=== PATIENT | female | born 1975 | race Caucasian/White ===

== ENCOUNTER 2019-04-03 14:01 | Emergency (ER) | payer SELFPAY ==
[2019-04-03 15:57] LABS: ALT/SGPT 19 U/L (12-78); AST/SGOT 9 U/L (15-37); Albumin 3.8 g/dL (3.4-5.0); Alkaline Phosphatase 50 U/L (45-117); BUN Blood Urea Nitrogen 11 mg/dL (7-18); Bicarbonate 27 mmol/L (21-32); Bilirubin Direct < 0.1 mg/dL (0-0.2); Bilirubin Total 0.2 mg/dL (0.2-1.0); Glucose Level 89 mg/dL (74-106); Potassium 3.9 mmol/L (3.5-5.1); Protein, Total 6.9 g/dL (6.4-8.2); Sodium Level 141 mmol/L (136-145); Troponin (Emerg Dept Use Only) < 0.02 ng/mL (0.0-0.045)
[2019-04-03 15:58] LABS: Absolute Lymphocytes (CBC) 2.1 K/uL (0.7-4.9); Basophils % 0.8 % (0-1.3); Lymphocytes % 28.2 % (15.3-44.8); MPV 7.4 fL (7.6-11.3); RBC Red Blood Cell Count 3.24 M/uL (3.86-4.86)
[2019-04-03 16:03] LABS: Protime INR 0.94
[2019-04-03 16:30] LABS: Anisocytosis 1+; Blood Morphology Comment NOTED (NOT SEEN); Hypochromasia 1+; Platelet Estimate ADEQ; Urine White Blood Cell Casts OK
--- NOTE | 2019-04-03 16:56 | ER ---
Nurse's Notes [facility] Name: Gi Bentley Age: 44 yrs Sex: Female : 1975 Arrival Date: 04/03/2019 Time: 14:03 Bed 5 Private MD: Diagnosis: Anemia in chronic diseases classified elsewhere Presentation: 04/03 14:31 Presenting complaint: Patient states: I was in rehab, and did a routine blood work. ca1 They told me my blood count is at 6. I had a BT and Iron transfusions in September because my blood count then was 4. I have Fibroids in my Uterus and I bleed a lot during my periods. But I am not in my period right now. I have bad cramping now. Transition of care: patient was not received from another setting of care. Onset of symptoms was April 03, 2019. Risk Assessment: Do you want to hurt yourself or someone else? Patient reports no desire to harm self or others. Initial Sepsis Screen: Does the patient meet any 2 criteria? No. Patient's initial sepsis screen is negative. Does the patient have a suspected source of infection? No. Patient's initial sepsis screen is negative. Care prior to arrival: None. 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 - Coronavirus screen:: The patient has NOT traveled to [place] in the past 14 days. The patient has NOT had contact with known/suspected case of Coronavirus?. - Social history:: Smoking status: Patient reports the use of cigarette tobacco products, smokes one-half pack cigarettes per day, Patient uses alcohol, patient/guardian reports chronic longstanding heavy alcohol consumption. street drugs, heroin, Methamphetamine (Meth). - Ebola Screening: : Patient negative for fever greater than or equal to 101.5 degrees Fahrenheit, and additional compatible Ebola Virus Disease symptoms Patient denies exposure to infectious person Patient denies travel to an Ebola-affected area in the 21 days before illness onset No symptoms or risks identified at this time. Screenin:31 Abuse screen: Denies threats or abuse. Denies injuries from another. Nutritional hb screening: No deficits noted. Tuberculosis screening: No symptoms or risk factors identified. Fall Risk None identified. Assessment: 15:15 General: Appears in no apparent distress. Behavior is calm, cooperative. Pain: Denies hb pain. Neuro: Level of Consciousness is awake, alert, obeys commands, Oriented to person, place, time, situation. Cardiovascular: Heart tones S1 S2 present Capillary refill < 3 seconds Patient's skin is warm and dry. Respiratory: Airway is patent Respiratory effort is even, unlabored, Respiratory pattern is regular, symmetrical, Breath sounds are clear bilaterally. GI: No signs and/or symptoms were reported involving the gastrointestinal system. : No signs and/or symptoms were reported regarding the genitourinary system. EENT: No signs and/or symptoms were reported regarding the EENT system. Derm: Skin is intact, is healthy with good turgor, Skin is dry, Skin is pale, Skin temperature is warm. Musculoskeletal: No signs and/or symptoms reported regarding the musculoskeletal system. 16:00 Reassessment: Patient appears in no apparent distress at this time. Patient and/or hb family updated on plan of care and expected duration. Pain level reassessed. Patient is alert, oriented x 3, equal unlabored respirations, skin warm/dry/pink. 17:00 Reassessment: Patient appears in no apparent distress at this time. Patient and/or hb family updated on plan of care and expected duration. Pain level reassessed. Patient is alert, oriented x 3, equal unlabored respirations, skin warm/dry/pink. Vital Signs: 14:39 BP 123 / 82; Pulse 82; Resp 17 S; Temp 97.8(O); Pulse Ox 100% on R/A; Weight 58.97 kg ca1 (R); Height 5 ft. 2 in. (157.48 cm) (R); 15:20 BP 120 / 86 Supine; Pulse 82; hb 15:25 BP 122 / 81 Sitting; Pulse 86; hb 15:30 BP 121 / 85 Standing; Pulse 88; hb 16:30 BP 131 / 90; Pulse 81; Resp 16; Pulse Ox 99% on R/A; hb 14:39 Body Mass Index 23.78 (58.97 kg, 157.48 cm) ca1 ED Course: 14:03 Patient arrived in ED. as 14:35 Triage completed. ca1 14:39 Arm band placed on right wrist. ca1 15:08 Abe Castro PA is PHCP. cp 15:09 Lowell Bustamante MD is Attending Physician. cp 15:25 Inserted saline lock: 20 gauge antecubital area, using aseptic technique. Blood hb collected. 15:31 Patient has correct armband on for positive identification. Placed in gown. Bed in low hb position. Call light in reach. Side rails up X 1. 15:56 Amira Johnson, RN is Primary Nurse. hb 16:55 Tigist Smith MD is Referral Physician. cp 17:02 No provider procedures requiring assistance completed. IV discontinued, intact, hb bleeding controlled, No redness/swelling at site. Pressure dressing applied. Administered Medications: No medications were administered Outcome: 16:55 Discharge ordered by . cp 17:02 Discharged to home ambulatory, with friend. hb 17:02 Condition: stable 17:02 Discharge instructions given to patient, Instructed on discharge instructions, follow up and referral plans. medication usage, Demonstrated understanding of instructions, follow-up care, medications, Prescriptions given X 1. 17:03 Patient left the ED. hb Signatures: Karen Hull Corey, PA PA cp Amira Johnson, RN RN hb Isamar Oliver RN RN ca1
--- NOTE | 2019-04-03 16:56 | EDPHYS ---
Physician Documentation [facility] Name: Gi Bentley Age: 44 yrs Sex: Female : 1975 Arrival Date: 04/03/2019 Time: 14:03 Bed 5 Private MD: ED Physician Lowell Bustamante HPI: 04/03 15:14 This 44 yrs old Female presents to ER via Ambulatory with complaints of cp Abnormal Lab Results. 15:15 Patient reports having blood work yesterday that indicated she was anemic. Patient has cp had anemia in the past that required blood transfusion and iron transfusion. Anemia is due to heavy menstrual bleeding. Denies any current menstrual or rectal bleeding. 15:15 Patient reports she is from [place], [place] and staying at [facility] for drug addiction treatment. Patient reports having routine blood work yesterday indicating she was anemic, so she was told to come to ED for evaluation. 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 - Coronavirus screen:: The patient has NOT traveled to [place] in the past 14 days. The patient has NOT had contact with known/suspected case of Coronavirus?. - Social history:: Smoking status: Patient reports the use of cigarette tobacco products, smokes one-half pack cigarettes per day, Patient uses alcohol, patient/guardian reports chronic longstanding heavy alcohol consumption. street drugs, heroin, Methamphetamine (Meth). - Ebola Screening: : Patient negative for fever greater than or equal to 101.5 degrees Fahrenheit, and additional compatible Ebola Virus Disease symptoms Patient denies exposure to infectious person Patient denies travel to an Ebola-affected area in the 21 days before illness onset No symptoms or risks identified at this time. ROS: 15:22 Eyes: Negative for injury, pain, redness, and discharge. cp 15:22 Constitutional: Negative for body aches, chills, fever, poor PO intake. 15:22 Cardiovascular: Negative for chest pain, edema, palpitations. 15:22 Respiratory: Negative for cough, shortness of breath, wheezing. 15:22 Abdomen/GI: Negative for abdominal pain, nausea, vomiting, and diarrhea, black/tarry stool, rectal bleeding. 15:22 : Negative for urinary symptoms, vaginal bleeding. 15:22 Neuro: Negative for altered mental status, dizziness, headache, syncope, weakness. 15:22 All other systems are negative. Exam: 15:23 Head/Face: Normocephalic, atraumatic. cp 15:23 Constitutional: The patient appears in no acute distress, alert, awake, non-diaphoretic, non-toxic, well developed, well nourished. 15:23 Eyes: Periorbital structures: appear normal, Conjunctiva: normal, no exudate, no injection, Lids and lashes: appear normal, bilaterally. 15:23 ENT: External ear(s): are unremarkable, Nose: is normal, Mouth: Lips: moist, Oral mucosa: pink and intact, moist, Posterior pharynx: is normal, airway is patent, no erythema, no exudate. 15:23 Chest/axilla: Inspection: normal, Palpation: is normal, no crepitus, no tenderness. 15:23 Cardiovascular: Rate: normal, Rhythm: regular, Edema: is not appreciated, JVD: is not appreciated. 15:23 Respiratory: the patient does not display signs of respiratory distress, Respirations: normal, no use of accessory muscles, no retractions, labored breathing, is not present, Breath sounds: are clear throughout, no decreased breath sounds. 15:23 Abdomen/GI: Inspection: abdomen appears normal, Palpation: abdomen is soft and non-tender, in all quadrants. 15:23 Back: pain, is absent, ROM is normal. 15:23 Skin: no rash present. 15:23 Neuro: Orientation: to person, place \T\ time. Mentation: is normal, Cerebellar function: is grossly normal, Motor: moves all fours, strength is normal, Sensation: is normal. 15:35 ECG was reviewed by the Attending Physician. cp 16:50 : Rectal exam: is refused by patient or guardian. cp Vital Signs: 14:39 BP 123 / 82; Pulse 82; Resp 17 S; Temp 97.8(O); Pulse Ox 100% on R/A; Weight 58.97 kg ca1 (R); Height 5 ft. 2 in. (157.48 cm) (R); 15:20 BP 120 / 86 Supine; Pulse 82; hb 15:25 BP 122 / 81 Sitting; Pulse 86; hb 15:30 BP 121 / 85 Standing; Pulse 88; hb 16:30 BP 131 / 90; Pulse 81; Resp 16; Pulse Ox 99% on R/A; hb 14:39 Body Mass Index 23.78 (58.97 kg, 157.48 cm) ca1 MDM: 15:12 Patient medically screened. cp 15:30 Differential Diagnosis GI bleed, anemia, electrolyte abnormality, cardiac arrythmia. cp 16:55 Data reviewed: vital signs, nurses notes, lab test result(s), EKG, I have discussed the cp patient's presentation/case with the attending Emergency Department Physician; and as a result, I will discharge patient. 16:55 Test interpretation: by ED physician or midlevel provider: ECG. cp 16:55 Counseling: I had a detailed discussion with the patient and/or guardian regarding: the cp historical points, exam findings, and any diagnostic results supporting the discharge/admit diagnosis, lab results, the need for outpatient follow up, an OB/Gyne specialist, to return to the emergency department if symptoms worsen or persist or if there are any questions or concerns that arise at home. 04/03 15:14 Order name: Basic Metabolic Panel cp 04/03 15:14 Order name: CBC with Diff cp 04/03 15:14 Order name: LFT's cp 04/03 15:14 Order name: PT-INR cp 04/03 15:14 Order name: Troponin (emerg Dept Use Only) cp 04/03 15:14 Order name: Ptt, Activated cp 04/03 15:59 Order name: Basic Metabolic Panel; Complete Time: 16:12 EDMS 04/03 16:12 Interpretation: Normal except: CL 108; GFR 86; CA 8.3. cp 04/03 15:59 Order name: Liver (Hepatic) Function; Complete Time: 16:12 EDMS 12 16:46 Interpretation: Normal except: AST 9. cp 02 15:59 Order name: Troponin (Emerg Dept Use Only); Complete Time: 16:12 EDMS 02 16:06 Order name: CBC with Automated Diff; Complete Time: 16:46 EDMS 0212 16:13 Interpretation: Normal except: RBC 3.24; HGB 6.6; HCT 22.0; MCV 67.9; MCH 20.5; MCHC cp 30.2; RDW 20.2; MPV 7.4. 02 16:07 Order name: Protime (+INR); Complete Time: 16:12 EDMS 02 16:07 Order name: PTT, Activated Partial Thromb; Complete Time: 16:12 EDMS 04/03 16:31 Order name: CBC Smear Scan; Complete Time: 16:46 EDMS 04/03 16:56 Order name: Urine Dipstick--Ancillary (enter results) bd 04/03 15:14 Order name: EKG; Complete Time: 15:15 cp 02 15:14 Order name: Cardiac monitoring; Complete Time: 15:31 cp 12 15:14 Order name: EKG - Nurse/Tech; Complete Time: 15:31 cp 04/03 15:14 Order name: IV Saline Lock; Complete Time: 15:31 cp 04/03 15:14 Order name: Labs collected and sent; Complete Time: 15:31 cp 12 15:14 Order name: O2 Per Protocol; Complete Time: 15:31 cp 04/03 15:14 Order name: O2 Sat Monitoring; Complete Time: 15:31 cp 04/03 15:14 Order name: Orthostatics; Complete Time: 15:31 cp 12 15:23 Order name: Urine Dipstick-Ancillary (obtain specimen); Complete Time: 15:56 cp 04/03 15:23 Order name: Urine Test (obtain specimen); Complete Time: 15:56 cp 04/03 16:56 Order name: Urine --Ancillary (enter results) bd EC:35 Rate is 76 beats/min. Rhythm is regular. SC interval is normal. QRS interval is normal. cp QT interval is normal. T waves are Flattened in lead III. Interpreted by me. Reviewed by me. Administered Medications: No medications were administered Disposition: 17:35 Co-signature as Attending Physician, Lowell Bustamante MD I agree with the assessment and kdr plan of care. Disposition: 04/03/19 16:55 Discharged to Home. Impression: Anemia in chronic diseases classified elsewhere. - Condition is Stable. - Discharge Instructions: Iron Deficiency Anemia, Adult, Anemia, Nonspecific, Iron-Rich Diet. - Prescriptions for Ferrous Sulfate 325 mg (65 mg Iron) Oral Tablet - take 1 tablet by ORAL route every 8 hours; 90 tablet. - Medication Reconciliation Form, Thank You Letter, Antibiotic Education, Prescription Opioid Use form. - Follow up: Tigist Smith MD; When: 2 - 3 days; Reason: Recheck today's complaints. - Problem is an ongoing problem. - Symptoms are unchanged. Signatures: Dispatcher [employer] EDMS Lowell Bustamante MD MD [facility] Abe Castro PA PA cp Amira Johnson, DAHLIA RN hb Acob, Isamar RN RN ca1 Corrections: (The following items were deleted from the chart) 16:12 16:12 Normal except: CL 108; GFR 86. cp cp 17:03 16:55 04/03/2019 16:55 Discharged to Home. Impression: Anemia in chronic diseases hb classified elsewhere. Condition is Stable. Forms are Medication Reconciliation Form, Thank You Letter, Antibiotic Education, Prescription Opioid Use. Follow up: Tigist Smith; When: 2 - 3 days; Reason: Recheck today's complaints. Problem is an ongoing problem. Symptoms are unchanged. cp
[2019-04-03 17:15] LABS: Urine Blood NEGATIVE (NEG); Urine Glucose NEGATIVE (NEG); Urine Protein NEGATIVE (NEG); Urine Specific Gravity 1.015 (1.005-1.030)
--- NOTE | 2019-04-03 17:58 | EKG ---
Test Date: 2019-04-03 Test Time: 15:32:13 Oceanography Professor: GALINA MEASUREMENT RESULTS: Intervals: Rate: 76 IL: 132 QRSD: 82 QT: 408 QTc: 459 [place]: P: 41 IL: 132 QRS: 27 T: 34 INTERPRETIVE STATEMENTS: Normal sinus rhythm normal ECG No previous ECG available for comparison Electronically Signed On 04-03-19 17:57:47 [employer]W OPERATOR by Yayo Olivo
[2019-04-04 22:47] VITALS: TEMP 97.8
[2019-04-04 22:52] VITALS: BP 131/90; O2SAT 99
== END 2019-04-03 17:03 | disposition home or self-care (01) ==
LOC: ER 14:01
DX: D64.9 Anemia, unspecified (principal); F20.9 Schizophrenia, unspecified; F31.9 Bipolar disorder, unspecified; F17.210 Nicotine dependence, cigarettes, uncomplicated
CPT/HCPCS: 36415; 80048; 80076; 81003; 81025; 84484; 85025; 85610; 85730; 93005; 99283

== ENCOUNTER 2019-04-03 22:50 | Emergency (ER) | payer SELFPAY ==
--- OUTSIDE RECORDS SUMMARY | 2019-04-03 22:55 | XMS REPORT ---
:1975 [facility] Address [address] [place] [address] Care Team Providers Name Role Phone Unavailable Unavailable Unavailable Payers Payer Name Policy Type Policy Number Effective Date Expiration Date Problems This patient has no known problems. Allergies, Adverse Reactions, Alerts Allergy Allergy Status Severity Reaction(s) Onset Inactive Treating Comments Name Type Date Date Clinician codeine DA Active 2019-02 00:00:0 0 codeine DA Active 2018-09 00:00:0 0 codeine DA Active 2015-01 00:00:0 0 Medications This patient has no known medications. Encounters Start End Encounter Admission Attending Care Care Encounter Date/Time Date/Time Type Type Clinicians Facility Department ID 2017-03-25 2017-03-25 Emergency [facility] [id number] 21:46:10 21:46:10 2017-03-25 2017-03-25 Emergency [facility] [id number] 20:41:10 20:41:10 Results Test Description Test Time Test Comments Text Results Atomic Results Result Comments CBC W/O DIFF 2018-10-12 05:41:00 Test Item Value Reference Range Comments WHITE BLOOD CELL (test code=WBC) 9.2 K/mm3 4.5-12.5 RED BLOOD CELL (test code=RBC) 4.38 mill/mm3 3.7-5.2 HEMOGLOBIN (test code=HGB) 11.5 gram/dL 11.5-15.5 HEMATOCRIT (test code=HCT) 37.1 % 36.0-46.0 MEAN CELL VOLUME (test code=MCV) 84.7 fL 80-98 MEAN CELL HGB (test code=MCH) 26.3 picogram 27.0-33.0 MEAN CELL HGB CONCETRATION (test code=MCHC) 31.0 gram/dL 33.0-36.0 RED CELL DISTRIBUTION WIDTH (test code=RDW) TEST NOT PERFORMED % 11.6-16.2 PLATELET COUNT (test code=PLT) 290 K/mm3 150-450 MEAN PLATELET VOLUME (test code=MPV) 9.5 fL 6.7-11.0 URINALYSIS [id number] 05:28:00 Test Item Value Reference Range Comments UA COLOR (test code=COLU) YELLOW YELLOW UA APPEARANCE (test code=APPU) CLEAR CLEAR UA GLUCOSE DIPSTICK (test code=DGLUU) NEGATIVE mg/dL NEGATIVE UA BILIRUBIN DIPSTICK (test code=BILU) NEGATIVE mg/dL NEGATIVE UA KETONE DIPSTICK (test code=KETU) 40 (2+) mg/dL NEGATIVE UA SPECIFIC GRAVITY (test code=SGU) 1.033 1.001-1.035 UA BLOOD DIPSTICK (test code=PRASHANTH) Negative mg/dL NEGATIVE UA PH DIPSTICK (test code=ROGERS) 5.5 5.0-8.0 UA PROTEIN DIPSTICK (test code=PROU) 30 (1+) mg/dL NEGATIVE UA UROBILINIOGEN DIPSTICK (test code=URO) Normal mg/dL NEGATIVE UA NITRITE DIPSTICK (test code=NORI) NEGATIVE NEGATIVE UA LEUKOCYTE ESTERASE W REFLEX (test NEGATIVE Dinesh/uL NEGATIVE code=LEUUR) UA WBC (test code=WBCU) 0-5 per HPF 0-5 UA RBC (test code=RBCU) 0-2 #/HPF 0-5 UA EPITHELIAL CELLS (test code=EPIU) FEW per HPF FEW UA BACTERIA (test code=BACU) MODERATE #/HPF NONE UA MUCUS (test code=MUCU) MANY #/LPF FEW Urine Source? Clean CatchDRUGS OF ABUSE SCREEN [id number] 05:28:00 Test Item Value Reference Range Comments URN COCAINE (test NEGATIVE <300 ng/mL code=COCAURN) URN CANNABINOIDS (test NEGATIVE <50 ng/mL code=CANNABURN) URN AMPHETAMINE (test POSITIVE <1000 ng/mL This test provides only a code=AMPHETURN) preliminary test result. A morespecific alternate chemical method must be used in order toobtain a confirmed analytical result. Gas chromatography/mass spectrometry (GC/MS) is thepreferred confirmatory method. Other chemical confirmationmethods are available. Clinical consideration and professional judgment should be applied to any drug of abusetest result, particularly when preliminary positive resultsare used.Unconfirmed screening results must not be used fornon-medical purposes (e.g., employment testing, legaltesting). URN BARBITURATE (test NEGATIVE <200 ng/mL code=BARBITURN) URN BENZODIAZEPINE (test NEGATIVE <200 ng/mL code=BENZOURN) URN OPIATES (test NEGATIVE <300 ng/mL code=OPIATURN) URN PHENCYCLIDINE (PCP) NEGATIVE <25 ng/mL (test code=PHENCURN) URN METHADONE (test NEGATIVE <300 ng/mL code=METHAURN) Urine Source? Clean CatchVALPROIC ACID (DEPAKENE)2018-10-12 05:13:00 Test Item Value Reference Range Comments VALPROIC ACID (DEPAKENE) (test code=VALP) <3.0 mcg/mL 50.0-100.0 BASIC METABOLIC [id number] 05:10:00 Test Item Value Reference Range Comments SODIUM (test code=NA) 144 mmol/L 136-145 POTASSIUM (test code=K) 3.7 mmol/L 3.5-5.1 CHLORIDE (test code=CL) 110.0 mmol/L 98-107 CARBON DIOXIDE (test 25.0 mmol/L 21-32 code=CO2) ANION GAP (test code=GAP) 12.7 10-20 GLUCOSE (test code=GLU) 84 mg/dL 74-106 BLOOD UREA NITROGEN (test 14 mg/dL 7-18 code=BUN) GLOMERULAR FILTRATION RATE > 60 mL/min >=60 Estimated GFR by using (test code=GFR) Modified MDRD formula.Chronic kidney disease is defined as either kidney damageor GFR <60 mL/min/1.73 m2 for >3 months. CREATININE (test code=CREAT) 0.70 mg/dL 0.55-1.02 Note change in reference range due to change in reagent. BUN/CREATININE RATIO (test 20.0 10-20 code=BUN/CREA) CALCIUM (test code=CA) 8.9 mg/dL 8.5-10.1 HEPATIC FUNCTION [id number] 05:10:00 Test Item Value Reference Range Comments TOTAL PROTEIN (test code=PROT) 7.4 gram/dL 6.4-8.2 ALBUMIN (test code=ALB) 4.0 g/dL 3.4-5.0 GLOBULIN (test code=GLOB) 3.4 gram/dL 2.7-4.2 ALBUMIN/GLOBULIN RATIO (test 1.2 0.75-1.50 code=A/G) BILIRUBIN TOTAL (test 0.50 mg/dL 0.0-1.0 code=BILT) BILIRUBIN DIRECT (test 0.12 mg/dL 0.0-0.20 code=BILD) SGOT/AST (test code=AST) 8 IUnit/L 15-37 SGPT/ALT (test code=ALT) 19 IUnit/L 12-78 ALKALINE PHOSPHATASE TOTAL 49 IUnit/L 45-117 Note change in reference (test code=ALKP) range due to change in reagent. [id number] 05:10:00 Test Item Value Reference Range Comments ALCOHOL (test code=ALC) < 3 mg/dL 0.0-3.0 INTERPRETIVE DATA NOTE: POSITIVE SCREENING RESULTS SHOULD BE CONSIDERED PRESUMPTIVE.WHEN COLLECTED FOR MEDICAL PURPOSES ONLY. SPECIMEN WILL NOTBE COLLECTED BY CHAIN OF CUSTODY.IF A CONFIRMATION OF POSITIVE RESULTS IS DESIRED, ACONFIRMATION TEST MUST BE REQUESTED BY THE PHYSICIAN AT ANADDITIONAL CHARGE TO THE PATIENT. HCG SERUM [id number] 05:08:00 Test Item Value Reference Range Comments HCG SERUM QUAL (test NEGATIVE NEGATIVE This HCGQL test is NOT code=HCGQL) applicable for MALE patients.Check with nurse about probable order error.If Tumor Marker Test needed, nurse should order test "HCGTU"(Test #550.58166) -- [id number] 05:08:00 Test Item Value Reference Range Comments ACETAMINOPHEN (test code=ACET) < 10 mcg/mL 10-30 A RANGE OF 10-30 mcg/mL IS A THERAPEUTIC RANGE. TOXIC CONCENTRATIONS: >150 mcg/mL AT 4 HOURS AFTER INGESTION >=50 mcg/mL AT 12 HOURS AFTER INGESTION [id number] 05:08:00 Test Item Value Reference Range Comments SALICYLATE (test code=CLAUDIO) < 1.7 mg/dL 2.8-20.0 BASIC METABOLIC [id number] 05:04:00 Test Item Value Reference Range Comments SODIUM (test code=NA) 144 mmol/L 136-145 POTASSIUM (test code=K) 3.7 mmol/L 3.5-5.1 CHLORIDE (test code=CL) 110.0 mmol/L 98-107 CARBON DIOXIDE (test code=CO2) mmol/L 21-32 ANION GAP (test code=GAP) 10-20 GLUCOSE (test code=GLU) mg/dL 74-106 BLOOD UREA NITROGEN (test code=BUN) mg/dL 7-18 GLOMERULAR FILTRATION RATE (test code=GFR) mL/min >=60 CREATININE (test code=CREAT) mg/dL 0.55-1.02 BUN/CREATININE RATIO (test code=BUN/CREA) 10-20 CALCIUM (test code=CA) mg/dL 8.5-10.1 HEPATIC FUNCTION [id number] 05:04:00 Test Item Value Reference Range Comments TOTAL PROTEIN (test code=PROT) gram/dL 6.4-8.2 ALBUMIN (test code=ALB) g/dL 3.4-5.0 GLOBULIN (test code=GLOB) gram/dL 2.7-4.2 ALBUMIN/GLOBULIN RATIO (test code=A/G) 0.75-1.50 BILIRUBIN TOTAL (test code=BILT) mg/dL 0.0-1.0 BILIRUBIN DIRECT (test code=BILD) mg/dL 0.0-0.20 SGOT/AST (test code=AST) IUnit/L 15-37 SGPT/ALT (test code=ALT) IUnit/L 12-78 ALKALINE PHOSPHATASE TOTAL (test code=ALKP) IUnit/L 45-117 [id number] 05:04:00 Test Item Value Reference Range Comments ALCOHOL (test code=ALC) mg/dL 0-3 HCG SERUM [id number] 05:00:00 Test Item Value Reference Range Comments HCG SERUM QUAL (test NEGATIVE NEGATIVE This HCGQL test is NOT code=HCGQL) applicable for MALE patients.Check with nurse about probable order error.If Tumor Marker Test needed, nurse should order test "HCGTU"(Test #550.37900) -- [id number] 05:00:00 Test Item Value Reference Range Comments ACETAMINOPHEN (test code=ACET) mcg/mL 10-30 [id number] 05:00:00 Test Item Value Reference Range Comments SALICYLATE (test code=CLAUDIO) mg/dL 2.8-20.0 URINALYSIS [id number] 04:59:00 Test Item Value Reference Range Comments UA COLOR (test code=COLU) YELLOW YELLOW UA APPEARANCE (test code=APPU) CLEAR CLEAR UA GLUCOSE DIPSTICK (test code=DGLUU) NEGATIVE mg/dL NEGATIVE UA BILIRUBIN DIPSTICK (test code=BILU) NEGATIVE mg/dL NEGATIVE UA KETONE DIPSTICK (test code=KETU) 40 (2+) mg/dL NEGATIVE UA SPECIFIC GRAVITY (test code=SGU) 1.033 1.001-1.035 UA BLOOD DIPSTICK (test code=PRASHANTH) Negative mg/dL NEGATIVE UA PH DIPSTICK (test code=ROGERS) 5.5 5.0-8.0 UA PROTEIN DIPSTICK (test code=PROU) 30 (1+) mg/dL NEGATIVE UA UROBILINIOGEN DIPSTICK (test code=URO) Normal mg/dL NEGATIVE UA NITRITE DIPSTICK (test code=NORI) NEGATIVE NEGATIVE UA LEUKOCYTE ESTERASE W REFLEX (test NEGATIVE Dinesh/uL NEGATIVE code=LEUUR) UA WBC (test code=WBCU) 0-5 per HPF 0-5 UA RBC (test code=RBCU) 0-2 #/HPF 0-5 UA EPITHELIAL CELLS (test code=EPIU) FEW per HPF FEW UA BACTERIA (test code=BACU) MODERATE #/HPF NONE UA MUCUS (test code=MUCU) MANY #/LPF FEW Urine Source? Clean CatchDRUGS OF ABUSE SCREEN [id number] 04:59:00 Test Item Value Reference Range Comments URN COCAINE (test code=COCAURN) <300 ng/mL URN CANNABINOIDS (test code=CANNABURN) <50 ng/mL URN AMPHETAMINE (test code=AMPHETURN) <1000 ng/mL URN BARBITURATE (test code=BARBITURN) <200 ng/mL URN BENZODIAZEPINE (test code=BENZOURN) <200 ng/mL URN OPIATES (test code=OPIATURN) <300 ng/mL URN PHENCYCLIDINE (PCP) (test code=PHENCURN) <25 ng/mL URN METHADONE (test code=METHAURN) <300 ng/mL Urine Source? Clean CatchCBC W/AUTO [id number] 10:50:00 Test Item Value Reference Range Comments WHITE BLOOD CELL (test code=WBC) 10.0 K/mm3 4.5-12.5 RED BLOOD CELL (test code=RBC) 4.31 mill/mm3 3.7-5.2 HEMOGLOBIN (test code=HGB) 9.2 gram/dL 11.5-15.5 HEMATOCRIT (test code=HCT) 33.0 % 36.0-46.0 MEAN CELL VOLUME (test code=MCV) 76.6 fL 80-98 MEAN CELL HGB (test code=MCH) 21.3 picogram 27.0-33.0 MEAN CELL HGB CONCETRATION (test 27.9 gram/dL 33.0-36.0 code=MCHC) RED CELL DISTRIBUTION WIDTH (test 26.0 % 11.6-16.2 code=RDW) RED CELL DISTRIBUTION WIDTH SD (test 61.8 fL 37.0-51.0 code=RDW-SD) PLATELET COUNT (test code=PLT) 306 K/mm3 150-450 MEAN PLATELET VOLUME (test code=MPV) 9.2 fL 6.7-11.0 NEUTROPHIL % (test code=NT%) 66.8 % 39.0-69.0 IMMATURE GRANULOCYTE % (test code=IG%) 1.2 % 0.0-5.0 LYMPHOCYTE % (test code=LY%) 22.2 % 25.0-55.0 MONOCYTE % (test code=MO%) 5.7 % 0.0-10.0 EOSINOPHIL % (test code=EO%) 3.4 % 0.0-5.0 BASOPHIL % (test code=BA%) 0.7 % 0.0-1.0 NUCLEATED RBC % (test code=NRBC%) 0.0 % 0-0 NEUTROPHIL # (test code=NT#) 6.65 K/mm3 1.8-7.7 IMMATURE GRANULOCYTE # (test code=IG#) 0.12 x10 3/uL 0-0.03 LYMPHOCYTE # (test code=LY#) 2.21 K/mm3 1.0-5.0 MONOCYTE # (test code=MO#) 0.57 K/mm3 0-0.8 EOSINOPHIL # (test code=EO#) 0.34 K/mm3 0.0-0.5 BASOPHIL # (test code=BA#) 0.07 K/mm3 0.0-0.2 NUCLEATED RBC # (test code=NRBC#) 0.00 K/mm3 0.0-0.1 MANUAL DIFF REQUIRED (test code=MDIFF) NO, ONLY SCAN NEEDED DIFFERENTIAL [id number] 10:50:00 Test Item Value Reference Range Comments STAIN ACCEPTABILITY (test code=STN STAIN ACCEPTABLE ACCEPTABLE) POLYCHROMASIA (test code=POLC) 1+ HYPOCHROMIA (test code=HYPO) 1+ POIKILOCYTOSIS (test code=POIK) 2+ ANISOCYTOSIS (test code=ANISO) 2+ MICROCYTOSIS (test code=MICR) 2+ TEAR DROP CELLS (test code=TEAR) 1+ ELLIPTOCYTES (test code=ELL) 1+ CRENATED CELLS (test code=CREN) 1+ PLATELET ESTIMATE (test code=PLTEST) ADEQUATE PLATELET MORPHOLOGY (test code=PLTMORPH) NORMAL CBC W/AUTO [id number] 09:44:00 Test Item Value Reference Range Comments WHITE BLOOD CELL (test code=WBC) 10.0 K/mm3 4.5-12.5 RED BLOOD CELL (test code=RBC) 4.31 mill/mm3 3.7-5.2 HEMOGLOBIN (test code=HGB) 9.2 gram/dL 11.5-15.5 HEMATOCRIT (test code=HCT) 33.0 % 36.0-46.0 MEAN CELL VOLUME (test code=MCV) 76.6 fL 80-98 MEAN CELL HGB (test code=MCH) 21.3 picogram 27.0-33.0 MEAN CELL HGB CONCETRATION (test 27.9 gram/dL 33.0-36.0 code=MCHC) RED CELL DISTRIBUTION WIDTH (test 26.0 % 11.6-16.2 code=RDW) RED CELL DISTRIBUTION WIDTH SD (test 61.8 fL 37.0-51.0 code=RDW-SD) PLATELET COUNT (test code=PLT) 306 K/mm3 150-450 MEAN PLATELET VOLUME (test code=MPV) 9.2 fL 6.7-11.0 NEUTROPHIL % (test code=NT%) 66.8 % 39.0-69.0 IMMATURE GRANULOCYTE % (test code=IG%) 1.2 % 0.0-5.0 LYMPHOCYTE % (test code=LY%) 22.2 % 25.0-55.0 MONOCYTE % (test code=MO%) 5.7 % 0.0-10.0 EOSINOPHIL % (test code=EO%) 3.4 % 0.0-5.0 BASOPHIL % (test code=BA%) 0.7 % 0.0-1.0 NUCLEATED RBC % (test code=NRBC%) 0.0 % 0-0 NEUTROPHIL # (test code=NT#) 6.65 K/mm3 1.8-7.7 IMMATURE GRANULOCYTE # (test code=IG#) 0.12 x10 3/uL 0-0.03 LYMPHOCYTE # (test code=LY#) 2.21 K/mm3 1.0-5.0 MONOCYTE # (test code=MO#) 0.57 K/mm3 0-0.8 EOSINOPHIL # (test code=EO#) 0.34 K/mm3 0.0-0.5 BASOPHIL # (test code=BA#) 0.07 K/mm3 0.0-0.2 NUCLEATED RBC # (test code=NRBC#) 0.00 K/mm3 0.0-0.1 MANUAL DIFF REQUIRED (test code=MDIFF) NO, ONLY SCAN NEEDED DIFFERENTIAL [id number] 09:44:00 Test Item Value Reference Range Comments STAIN ACCEPTABILITY (test code=STN ACCEPTABLE) CABOT RINGS (test code=CAB) MORPHOLOGY COMMENT (test code=MOC) PLATELET ESTIMATE (test code=PLTEST) PLATELET MORPHOLOGY (test code=PLTMORPH) CBC W/AUTO [id number] 09:44:00 Test Item Value Reference Range Comments WHITE BLOOD CELL (test code=WBC) 10.0 K/mm3 4.5-12.5 RED BLOOD CELL (test code=RBC) 4.31 mill/mm3 3.7-5.2 HEMOGLOBIN (test code=HGB) 9.2 gram/dL 11.5-15.5 HEMATOCRIT (test code=HCT) 33.0 % 36.0-46.0 MEAN CELL VOLUME (test code=MCV) 76.6 fL 80-98 MEAN CELL HGB (test code=MCH) 21.3 picogram 27.0-33.0 MEAN CELL HGB CONCETRATION (test 27.9 gram/dL 33.0-36.0 code=MCHC) RED CELL DISTRIBUTION WIDTH (test 26.0 % 11.6-16.2 code=RDW) RED CELL DISTRIBUTION WIDTH SD (test 61.8 fL 37.0-51.0 code=RDW-SD) PLATELET COUNT (test code=PLT) 306 K/mm3 150-450 MEAN PLATELET VOLUME (test code=MPV) 9.2 fL 6.7-11.0 NEUTROPHIL % (test code=NT%) 66.8 % 39.0-69.0 IMMATURE GRANULOCYTE % (test code=IG%) 1.2 % 0.0-5.0 LYMPHOCYTE % (test code=LY%) 22.2 % 25.0-55.0 MONOCYTE % (test code=MO%) 5.7 % 0.0-10.0 EOSINOPHIL % (test code=EO%) 3.4 % 0.0-5.0 BASOPHIL % (test code=BA%) 0.7 % 0.0-1.0 NUCLEATED RBC % (test code=NRBC%) 0.0 % 0-0 NEUTROPHIL # (test code=NT#) 6.65 K/mm3 1.8-7.7 IMMATURE GRANULOCYTE # (test code=IG#) 0.12 x10 3/uL 0-0.03 LYMPHOCYTE # (test code=LY#) 2.21 K/mm3 1.0-5.0 MONOCYTE # (test code=MO#) 0.57 K/mm3 0-0.8 EOSINOPHIL # (test code=EO#) 0.34 K/mm3 0.0-0.5 BASOPHIL # (test code=BA#) 0.07 K/mm3 0.0-0.2 NUCLEATED RBC # (test code=NRBC#) 0.00 K/mm3 0.0-0.1 MANUAL DIFF REQUIRED (test code=MDIFF) NO, ONLY SCAN NEEDED DIFFERENTIAL [id number] 09:44:00 Test Item Value Reference Range Comments STAIN ACCEPTABILITY (test code=STN ACCEPTABLE) CABOT RINGS (test code=CAB) MORPHOLOGY COMMENT (test code=MOC) PLATELET ESTIMATE (test code=PLTEST) PLATELET MORPHOLOGY (test code=PLTMORPH) CBC W/AUTO [id number] 09:44:00 Test Item Value Reference Range Comments WHITE BLOOD CELL (test code=WBC) 10.0 K/mm3 4.5-12.5 RED BLOOD CELL (test code=RBC) 4.31 mill/mm3 3.7-5.2 HEMOGLOBIN (test code=HGB) 9.2 gram/dL 11.5-15.5 HEMATOCRIT (test code=HCT) 33.0 % 36.0-46.0 MEAN CELL VOLUME (test code=MCV) 76.6 fL 80-98 MEAN CELL HGB (test code=MCH) 21.3 picogram 27.0-33.0 MEAN CELL HGB CONCETRATION (test 27.9 gram/dL 33.0-36.0 code=MCHC) RED CELL DISTRIBUTION WIDTH (test 26.0 % 11.6-16.2 code=RDW) RED CELL DISTRIBUTION WIDTH SD (test 61.8 fL 37.0-51.0 code=RDW-SD) PLATELET COUNT (test code=PLT) 306 K/mm3 150-450 MEAN PLATELET VOLUME (test code=MPV) 9.2 fL 6.7-11.0 NEUTROPHIL % (test code=NT%) 66.8 % 39.0-69.0 IMMATURE GRANULOCYTE % (test code=IG%) 1.2 % 0.0-5.0 LYMPHOCYTE % (test code=LY%) 22.2 % 25.0-55.0 MONOCYTE % (test code=MO%) 5.7 % 0.0-10.0 EOSINOPHIL % (test code=EO%) 3.4 % 0.0-5.0 BASOPHIL % (test code=BA%) 0.7 % 0.0-1.0 NUCLEATED RBC % (test code=NRBC%) 0.0 % 0-0 NEUTROPHIL # (test code=NT#) 6.65 K/mm3 1.8-7.7 IMMATURE GRANULOCYTE # (test code=IG#) 0.12 x10 3/uL 0-0.03 LYMPHOCYTE # (test code=LY#) 2.21 K/mm3 1.0-5.0 MONOCYTE # (test code=MO#) 0.57 K/mm3 0-0.8 EOSINOPHIL # (test code=EO#) 0.34 K/mm3 0.0-0.5 BASOPHIL # (test code=BA#) 0.07 K/mm3 0.0-0.2 NUCLEATED RBC # (test code=NRBC#) 0.00 K/mm3 0.0-0.1 MANUAL DIFF REQUIRED (test code=MDIFF) NO, ONLY SCAN NEEDED DIFFERENTIAL [id number] 09:44:00 Test Item Value Reference Range Comments STAIN ACCEPTABILITY (test code=STN ACCEPTABLE) MORPHOLOGY COMMENT (test code=MOC) PLATELET ESTIMATE (test code=PLTEST) PLATELET MORPHOLOGY (test code=PLTMORPH) CBC W/AUTO [id number] 09:44:00 Test Item Value Reference Range Comments WHITE BLOOD CELL (test code=WBC) 10.0 K/mm3 4.5-12.5 RED BLOOD CELL (test code=RBC) 4.31 mill/mm3 3.7-5.2 HEMOGLOBIN (test code=HGB) 9.2 gram/dL 11.5-15.5 HEMATOCRIT (test code=HCT) 33.0 % 36.0-46.0 MEAN CELL VOLUME (test code=MCV) 76.6 fL 80-98 MEAN CELL HGB (test code=MCH) 21.3 picogram 27.0-33.0 MEAN CELL HGB CONCETRATION (test 27.9 gram/dL 33.0-36.0 code=MCHC) RED CELL DISTRIBUTION WIDTH (test 26.0 % 11.6-16.2 code=RDW) RED CELL DISTRIBUTION WIDTH SD (test 61.8 fL 37.0-51.0 code=RDW-SD) PLATELET COUNT (test code=PLT) 306 K/mm3 150-450 MEAN PLATELET VOLUME (test code=MPV) 9.2 fL 6.7-11.0 NEUTROPHIL % (test code=NT%) 66.8 % 39.0-69.0 IMMATURE GRANULOCYTE % (test code=IG%) 1.2 % 0.0-5.0 LYMPHOCYTE % (test code=LY%) 22.2 % 25.0-55.0 MONOCYTE % (test code=MO%) 5.7 % 0.0-10.0 EOSINOPHIL % (test code=EO%) 3.4 % 0.0-5.0 BASOPHIL % (test code=BA%) 0.7 % 0.0-1.0 NUCLEATED RBC % (test code=NRBC%) 0.0 % 0-0 NEUTROPHIL # (test code=NT#) 6.65 K/mm3 1.8-7.7 IMMATURE GRANULOCYTE # (test code=IG#) 0.12 x10 3/uL 0-0.03 LYMPHOCYTE # (test code=LY#) 2.21 K/mm3 1.0-5.0 MONOCYTE # (test code=MO#) 0.57 K/mm3 0-0.8 EOSINOPHIL # (test code=EO#) 0.34 K/mm3 0.0-0.5 BASOPHIL # (test code=BA#) 0.07 K/mm3 0.0-0.2 NUCLEATED RBC # (test code=NRBC#) 0.00 K/mm3 0.0-0.1 MANUAL DIFF REQUIRED (test code=MDIFF) NO, ONLY SCAN NEEDED DIFFERENTIAL [id number] 09:44:00 Test Item Value Reference Range Comments STAIN ACCEPTABILITY (test code=STN ACCEPTABLE) CABOT RINGS (test code=CAB) MORPHOLOGY COMMENT (test code=MOC) PLATELET ESTIMATE (test code=PLTEST) PLATELET MORPHOLOGY (test code=PLTMORPH) CBC W/AUTO [id number] 06:36:00 Test Item Value Reference Range Comments WHITE BLOOD CELL (test code=WBC) 13.9 K/mm3 4.5-12.5 RED BLOOD CELL (test code=RBC) 4.57 mill/mm3 3.7-5.2 HEMOGLOBIN (test code=HGB) 9.5 gram/dL 11.5-15.5 HEMATOCRIT (test code=HCT) 34.9 % 36.0-46.0 MEAN CELL VOLUME (test code=MCV) 76.4 fL 80-98 MEAN CELL HGB (test code=MCH) 20.8 picogram 27.0-33.0 MEAN CELL HGB CONCETRATION (test 27.2 gram/dL 33.0-36.0 code=MCHC) RED CELL DISTRIBUTION WIDTH (test 25.6 % 11.6-16.2 code=RDW) RED CELL DISTRIBUTION WIDTH SD (test 61.3 fL 37.0-51.0 code=RDW-SD) PLATELET COUNT (test code=PLT) 340 K/mm3 150-450 MEAN PLATELET VOLUME (test code=MPV) 9.2 fL 6.7-11.0 NEUTROPHIL % (test code=NT%) 66.9 % 39.0-69.0 IMMATURE GRANULOCYTE % (test code=IG%) 1.4 % 0.0-5.0 LYMPHOCYTE % (test code=LY%) 21.1 % 25.0-55.0 MONOCYTE % (test code=MO%) 7.4 % 0.0-10.0 EOSINOPHIL % (test code=EO%) 2.6 % 0.0-5.0 BASOPHIL % (test code=BA%) 0.6 % 0.0-1.0 NUCLEATED RBC % (test code=NRBC%) 0.0 % 0-0 NEUTROPHIL # (test code=NT#) 9.28 K/mm3 1.8-7.7 IMMATURE GRANULOCYTE # (test code=IG#) 0.20 x10 3/uL 0-0.03 LYMPHOCYTE # (test code=LY#) 2.93 K/mm3 1.0-5.0 MONOCYTE # (test code=MO#) 1.03 K/mm3 0-0.8 EOSINOPHIL # (test code=EO#) 0.36 K/mm3 0.0-0.5 BASOPHIL # (test code=BA#) 0.09 K/mm3 0.0-0.2 NUCLEATED RBC # (test code=NRBC#) 0.00 K/mm3 0.0-0.1 MANUAL DIFF REQUIRED (test code=MDIFF) NO, ONLY SCAN NEEDED DIFFERENTIAL [id number] 06:36:00 Test Item Value Reference Range Comments STAIN ACCEPTABILITY (test code=STN STAIN ACCEPTABLE ACCEPTABLE) POLYCHROMASIA (test code=POLC) 1+ HYPOCHROMIA (test code=HYPO) 1+ POIKILOCYTOSIS (test code=POIK) 2+ ANISOCYTOSIS (test code=ANISO) 2+ MICROCYTOSIS (test code=MICR) 1+ MACROCYTOSIS (test code=MACR) 1+ OVALOCYTES (test code=OVAL) 1+ SCHISTOCYTES (test code=DAVEY) 1+ PLATELET ESTIMATE (test code=PLTEST) ADEQUATE PLATELET MORPHOLOGY (test code=PLTMORPH) NORMAL CBC W/AUTO [id number] 05:31:00 Test Item Value Reference Range Comments WHITE BLOOD CELL (test code=WBC) 13.9 K/mm3 4.5-12.5 RED BLOOD CELL (test code=RBC) 4.57 mill/mm3 3.7-5.2 HEMOGLOBIN (test code=HGB) 9.5 gram/dL 11.5-15.5 HEMATOCRIT (test code=HCT) 34.9 % 36.0-46.0 MEAN CELL VOLUME (test code=MCV) 76.4 fL 80-98 MEAN CELL HGB (test code=MCH) 20.8 picogram 27.0-33.0 MEAN CELL HGB CONCETRATION (test 27.2 gram/dL 33.0-36.0 code=MCHC) RED CELL DISTRIBUTION WIDTH (test 25.6 % 11.6-16.2 code=RDW) RED CELL DISTRIBUTION WIDTH SD (test 61.3 fL 37.0-51.0 code=RDW-SD) PLATELET COUNT (test code=PLT) 340 K/mm3 150-450 MEAN PLATELET VOLUME (test code=MPV) 9.2 fL 6.7-11.0 NEUTROPHIL % (test code=NT%) 66.9 % 39.0-69.0 IMMATURE GRANULOCYTE % (test code=IG%) 1.4 % 0.0-5.0 LYMPHOCYTE % (test code=LY%) 21.1 % 25.0-55.0 MONOCYTE % (test code=MO%) 7.4 % 0.0-10.0 EOSINOPHIL % (test code=EO%) 2.6 % 0.0-5.0 BASOPHIL % (test code=BA%) 0.6 % 0.0-1.0 NUCLEATED RBC % (test code=NRBC%) 0.0 % 0-0 NEUTROPHIL # (test code=NT#) 9.28 K/mm3 1.8-7.7 IMMATURE GRANULOCYTE # (test code=IG#) 0.20 x10 3/uL 0-0.03 LYMPHOCYTE # (test code=LY#) 2.93 K/mm3 1.0-5.0 MONOCYTE # (test code=MO#) 1.03 K/mm3 0-0.8 EOSINOPHIL # (test code=EO#) 0.36 K/mm3 0.0-0.5 BASOPHIL # (test code=BA#) 0.09 K/mm3 0.0-0.2 NUCLEATED RBC # (test code=NRBC#) 0.00 K/mm3 0.0-0.1 MANUAL DIFF REQUIRED (test code=MDIFF) NO, ONLY SCAN NEEDED DIFFERENTIAL [id number] 05:31:00 Test Item Value Reference Range Comments STAIN ACCEPTABILITY (test code=STN ACCEPTABLE) CABOT RINGS (test code=CAB) MORPHOLOGY COMMENT (test code=MOC) PLATELET ESTIMATE (test code=PLTEST) PLATELET MORPHOLOGY (test code=PLTMORPH) CBC W/AUTO [id number] 05:31:00 Test Item Value Reference Range Comments WHITE BLOOD CELL (test code=WBC) 13.9 K/mm3 4.5-12.5 RED BLOOD CELL (test code=RBC) 4.57 mill/mm3 3.7-5.2 HEMOGLOBIN (test code=HGB) 9.5 gram/dL 11.5-15.5 HEMATOCRIT (test code=HCT) 34.9 % 36.0-46.0 MEAN CELL VOLUME (test code=MCV) 76.4 fL 80-98 MEAN CELL HGB (test code=MCH) 20.8 picogram 27.0-33.0 MEAN CELL HGB CONCETRATION (test 27.2 gram/dL 33.0-36.0 code=MCHC) RED CELL DISTRIBUTION WIDTH (test 25.6 % 11.6-16.2 code=RDW) RED CELL DISTRIBUTION WIDTH SD (test 61.3 fL 37.0-51.0 code=RDW-SD) PLATELET COUNT (test code=PLT) 340 K/mm3 150-450 MEAN PLATELET VOLUME (test code=MPV) 9.2 fL 6.7-11.0 NEUTROPHIL % (test code=NT%) 66.9 % 39.0-69.0 IMMATURE GRANULOCYTE % (test code=IG%) 1.4 % 0.0-5.0 LYMPHOCYTE % (test code=LY%) 21.1 % 25.0-55.0 MONOCYTE % (test code=MO%) 7.4 % 0.0-10.0 EOSINOPHIL % (test code=EO%) 2.6 % 0.0-5.0 BASOPHIL % (test code=BA%) 0.6 % 0.0-1.0 NUCLEATED RBC % (test code=NRBC%) 0.0 % 0-0 NEUTROPHIL # (test code=NT#) 9.28 K/mm3 1.8-7.7 IMMATURE GRANULOCYTE # (test code=IG#) 0.20 x10 3/uL 0-0.03 LYMPHOCYTE # (test code=LY#) 2.93 K/mm3 1.0-5.0 MONOCYTE # (test code=MO#) 1.03 K/mm3 0-0.8 EOSINOPHIL # (test code=EO#) 0.36 K/mm3 0.0-0.5 BASOPHIL # (test code=BA#) 0.09 K/mm3 0.0-0.2 NUCLEATED RBC # (test code=NRBC#) 0.00 K/mm3 0.0-0.1 MANUAL DIFF REQUIRED (test code=MDIFF) NO, ONLY SCAN NEEDED DIFFERENTIAL [id number] 05:31:00 Test Item Value Reference Range Comments STAIN ACCEPTABILITY (test code=STN ACCEPTABLE) CABOT RINGS (test code=CAB) MORPHOLOGY COMMENT (test code=MOC) PLATELET ESTIMATE (test code=PLTEST) PLATELET MORPHOLOGY (test code=PLTMORPH) CBC W/AUTO [id number] 05:31:00 Test Item Value Reference Range Comments WHITE BLOOD CELL (test code=WBC) 13.9 K/mm3 4.5-12.5 RED BLOOD CELL (test code=RBC) 4.57 mill/mm3 3.7-5.2 HEMOGLOBIN (test code=HGB) 9.5 gram/dL 11.5-15.5 HEMATOCRIT (test code=HCT) 34.9 % 36.0-46.0 MEAN CELL VOLUME (test code=MCV) 76.4 fL 80-98 MEAN CELL HGB (test code=MCH) 20.8 picogram 27.0-33.0 MEAN CELL HGB CONCETRATION (test 27.2 gram/dL 33.0-36.0 code=MCHC) RED CELL DISTRIBUTION WIDTH (test 25.6 % 11.6-16.2 code=RDW) RED CELL DISTRIBUTION WIDTH SD (test 61.3 fL 37.0-51.0 code=RDW-SD) PLATELET COUNT (test code=PLT) 340 K/mm3 150-450 MEAN PLATELET VOLUME (test code=MPV) 9.2 fL 6.7-11.0 NEUTROPHIL % (test code=NT%) 66.9 % 39.0-69.0 IMMATURE GRANULOCYTE % (test code=IG%) 1.4 % 0.0-5.0 LYMPHOCYTE % (test code=LY%) 21.1 % 25.0-55.0 MONOCYTE % (test code=MO%) 7.4 % 0.0-10.0 EOSINOPHIL % (test code=EO%) 2.6 % 0.0-5.0 BASOPHIL % (test code=BA%) 0.6 % 0.0-1.0 NUCLEATED RBC % (test code=NRBC%) 0.0 % 0-0 NEUTROPHIL # (test code=NT#) 9.28 K/mm3 1.8-7.7 IMMATURE GRANULOCYTE # (test code=IG#) 0.20 x10 3/uL 0-0.03 LYMPHOCYTE # (test code=LY#) 2.93 K/mm3 1.0-5.0 MONOCYTE # (test code=MO#) 1.03 K/mm3 0-0.8 EOSINOPHIL # (test code=EO#) 0.36 K/mm3 0.0-0.5 BASOPHIL # (test code=BA#) 0.09 K/mm3 0.0-0.2 NUCLEATED RBC # (test code=NRBC#) 0.00 K/mm3 0.0-0.1 MANUAL DIFF REQUIRED (test code=MDIFF) NO, ONLY SCAN NEEDED DIFFERENTIAL [id number] 05:31:00 Test Item Value Reference Range Comments STAIN ACCEPTABILITY (test code=STN ACCEPTABLE) MORPHOLOGY COMMENT (test code=MOC) PLATELET ESTIMATE (test code=PLTEST) PLATELET MORPHOLOGY (test code=PLTMORPH) CBC W/AUTO [id number] 05:31:00 Test Item Value Reference Range Comments WHITE BLOOD CELL (test code=WBC) 13.9 K/mm3 4.5-12.5 RED BLOOD CELL (test code=RBC) 4.57 mill/mm3 3.7-5.2 HEMOGLOBIN (test code=HGB) 9.5 gram/dL 11.5-15.5 HEMATOCRIT (test code=HCT) 34.9 % 36.0-46.0 MEAN CELL VOLUME (test code=MCV) 76.4 fL 80-98 MEAN CELL HGB (test code=MCH) 20.8 picogram 27.0-33.0 MEAN CELL HGB CONCETRATION (test 27.2 gram/dL 33.0-36.0 code=MCHC) RED CELL DISTRIBUTION WIDTH (test 25.6 % 11.6-16.2 code=RDW) RED CELL DISTRIBUTION WIDTH SD (test 61.3 fL 37.0-51.0 code=RDW-SD) PLATELET COUNT (test code=PLT) 340 K/mm3 150-450 MEAN PLATELET VOLUME (test code=MPV) 9.2 fL 6.7-11.0 NEUTROPHIL % (test code=NT%) 66.9 % 39.0-69.0 IMMATURE GRANULOCYTE % (test code=IG%) 1.4 % 0.0-5.0 LYMPHOCYTE % (test code=LY%) 21.1 % 25.0-55.0 MONOCYTE % (test code=MO%) 7.4 % 0.0-10.0 EOSINOPHIL % (test code=EO%) 2.6 % 0.0-5.0 BASOPHIL % (test code=BA%) 0.6 % 0.0-1.0 NUCLEATED RBC % (test code=NRBC%) 0.0 % 0-0 NEUTROPHIL # (test code=NT#) 9.28 K/mm3 1.8-7.7 IMMATURE GRANULOCYTE # (test code=IG#) 0.20 x10 3/uL 0-0.03 LYMPHOCYTE # (test code=LY#) 2.93 K/mm3 1.0-5.0 MONOCYTE # (test code=MO#) 1.03 K/mm3 0-0.8 EOSINOPHIL # (test code=EO#) 0.36 K/mm3 0.0-0.5 BASOPHIL # (test code=BA#) 0.09 K/mm3 0.0-0.2 NUCLEATED RBC # (test code=NRBC#) 0.00 K/mm3 0.0-0.1 MANUAL DIFF REQUIRED (test code=MDIFF) NO, ONLY SCAN NEEDED DIFFERENTIAL [id number] 05:31:00 Test Item Value Reference Range Comments STAIN ACCEPTABILITY (test code=STN ACCEPTABLE) CABOT RINGS (test code=CAB) MORPHOLOGY COMMENT (test code=MOC) PLATELET ESTIMATE (test code=PLTEST) PLATELET MORPHOLOGY (test code=PLTMORPH) URINALYSIS [id number] 11:33:00 Test Item Value Reference Range Comments UA COLOR (test code=COLU) YELLOW YELLOW UA APPEARANCE (test code=APPU) CLEAR CLEAR UA GLUCOSE DIPSTICK (test code=DGLUU) NEGATIVE mg/dL NEGATIVE UA BILIRUBIN DIPSTICK (test code=BILU) NEGATIVE mg/dL NEGATIVE UA KETONE DIPSTICK (test code=KETU) NEGATIVE mg/dL NEGATIVE UA SPECIFIC GRAVITY (test code=SGU) 1.018 1.001-1.035 UA BLOOD DIPSTICK (test code=PRASHANTH) Negative mg/dL NEGATIVE UA PH DIPSTICK (test code=ROGERS) 7.5 5.0-8.0 UA PROTEIN DIPSTICK (test code=PROU) NEGATIVE mg/dL NEGATIVE UA UROBILINIOGEN DIPSTICK (test code=URO) Normal mg/dL NEGATIVE UA NITRITE DIPSTICK (test code=NORI) NEGATIVE NEGATIVE UA LEUKOCYTE ESTERASE W REFLEX (test NEGATIVE Dinesh/uL NEGATIVE code=LEUUR) UA WBC (test code=WBCU) 21-50 per HPF 0-5 UA RBC (test code=RBCU) 3-5 #/HPF 0-5 UA EPITHELIAL CELLS (test code=EPIU) FEW per HPF FEW UA BACTERIA (test code=BACU) NONE SEEN #/HPF NONE UA MUCUS (test code=MUCU) FEW #/LPF FEW Urine Source? Clean CatchURINALYSIS [id number] 11:32:00 Test Item Value Reference Range Comments UA COLOR (test code=COLU) YELLOW YELLOW UA APPEARANCE (test code=APPU) CLEAR CLEAR UA GLUCOSE DIPSTICK (test code=DGLUU) NEGATIVE mg/dL NEGATIVE UA BILIRUBIN DIPSTICK (test code=BILU) NEGATIVE mg/dL NEGATIVE UA KETONE DIPSTICK (test code=KETU) NEGATIVE mg/dL NEGATIVE UA SPECIFIC GRAVITY (test code=SGU) 1.018 1.001-1.035 UA BLOOD DIPSTICK (test code=PRASHANTH) Negative mg/dL NEGATIVE UA PH DIPSTICK (test code=ROGERS) 7.5 5.0-8.0 UA PROTEIN DIPSTICK (test code=PROU) NEGATIVE mg/dL NEGATIVE UA UROBILINIOGEN DIPSTICK (test code=URO) Normal mg/dL NEGATIVE UA NITRITE DIPSTICK (test code=NORI) NEGATIVE NEGATIVE UA LEUKOCYTE ESTERASE W REFLEX (test NEGATIVE Dinesh/uL NEGATIVE code=LEUUR) UA WBC (test code=WBCU) per HPF 0-5 UA RBC (test code=RBCU) per HPF 0-5 UA EPITHELIAL CELLS (test code=EPIU) per HPF Few UA BACTERIA (test code=BACU) per HPF NONE Urine Source? Clean Catch- XR CHEST 1 [id number] 09:51:00 FAX: Catherine Arreguin MD [phone] [place]: St: ADM Name: BROOKS FORTE [facility] : 1975 Age/S: 43/F [address] [facility] Unit#: [id number] Loc: [id number] [place] [address] Phys: Catherine Garcia MD Acct: [id number] Dis Date: Status: ADM IN PHONE #: [phone] Exam Date: 0948 FAX #: [phone] Reason: Leukocytosis EXAMS: CPT CODE: [id number] XR CHEST 1 V 80401 HISTORY: Leukocytosis. COMPARISON: April 04, 2010. No acute infiltrates, effusion or congestion is noted. The cardiac and mediastinal silhouette are within normal limits. IMPRESSION: No acute infiltrates, effusion or congestion. at 0951 Reported and signed by: Greg Ortiz M.D. CC : Catherine Garcia MD Technologist: Teressa Ashraf RT(R) Trnscrd Date/Time/By: ([id number]) : By: [email or web address] Orig Print D/T: S: 09/10/2018 (0964) PAGE 1 Signed ReportCBC W/AUTO [id number] 06:39:00 Test Item Value Reference Range Comments WHITE BLOOD CELL (test code=WBC) 16.3 K/mm3 4.5-12.5 RED BLOOD CELL (test code=RBC) 4.31 mill/mm3 3.7-5.2 HEMOGLOBIN (test code=HGB) 8.9 gram/dL 11.5-15.5 HEMATOCRIT (test code=HCT) 32.0 % 36.0-46.0 MEAN CELL VOLUME (test code=MCV) 74.2 fL 80-98 MEAN CELL HGB (test code=MCH) 20.6 picogram 27.0-33.0 MEAN CELL HGB CONCETRATION (test 27.8 gram/dL 33.0-36.0 code=MCHC) RED CELL DISTRIBUTION WIDTH (test 24.0 % 11.6-16.2 code=RDW) RED CELL DISTRIBUTION WIDTH SD (test 59.1 fL 37.0-51.0 code=RDW-SD) PLATELET COUNT (test code=PLT) 356 K/mm3 150-450 MEAN PLATELET VOLUME (test code=MPV) 9.2 fL 6.7-11.0 NEUTROPHIL % (test code=NT%) 75.0 % 39.0-69.0 IMMATURE GRANULOCYTE % (test code=IG%) 1.6 % 0.0-5.0 LYMPHOCYTE % (test code=LY%) 15.3 % 25.0-55.0 MONOCYTE % (test code=MO%) 5.2 % 0.0-10.0 EOSINOPHIL % (test code=EO%) 2.4 % 0.0-5.0 BASOPHIL % (test code=BA%) 0.5 % 0.0-1.0 NUCLEATED RBC % (test code=NRBC%) 0.0 % 0-0 NEUTROPHIL # (test code=NT#) 12.19 K/mm3 1.8-7.7 IMMATURE GRANULOCYTE # (test code=IG#) 0.26 x10 3/uL 0-0.03 LYMPHOCYTE # (test code=LY#) 2.49 K/mm3 1.0-5.0 MONOCYTE # (test code=MO#) 0.84 K/mm3 0-0.8 EOSINOPHIL # (test code=EO#) 0.39 K/mm3 0.0-0.5 BASOPHIL # (test code=BA#) 0.08 K/mm3 0.0-0.2 NUCLEATED RBC # (test code=NRBC#) 0.00 K/mm3 0.0-0.1 MANUAL DIFF REQUIRED (test code=MDIFF) NO, ONLY SCAN NEEDED DIFFERENTIAL [id number] 06:39:00 Test Item Value Reference Range Comments STAIN ACCEPTABILITY (test code=STN STAIN ACCEPTABLE ACCEPTABLE) HYPOCHROMIA (test code=HYPO) 1+ POIKILOCYTOSIS (test code=POIK) 2+ ANISOCYTOSIS (test code=ANISO) 2+ MICROCYTOSIS (test code=MICR) 2+ ELLIPTOCYTES (test code=ELL) 1+ PLATELET ESTIMATE (test code=PLTEST) ADEQUATE PLATELET MORPHOLOGY (test code=PLTMORPH) NORMAL CBC W/AUTO [id number] 06:16:00 Test Item Value Reference Range Comments WHITE BLOOD CELL (test code=WBC) 16.3 K/mm3 4.5-12.5 RED BLOOD CELL (test code=RBC) 4.31 mill/mm3 3.7-5.2 HEMOGLOBIN (test code=HGB) 8.9 gram/dL 11.5-15.5 HEMATOCRIT (test code=HCT) 32.0 % 36.0-46.0 MEAN CELL VOLUME (test code=MCV) 74.2 fL 80-98 MEAN CELL HGB (test code=MCH) 20.6 picogram 27.0-33.0 MEAN CELL HGB CONCETRATION (test 27.8 gram/dL 33.0-36.0 code=MCHC) RED CELL DISTRIBUTION WIDTH (test 24.0 % 11.6-16.2 code=RDW) RED CELL DISTRIBUTION WIDTH SD (test 59.1 fL 37.0-51.0 code=RDW-SD) PLATELET COUNT (test code=PLT) 356 K/mm3 150-450 MEAN PLATELET VOLUME (test code=MPV) 9.2 fL 6.7-11.0 NEUTROPHIL % (test code=NT%) 75.0 % 39.0-69.0 IMMATURE GRANULOCYTE % (test code=IG%) 1.6 % 0.0-5.0 LYMPHOCYTE % (test code=LY%) 15.3 % 25.0-55.0 MONOCYTE % (test code=MO%) 5.2 % 0.0-10.0 EOSINOPHIL % (test code=EO%) 2.4 % 0.0-5.0 BASOPHIL % (test code=BA%) 0.5 % 0.0-1.0 NUCLEATED RBC % (test code=NRBC%) 0.0 % 0-0 NEUTROPHIL # (test code=NT#) 12.19 K/mm3 1.8-7.7 IMMATURE GRANULOCYTE # (test code=IG#) 0.26 x10 3/uL 0-0.03 LYMPHOCYTE # (test code=LY#) 2.49 K/mm3 1.0-5.0 MONOCYTE # (test code=MO#) 0.84 K/mm3 0-0.8 EOSINOPHIL # (test code=EO#) 0.39 K/mm3 0.0-0.5 BASOPHIL # (test code=BA#) 0.08 K/mm3 0.0-0.2 NUCLEATED RBC # (test code=NRBC#) 0.00 K/mm3 0.0-0.1 MANUAL DIFF REQUIRED (test code=MDIFF) NO, ONLY SCAN NEEDED DIFFERENTIAL [id number] 06:16:00 Test Item Value Reference Range Comments STAIN ACCEPTABILITY (test code=STN ACCEPTABLE) CABOT RINGS (test code=CAB) MORPHOLOGY COMMENT (test code=MOC) PLATELET ESTIMATE (test code=PLTEST) PLATELET MORPHOLOGY (test code=PLTMORPH) CBC W/AUTO [id number] 06:16:00 Test Item Value Reference Range Comments WHITE BLOOD CELL (test code=WBC) 16.3 K/mm3 4.5-12.5 RED BLOOD CELL (test code=RBC) 4.31 mill/mm3 3.7-5.2 HEMOGLOBIN (test code=HGB) 8.9 gram/dL 11.5-15.5 HEMATOCRIT (test code=HCT) 32.0 % 36.0-46.0 MEAN CELL VOLUME (test code=MCV) 74.2 fL 80-98 MEAN CELL HGB (test code=MCH) 20.6 picogram 27.0-33.0 MEAN CELL HGB CONCETRATION (test 27.8 gram/dL 33.0-36.0 code=MCHC) RED CELL DISTRIBUTION WIDTH (test 24.0 % 11.6-16.2 code=RDW) RED CELL DISTRIBUTION WIDTH SD (test 59.1 fL 37.0-51.0 code=RDW-SD) PLATELET COUNT (test code=PLT) 356 K/mm3 150-450 MEAN PLATELET VOLUME (test code=MPV) 9.2 fL 6.7-11.0 NEUTROPHIL % (test code=NT%) 75.0 % 39.0-69.0 IMMATURE GRANULOCYTE % (test code=IG%) 1.6 % 0.0-5.0 LYMPHOCYTE % (test code=LY%) 15.3 % 25.0-55.0 MONOCYTE % (test code=MO%) 5.2 % 0.0-10.0 EOSINOPHIL % (test code=EO%) 2.4 % 0.0-5.0 BASOPHIL % (test code=BA%) 0.5 % 0.0-1.0 NUCLEATED RBC % (test code=NRBC%) 0.0 % 0-0 NEUTROPHIL # (test code=NT#) 12.19 K/mm3 1.8-7.7 IMMATURE GRANULOCYTE # (test code=IG#) 0.26 x10 3/uL 0-0.03 LYMPHOCYTE # (test code=LY#) 2.49 K/mm3 1.0-5.0 MONOCYTE # (test code=MO#) 0.84 K/mm3 0-0.8 EOSINOPHIL # (test code=EO#) 0.39 K/mm3 0.0-0.5 BASOPHIL # (test code=BA#) 0.08 K/mm3 0.0-0.2 NUCLEATED RBC # (test code=NRBC#) 0.00 K/mm3 0.0-0.1 MANUAL DIFF REQUIRED (test code=MDIFF) NO, ONLY SCAN NEEDED DIFFERENTIAL [id number] 06:16:00 Test Item Value Reference Range Comments STAIN ACCEPTABILITY (test code=STN ACCEPTABLE) MORPHOLOGY COMMENT (test code=MOC) PLATELET ESTIMATE (test code=PLTEST) PLATELET MORPHOLOGY (test code=PLTMORPH) CBC W/AUTO [id number] 06:16:00 Test Item Value Reference Range Comments WHITE BLOOD CELL (test code=WBC) 16.3 K/mm3 4.5-12.5 RED BLOOD CELL (test code=RBC) 4.31 mill/mm3 3.7-5.2 HEMOGLOBIN (test code=HGB) 8.9 gram/dL 11.5-15.5 HEMATOCRIT (test code=HCT) 32.0 % 36.0-46.0 MEAN CELL VOLUME (test code=MCV) 74.2 fL 80-98 MEAN CELL HGB (test code=MCH) 20.6 picogram 27.0-33.0 MEAN CELL HGB CONCETRATION (test 27.8 gram/dL 33.0-36.0 code=MCHC) RED CELL DISTRIBUTION WIDTH (test 24.0 % 11.6-16.2 code=RDW) RED CELL DISTRIBUTION WIDTH SD (test 59.1 fL 37.0-51.0 code=RDW-SD) PLATELET COUNT (test code=PLT) 356 K/mm3 150-450 MEAN PLATELET VOLUME (test code=MPV) 9.2 fL 6.7-11.0 NEUTROPHIL % (test code=NT%) 75.0 % 39.0-69.0 IMMATURE GRANULOCYTE % (test code=IG%) 1.6 % 0.0-5.0 LYMPHOCYTE % (test code=LY%) 15.3 % 25.0-55.0 MONOCYTE % (test code=MO%) 5.2 % 0.0-10.0 EOSINOPHIL % (test code=EO%) 2.4 % 0.0-5.0 BASOPHIL % (test code=BA%) 0.5 % 0.0-1.0 NUCLEATED RBC % (test code=NRBC%) 0.0 % 0-0 NEUTROPHIL # (test code=NT#) 12.19 K/mm3 1.8-7.7 IMMATURE GRANULOCYTE # (test code=IG#) 0.26 x10 3/uL 0-0.03 LYMPHOCYTE # (test code=LY#) 2.49 K/mm3 1.0-5.0 MONOCYTE # (test code=MO#) 0.84 K/mm3 0-0.8 EOSINOPHIL # (test code=EO#) 0.39 K/mm3 0.0-0.5 BASOPHIL # (test code=BA#) 0.08 K/mm3 0.0-0.2 NUCLEATED RBC # (test code=NRBC#) 0.00 K/mm3 0.0-0.1 MANUAL DIFF REQUIRED (test code=MDIFF) NO, ONLY SCAN NEEDED DIFFERENTIAL [id number] 06:16:00 Test Item Value Reference Range Comments STAIN ACCEPTABILITY (test code=STN ACCEPTABLE) MORPHOLOGY COMMENT (test code=MOC) PLATELET ESTIMATE (test code=PLTEST) PLATELET MORPHOLOGY (test code=PLTMORPH) CBC W/AUTO [id number] 06:16:00 Test Item Value Reference Range Comments WHITE BLOOD CELL (test code=WBC) 16.3 K/mm3 4.5-12.5 RED BLOOD CELL (test code=RBC) 4.31 mill/mm3 3.7-5.2 HEMOGLOBIN (test code=HGB) 8.9 gram/dL 11.5-15.5 HEMATOCRIT (test code=HCT) 32.0 % 36.0-46.0 MEAN CELL VOLUME (test code=MCV) 74.2 fL 80-98 MEAN CELL HGB (test code=MCH) 20.6 picogram 27.0-33.0 MEAN CELL HGB CONCETRATION (test 27.8 gram/dL 33.0-36.0 code=MCHC) RED CELL DISTRIBUTION WIDTH (test 24.0 % 11.6-16.2 code=RDW) RED CELL DISTRIBUTION WIDTH SD (test 59.1 fL 37.0-51.0 code=RDW-SD) PLATELET COUNT (test code=PLT) 356 K/mm3 150-450 MEAN PLATELET VOLUME (test code=MPV) 9.2 fL 6.7-11.0 NEUTROPHIL % (test code=NT%) 75.0 % 39.0-69.0 IMMATURE GRANULOCYTE % (test code=IG%) 1.6 % 0.0-5.0 LYMPHOCYTE % (test code=LY%) 15.3 % 25.0-55.0 MONOCYTE % (test code=MO%) 5.2 % 0.0-10.0 EOSINOPHIL % (test code=EO%) 2.4 % 0.0-5.0 BASOPHIL % (test code=BA%) 0.5 % 0.0-1.0 NUCLEATED RBC % (test code=NRBC%) 0.0 % 0-0 NEUTROPHIL # (test code=NT#) 12.19 K/mm3 1.8-7.7 IMMATURE GRANULOCYTE # (test code=IG#) 0.26 x10 3/uL 0-0.03 LYMPHOCYTE # (test code=LY#) 2.49 K/mm3 1.0-5.0 MONOCYTE # (test code=MO#) 0.84 K/mm3 0-0.8 EOSINOPHIL # (test code=EO#) 0.39 K/mm3 0.0-0.5 BASOPHIL # (test code=BA#) 0.08 K/mm3 0.0-0.2 NUCLEATED RBC # (test code=NRBC#) 0.00 K/mm3 0.0-0.1 MANUAL DIFF REQUIRED (test code=MDIFF) NO, ONLY SCAN NEEDED DIFFERENTIAL [id number] 06:16:00 Test Item Value Reference Range Comments STAIN ACCEPTABILITY (test code=STN ACCEPTABLE) CABOT RINGS (test code=CAB) MORPHOLOGY COMMENT (test code=MOC) PLATELET ESTIMATE (test code=PLTEST) PLATELET MORPHOLOGY (test code=PLTMORPH) CBC W/AUTO [id number] 11:46:00 Test Item Value Reference Range Comments WHITE BLOOD CELL (test code=WBC) 13.4 K/mm3 4.5-12.5 RED BLOOD CELL (test code=RBC) 4.29 mill/mm3 3.7-5.2 HEMOGLOBIN (test code=HGB) 8.8 gram/dL 11.5-15.5 HEMATOCRIT (test code=HCT) 31.2 % 36.0-46.0 MEAN CELL VOLUME (test code=MCV) 72.7 fL 80-98 MEAN CELL HGB (test code=MCH) 20.5 picogram 27.0-33.0 MEAN CELL HGB CONCETRATION (test 28.2 gram/dL 33.0-36.0 code=MCHC) RED CELL DISTRIBUTION WIDTH (test 23.3 % 11.6-16.2 code=RDW) RED CELL DISTRIBUTION WIDTH SD (test 57.6 fL 37.0-51.0 code=RDW-SD) PLATELET COUNT (test code=PLT) 349 K/mm3 150-450 MEAN PLATELET VOLUME (test code=MPV) 9.3 fL 6.7-11.0 NEUTROPHIL % (test code=NT%) 69.0 % 39.0-69.0 IMMATURE GRANULOCYTE % (test code=IG%) 0.9 % 0.0-5.0 LYMPHOCYTE % (test code=LY%) 21.6 % 25.0-55.0 MONOCYTE % (test code=MO%) 5.2 % 0.0-10.0 EOSINOPHIL % (test code=EO%) 2.6 % 0.0-5.0 BASOPHIL % (test code=BA%) 0.7 % 0.0-1.0 NUCLEATED RBC % (test code=NRBC%) 0.0 % 0-0 NEUTROPHIL # (test code=NT#) 9.23 K/mm3 1.8-7.7 IMMATURE GRANULOCYTE # (test code=IG#) 0.12 x10 3/uL 0-0.03 LYMPHOCYTE # (test code=LY#) 2.89 K/mm3 1.0-5.0 MONOCYTE # (test code=MO#) 0.70 K/mm3 0-0.8 EOSINOPHIL # (test code=EO#) 0.35 K/mm3 0.0-0.5 BASOPHIL # (test code=BA#) 0.09 K/mm3 0.0-0.2 NUCLEATED RBC # (test code=NRBC#) 0.00 K/mm3 0.0-0.1 MANUAL DIFF REQUIRED (test code=MDIFF) NO, ONLY SCAN NEEDED DIFFERENTIAL [id number] 11:46:00 Test Item Value Reference Range Comments STAIN ACCEPTABILITY (test code=STN STAIN ACCEPTABLE ACCEPTABLE) POLYCHROMASIA (test code=POLC) 1+ POIKILOCYTOSIS (test code=POIK) 2+ ANISOCYTOSIS (test code=ANISO) 2+ MICROCYTOSIS (test code=MICR) 2+ ELLIPTOCYTES (test code=ELL) 1+ ACANTHOCYTES (test code=ACAN) 1+ NONE PLATELET ESTIMATE (test code=PLTEST) ADEQUATE PLATELET MORPHOLOGY (test code=PLTMORPH) NORMAL CBC W/AUTO [id number] 11:03:00 Test Item Value Reference Range Comments WHITE BLOOD CELL (test code=WBC) 13.4 K/mm3 4.5-12.5 RED BLOOD CELL (test code=RBC) 4.29 mill/mm3 3.7-5.2 HEMOGLOBIN (test code=HGB) 8.8 gram/dL 11.5-15.5 HEMATOCRIT (test code=HCT) 31.2 % 36.0-46.0 MEAN CELL VOLUME (test code=MCV) 72.7 fL 80-98 MEAN CELL HGB (test code=MCH) 20.5 picogram 27.0-33.0 MEAN CELL HGB CONCETRATION (test 28.2 gram/dL 33.0-36.0 code=MCHC) RED CELL DISTRIBUTION WIDTH (test 23.3 % 11.6-16.2 code=RDW) RED CELL DISTRIBUTION WIDTH SD (test 57.6 fL 37.0-51.0 code=RDW-SD) PLATELET COUNT (test code=PLT) 349 K/mm3 150-450 MEAN PLATELET VOLUME (test code=MPV) 9.3 fL 6.7-11.0 NEUTROPHIL % (test code=NT%) 69.0 % 39.0-69.0 IMMATURE GRANULOCYTE % (test code=IG%) 0.9 % 0.0-5.0 LYMPHOCYTE % (test code=LY%) 21.6 % 25.0-55.0 MONOCYTE % (test code=MO%) 5.2 % 0.0-10.0 EOSINOPHIL % (test code=EO%) 2.6 % 0.0-5.0 BASOPHIL % (test code=BA%) 0.7 % 0.0-1.0 NUCLEATED RBC % (test code=NRBC%) 0.0 % 0-0 NEUTROPHIL # (test code=NT#) 9.23 K/mm3 1.8-7.7 IMMATURE GRANULOCYTE # (test code=IG#) 0.12 x10 3/uL 0-0.03 LYMPHOCYTE # (test code=LY#) 2.89 K/mm3 1.0-5.0 MONOCYTE # (test code=MO#) 0.70 K/mm3 0-0.8 EOSINOPHIL # (test code=EO#) 0.35 K/mm3 0.0-0.5 BASOPHIL # (test code=BA#) 0.09 K/mm3 0.0-0.2 NUCLEATED RBC # (test code=NRBC#) 0.00 K/mm3 0.0-0.1 MANUAL DIFF REQUIRED (test code=MDIFF) NO, ONLY SCAN NEEDED DIFFERENTIAL [id number] 11:03:00 Test Item Value Reference Range Comments STAIN ACCEPTABILITY (test code=STN ACCEPTABLE) CABOT RINGS (test code=CAB) MORPHOLOGY COMMENT (test code=MOC) PLATELET ESTIMATE (test code=PLTEST) PLATELET MORPHOLOGY (test code=PLTMORPH) CBC W/AUTO [id number] 11:03:00 Test Item Value Reference Range Comments WHITE BLOOD CELL (test code=WBC) 13.4 K/mm3 4.5-12.5 RED BLOOD CELL (test code=RBC) 4.29 mill/mm3 3.7-5.2 HEMOGLOBIN (test code=HGB) 8.8 gram/dL 11.5-15.5 HEMATOCRIT (test code=HCT) 31.2 % 36.0-46.0 MEAN CELL VOLUME (test code=MCV) 72.7 fL 80-98 MEAN CELL HGB (test code=MCH) 20.5 picogram 27.0-33.0 MEAN CELL HGB CONCETRATION (test 28.2 gram/dL 33.0-36.0 code=MCHC) RED CELL DISTRIBUTION WIDTH (test 23.3 % 11.6-16.2 code=RDW) RED CELL DISTRIBUTION WIDTH SD (test 57.6 fL 37.0-51.0 code=RDW-SD) PLATELET COUNT (test code=PLT) 349 K/mm3 150-450 MEAN PLATELET VOLUME (test code=MPV) 9.3 fL 6.7-11.0 NEUTROPHIL % (test code=NT%) 69.0 % 39.0-69.0 IMMATURE GRANULOCYTE % (test code=IG%) 0.9 % 0.0-5.0 LYMPHOCYTE % (test code=LY%) 21.6 % 25.0-55.0 MONOCYTE % (test code=MO%) 5.2 % 0.0-10.0 EOSINOPHIL % (test code=EO%) 2.6 % 0.0-5.0 BASOPHIL % (test code=BA%) 0.7 % 0.0-1.0 NUCLEATED RBC % (test code=NRBC%) 0.0 % 0-0 NEUTROPHIL # (test code=NT#) 9.23 K/mm3 1.8-7.7 IMMATURE GRANULOCYTE # (test code=IG#) 0.12 x10 3/uL 0-0.03 LYMPHOCYTE # (test code=LY#) 2.89 K/mm3 1.0-5.0 MONOCYTE # (test code=MO#) 0.70 K/mm3 0-0.8 EOSINOPHIL # (test code=EO#) 0.35 K/mm3 0.0-0.5 BASOPHIL # (test code=BA#) 0.09 K/mm3 0.0-0.2 NUCLEATED RBC # (test code=NRBC#) 0.00 K/mm3 0.0-0.1 MANUAL DIFF REQUIRED (test code=MDIFF) NO, ONLY SCAN NEEDED DIFFERENTIAL [id number] 11:03:00 Test Item Value Reference Range Comments STAIN ACCEPTABILITY (test code=STN ACCEPTABLE) CABOT RINGS (test code=CAB) MORPHOLOGY COMMENT (test code=MOC) PLATELET ESTIMATE (test code=PLTEST) PLATELET MORPHOLOGY (test code=PLTMORPH) CBC W/AUTO [id number] 11:03:00 Test Item Value Reference Range Comments WHITE BLOOD CELL (test code=WBC) 13.4 K/mm3 4.5-12.5 RED BLOOD CELL (test code=RBC) 4.29 mill/mm3 3.7-5.2 HEMOGLOBIN (test code=HGB) 8.8 gram/dL 11.5-15.5 HEMATOCRIT (test code=HCT) 31.2 % 36.0-46.0 MEAN CELL VOLUME (test code=MCV) 72.7 fL 80-98 MEAN CELL HGB (test code=MCH) 20.5 picogram 27.0-33.0 MEAN CELL HGB CONCETRATION (test 28.2 gram/dL 33.0-36.0 code=MCHC) RED CELL DISTRIBUTION WIDTH (test 23.3 % 11.6-16.2 code=RDW) RED CELL DISTRIBUTION WIDTH SD (test 57.6 fL 37.0-51.0 code=RDW-SD) PLATELET COUNT (test code=PLT) 349 K/mm3 150-450 MEAN PLATELET VOLUME (test code=MPV) 9.3 fL 6.7-11.0 NEUTROPHIL % (test code=NT%) 69.0 % 39.0-69.0 IMMATURE GRANULOCYTE % (test code=IG%) 0.9 % 0.0-5.0 LYMPHOCYTE % (test code=LY%) 21.6 % 25.0-55.0 MONOCYTE % (test code=MO%) 5.2 % 0.0-10.0 EOSINOPHIL % (test code=EO%) 2.6 % 0.0-5.0 BASOPHIL % (test code=BA%) 0.7 % 0.0-1.0 NUCLEATED RBC % (test code=NRBC%) 0.0 % 0-0 NEUTROPHIL # (test code=NT#) 9.23 K/mm3 1.8-7.7 IMMATURE GRANULOCYTE # (test code=IG#) 0.12 x10 3/uL 0-0.03 LYMPHOCYTE # (test code=LY#) 2.89 K/mm3 1.0-5.0 MONOCYTE # (test code=MO#) 0.70 K/mm3 0-0.8 EOSINOPHIL # (test code=EO#) 0.35 K/mm3 0.0-0.5 BASOPHIL # (test code=BA#) 0.09 K/mm3 0.0-0.2 NUCLEATED RBC # (test code=NRBC#) 0.00 K/mm3 0.0-0.1 MANUAL DIFF REQUIRED (test code=MDIFF) NO, ONLY SCAN NEEDED DIFFERENTIAL [id number] 11:03:00 Test Item Value Reference Range Comments STAIN ACCEPTABILITY (test code=STN ACCEPTABLE) MORPHOLOGY COMMENT (test code=MOC) PLATELET ESTIMATE (test code=PLTEST) PLATELET MORPHOLOGY (test code=PLTMORPH) CBC W/AUTO [id number] 11:03:00 Test Item Value Reference Range Comments WHITE BLOOD CELL (test code=WBC) 13.4 K/mm3 4.5-12.5 RED BLOOD CELL (test code=RBC) 4.29 mill/mm3 3.7-5.2 HEMOGLOBIN (test code=HGB) 8.8 gram/dL 11.5-15.5 HEMATOCRIT (test code=HCT) 31.2 % 36.0-46.0 MEAN CELL VOLUME (test code=MCV) 72.7 fL 80-98 MEAN CELL HGB (test code=MCH) 20.5 picogram 27.0-33.0 MEAN CELL HGB CONCETRATION (test 28.2 gram/dL 33.0-36.0 code=MCHC) RED CELL DISTRIBUTION WIDTH (test 23.3 % 11.6-16.2 code=RDW) RED CELL DISTRIBUTION WIDTH SD (test 57.6 fL 37.0-51.0 code=RDW-SD) PLATELET COUNT (test code=PLT) 349 K/mm3 150-450 MEAN PLATELET VOLUME (test code=MPV) 9.3 fL 6.7-11.0 NEUTROPHIL % (test code=NT%) 69.0 % 39.0-69.0 IMMATURE GRANULOCYTE % (test code=IG%) 0.9 % 0.0-5.0 LYMPHOCYTE % (test code=LY%) 21.6 % 25.0-55.0 MONOCYTE % (test code=MO%) 5.2 % 0.0-10.0 EOSINOPHIL % (test code=EO%) 2.6 % 0.0-5.0 BASOPHIL % (test code=BA%) 0.7 % 0.0-1.0 NUCLEATED RBC % (test code=NRBC%) 0.0 % 0-0 NEUTROPHIL # (test code=NT#) 9.23 K/mm3 1.8-7.7 IMMATURE GRANULOCYTE # (test code=IG#) 0.12 x10 3/uL 0-0.03 LYMPHOCYTE # (test code=LY#) 2.89 K/mm3 1.0-5.0 MONOCYTE # (test code=MO#) 0.70 K/mm3 0-0.8 EOSINOPHIL # (test code=EO#) 0.35 K/mm3 0.0-0.5 BASOPHIL # (test code=BA#) 0.09 K/mm3 0.0-0.2 NUCLEATED RBC # (test code=NRBC#) 0.00 K/mm3 0.0-0.1 MANUAL DIFF REQUIRED (test code=MDIFF) NO, ONLY SCAN NEEDED DIFFERENTIAL [id number] 11:03:00 Test Item Value Reference Range Comments STAIN ACCEPTABILITY (test code=STN ACCEPTABLE) CABOT RINGS (test code=CAB) MORPHOLOGY COMMENT (test code=MOC) PLATELET ESTIMATE (test code=PLTEST) PLATELET MORPHOLOGY (test code=PLTMORPH) - US PELVIS [id number] 20:39:00 Name: BROOKS FORTE [facility] : 1975 Age/S: 43 / F [address] [facility] Unit #: [id number] Loc: [place] [address] Phys: Catherine Garcia MD Acct: [id number] Dis Date: Status : ADM IN PHONE #: [phone] Exam Date: 09/07/20182008 FAX #: [phone] Reason: Menorrhagia,anemia EXAMS: CPTCODE: [id number] US PELVIS COMPLETE [id number] REASON FOR EXAM: Menorrhagia,anemia EXAM ORDER DATE: 09/07/2018 7:34 PM Attending M.D.: Catherine Garcia MD PROCEDURE: - US PELVIS COMPLETE Technique: Grayscale images of the uterus and ovaries were obtained utilizing A transabdominal and transvaginal approach. Color Doppler and spectral Doppler images of the ovaries were also obtained on transvaginal images. Comparison study: CT of the abdomen and pelvis June 06, 2017 FINDINGS: Uterus: size: 9.8 x 6.6 x 8.6 cm using transabdominal measurements echogenicity/masses: Heterogenous echotexture. There is a subserosal fibroid in the right lateral wall of the uterus that measures up to 4.9 x 5.1 x 4.2 cm in size and demonstrates degenerative changes. There is also a myometrial/submucosal fibroid in the left lateral wall that measures 3.5 x 3.0 x 3.6 cm in size. endometrium: Not clearly visualized due to fibroids Right ovary: size: 4.0 x 4.1 x 1.8 cm cysts/masses: Simple cyst measuring 1.7 x 2.4 x 1.1 cm Doppler findings: Normal arterial and venous waveforms. adnexal masses: None Left ovary size: 5.8 x 4.2 x 2.7 cm cysts/masses: There is a cyst measuring 2.5 x 3.0 x 3.0 cm with linear internal echogenicities possibly representing prior hemorrhage. There is also a simple cyst measuring 2.7 x 2.5 x 2.1 cm is also present. Doppler findings: Normal arterial and venous waveforms. adnexal masses: None No fluid seen in the cul-de-sac. IMPRESSION: Fibroid uterus. PAGE 1 Signed Report (CONTINUED) Name: BROOKS FORTE [facility] : 1975 Age/S: 43 / F [address] [facility] Unit #: [id number] Loc: [place] [address] Phys: Catherine Garcia MD Acct: [id number] Dis Date: Status: ADM IN PHONE #: [phone] Exam Date: 09/07/20182008 FAX #: [phone] Reason: Menorrhagia,anemia EXAMS: CPT CODE: [id number] US PELVIS COMPLETE [id number] < Continued> Simple cyst in the bilateral ovaries. These do not require rather evaluation. Left ovarian cyst with linear echogenicities which likely represent hemorrhagic products. Follow-up ultrasound in 6-12 weeks is recommended to assess for resolution. at 2038 Reported and signed by: Rojelio Mendiola MD CC: Catherine Garcia MD Technologist: Juan Crowley [facility] Date/Time: 2018 (2038) [email or web address] Orig Print D/T: S: 09/07/2018 (2041 ) Probe: PAGE 2 Signed ReportCBC W/AUTO [id number] 10:27:00 Test Item Value Reference Range Comments WHITE BLOOD CELL (test 10.8 K/mm3 4.5-12.5 code=WBC) RED BLOOD CELL (test 4.02 mill/mm3 3.7-5.2 code=RBC) HEMOGLOBIN (test code=HGB) 8.2 gram/dL 11.5-15.5 RESULT VERIFIED BY REPEAT ANALYSIS HEMATOCRIT (test code=HCT) 28.7 % 36.0-46.0 MEAN CELL VOLUME (test 71.4 fL 80-98 code=MCV) MEAN CELL HGB (test 20.4 picogram 27.0-33.0 code=MCH) MEAN CELL HGB CONCETRATION 28.6 gram/dL 33.0-36.0 (test code=MCHC) RED CELL DISTRIBUTION 22.3 % 11.6-16.2 WIDTH (test code=RDW) RED CELL DISTRIBUTION 56.6 fL 37.0-51.0 WIDTH SD (test code=RDW-SD) PLATELET COUNT (test 349 K/mm3 150-450 code=PLT) MEAN PLATELET VOLUME (test 9.4 fL 6.7-11.0 code=MPV) NEUTROPHIL % (test 75.5 % 39.0-69.0 code=NT%) IMMATURE GRANULOCYTE % 0.5 % 0.0-5.0 (test code=IG%) LYMPHOCYTE % (test 14.3 % 25.0-55.0 code=LY%) MONOCYTE % (test code=MO%) 7.4 % 0.0-10.0 EOSINOPHIL % (test 1.9 % 0.0-5.0 code=EO%) BASOPHIL % (test code=BA%) 0.4 % 0.0-1.0 NUCLEATED RBC % (test 0.0 % 0-0 code=NRBC%) NEUTROPHIL # (test 8.18 K/mm3 1.8-7.7 code=NT#) IMMATURE GRANULOCYTE # 0.05 x10 3/uL 0-0.03 (test code=IG#) LYMPHOCYTE # (test 1.55 K/mm3 1.0-5.0 code=LY#) MONOCYTE # (test code=MO#) 0.80 K/mm3 0-0.8 EOSINOPHIL # (test 0.21 K/mm3 0.0-0.5 code=EO#) BASOPHIL # (test code=BA#) 0.04 K/mm3 0.0-0.2 NUCLEATED RBC # (test 0.00 K/mm3 0.0-0.1 code=NRBC#) MANUAL DIFF REQUIRED (test NO, ONLY SCAN NEEDED code=MDIFF) DIFFERENTIAL [id number] 10:27:00 Test Item Value Reference Range Comments STAIN ACCEPTABILITY (test code=STN STAIN ACCEPTABLE ACCEPTABLE) POIKILOCYTOSIS (test code=POIK) 2+ ANISOCYTOSIS (test code=ANISO) 2+ MICROCYTOSIS (test code=MICR) 2+ PLATELET ESTIMATE (test code=PLTEST) ADEQUATE PLATELET MORPHOLOGY (test code=PLTMORPH) NORMAL CBC W/AUTO [id number] 10:02:00 Test Item Value Reference Range Comments WHITE BLOOD CELL (test 10.8 K/mm3 4.5-12.5 code=WBC) RED BLOOD CELL (test 4.02 mill/mm3 3.7-5.2 code=RBC) HEMOGLOBIN (test code=HGB) 8.2 gram/dL 11.5-15.5 RESULT VERIFIED BY REPEAT ANALYSIS HEMATOCRIT (test code=HCT) 28.7 % 36.0-46.0 MEAN CELL VOLUME (test 71.4 fL 80-98 code=MCV) MEAN CELL HGB (test 20.4 picogram 27.0-33.0 code=MCH) MEAN CELL HGB CONCETRATION 28.6 gram/dL 33.0-36.0 (test code=MCHC) RED CELL DISTRIBUTION 22.3 % 11.6-16.2 WIDTH (test code=RDW) RED CELL DISTRIBUTION 56.6 fL 37.0-51.0 WIDTH SD (test code=RDW-SD) PLATELET COUNT (test 349 K/mm3 150-450 code=PLT) MEAN PLATELET VOLUME (test 9.4 fL 6.7-11.0 code=MPV) NEUTROPHIL % (test 75.5 % 39.0-69.0 code=NT%) IMMATURE GRANULOCYTE % 0.5 % 0.0-5.0 (test code=IG%) LYMPHOCYTE % (test 14.3 % 25.0-55.0 code=LY%) MONOCYTE % (test code=MO%) 7.4 % 0.0-10.0 EOSINOPHIL % (test 1.9 % 0.0-5.0 code=EO%) BASOPHIL % (test code=BA%) 0.4 % 0.0-1.0 NUCLEATED RBC % (test 0.0 % 0-0 code=NRBC%) NEUTROPHIL # (test 8.18 K/mm3 1.8-7.7 code=NT#) IMMATURE GRANULOCYTE # 0.05 x10 3/uL 0-0.03 (test code=IG#) LYMPHOCYTE # (test 1.55 K/mm3 1.0-5.0 code=LY#) MONOCYTE # (test code=MO#) 0.80 K/mm3 0-0.8 EOSINOPHIL # (test 0.21 K/mm3 0.0-0.5 code=EO#) BASOPHIL # (test code=BA#) 0.04 K/mm3 0.0-0.2 NUCLEATED RBC # (test 0.00 K/mm3 0.0-0.1 code=NRBC#) MANUAL DIFF REQUIRED (test NO, ONLY SCAN NEEDED code=MDIFF) DIFFERENTIAL [id number] 10:02:00 Test Item Value Reference Range Comments STAIN ACCEPTABILITY (test code=STN ACCEPTABLE) MORPHOLOGY COMMENT (test code=MOC) PLATELET ESTIMATE (test code=PLTEST) PLATELET MORPHOLOGY (test code=PLTMORPH) CBC W/AUTO [id number] 10:01:00 Test Item Value Reference Range Comments WHITE BLOOD CELL (test 10.8 K/mm3 4.5-12.5 code=WBC) RED BLOOD CELL (test 4.02 mill/mm3 3.7-5.2 code=RBC) HEMOGLOBIN (test code=HGB) 8.2 gram/dL 11.5-15.5 RESULT VERIFIED BY REPEAT ANALYSIS HEMATOCRIT (test code=HCT) 28.7 % 36.0-46.0 MEAN CELL VOLUME (test 71.4 fL 80-98 code=MCV) MEAN CELL HGB (test 20.4 picogram 27.0-33.0 code=MCH) MEAN CELL HGB CONCETRATION 28.6 gram/dL 33.0-36.0 (test code=MCHC) RED CELL DISTRIBUTION 22.3 % 11.6-16.2 WIDTH (test code=RDW) RED CELL DISTRIBUTION 56.6 fL 37.0-51.0 WIDTH SD (test code=RDW-SD) PLATELET COUNT (test 349 K/mm3 150-450 code=PLT) MEAN PLATELET VOLUME (test 9.4 fL 6.7-11.0 code=MPV) NEUTROPHIL % (test 75.5 % 39.0-69.0 code=NT%) IMMATURE GRANULOCYTE % 0.5 % 0.0-5.0 (test code=IG%) LYMPHOCYTE % (test 14.3 % 25.0-55.0 code=LY%) MONOCYTE % (test code=MO%) 7.4 % 0.0-10.0 EOSINOPHIL % (test 1.9 % 0.0-5.0 code=EO%) BASOPHIL % (test code=BA%) 0.4 % 0.0-1.0 NUCLEATED RBC % (test 0.0 % 0-0 code=NRBC%) NEUTROPHIL # (test 8.18 K/mm3 1.8-7.7 code=NT#) IMMATURE GRANULOCYTE # 0.05 x10 3/uL 0-0.03 (test code=IG#) LYMPHOCYTE # (test 1.55 K/mm3 1.0-5.0 code=LY#) MONOCYTE # (test code=MO#) 0.80 K/mm3 0-0.8 EOSINOPHIL # (test 0.21 K/mm3 0.0-0.5 code=EO#) BASOPHIL # (test code=BA#) 0.04 K/mm3 0.0-0.2 NUCLEATED RBC # (test 0.00 K/mm3 0.0-0.1 code=NRBC#) MANUAL DIFF REQUIRED (test NO, ONLY SCAN NEEDED code=MDIFF) DIFFERENTIAL [id number] 10:01:00 Test Item Value Reference Range Comments STAIN ACCEPTABILITY (test code=STN ACCEPTABLE) CABOT RINGS (test code=CAB) MORPHOLOGY COMMENT (test code=MOC) PLATELET ESTIMATE (test code=PLTEST) PLATELET MORPHOLOGY (test code=PLTMORPH) CBC W/AUTO [id number] 10:01:00 Test Item Value Reference Range Comments WHITE BLOOD CELL (test 10.8 K/mm3 4.5-12.5 code=WBC) RED BLOOD CELL (test 4.02 mill/mm3 3.7-5.2 code=RBC) HEMOGLOBIN (test code=HGB) 8.2 gram/dL 11.5-15.5 RESULT VERIFIED BY REPEAT ANALYSIS HEMATOCRIT (test code=HCT) 28.7 % 36.0-46.0 MEAN CELL VOLUME (test 71.4 fL 80-98 code=MCV) MEAN CELL HGB (test 20.4 picogram 27.0-33.0 code=MCH) MEAN CELL HGB CONCETRATION 28.6 gram/dL 33.0-36.0 (test code=MCHC) RED CELL DISTRIBUTION 22.3 % 11.6-16.2 WIDTH (test code=RDW) RED CELL DISTRIBUTION 56.6 fL 37.0-51.0 WIDTH SD (test code=RDW-SD) PLATELET COUNT (test 349 K/mm3 150-450 code=PLT) MEAN PLATELET VOLUME (test 9.4 fL 6.7-11.0 code=MPV) NEUTROPHIL % (test 75.5 % 39.0-69.0 code=NT%) IMMATURE GRANULOCYTE % 0.5 % 0.0-5.0 (test code=IG%) LYMPHOCYTE % (test 14.3 % 25.0-55.0 code=LY%) MONOCYTE % (test code=MO%) 7.4 % 0.0-10.0 EOSINOPHIL % (test 1.9 % 0.0-5.0 code=EO%) BASOPHIL % (test code=BA%) 0.4 % 0.0-1.0 NUCLEATED RBC % (test 0.0 % 0-0 code=NRBC%) NEUTROPHIL # (test 8.18 K/mm3 1.8-7.7 code=NT#) IMMATURE GRANULOCYTE # 0.05 x10 3/uL 0-0.03 (test code=IG#) LYMPHOCYTE # (test 1.55 K/mm3 1.0-5.0 code=LY#) MONOCYTE # (test code=MO#) 0.80 K/mm3 0-0.8 EOSINOPHIL # (test 0.21 K/mm3 0.0-0.5 code=EO#) BASOPHIL # (test code=BA#) 0.04 K/mm3 0.0-0.2 NUCLEATED RBC # (test 0.00 K/mm3 0.0-0.1 code=NRBC#) MANUAL DIFF REQUIRED (test NO, ONLY SCAN NEEDED code=MDIFF) DIFFERENTIAL [id number] 10:01:00 Test Item Value Reference Range Comments STAIN ACCEPTABILITY (test code=STN ACCEPTABLE) MORPHOLOGY COMMENT (test code=MOC) PLATELET ESTIMATE (test code=PLTEST) PLATELET MORPHOLOGY (test code=PLTMORPH) CBC W/AUTO [id number] 10:01:00 Test Item Value Reference Range Comments WHITE BLOOD CELL (test 10.8 K/mm3 4.5-12.5 code=WBC) RED BLOOD CELL (test 4.02 mill/mm3 3.7-5.2 code=RBC) HEMOGLOBIN (test code=HGB) 8.2 gram/dL 11.5-15.5 RESULT VERIFIED BY REPEAT ANALYSIS HEMATOCRIT (test code=HCT) 28.7 % 36.0-46.0 MEAN CELL VOLUME (test 71.4 fL 80-98 code=MCV) MEAN CELL HGB (test 20.4 picogram 27.0-33.0 code=MCH) MEAN CELL HGB CONCETRATION 28.6 gram/dL 33.0-36.0 (test code=MCHC) RED CELL DISTRIBUTION 22.3 % 11.6-16.2 WIDTH (test code=RDW) RED CELL DISTRIBUTION 56.6 fL 37.0-51.0 WIDTH SD (test code=RDW-SD) PLATELET COUNT (test 349 K/mm3 150-450 code=PLT) MEAN PLATELET VOLUME (test 9.4 fL 6.7-11.0 code=MPV) NEUTROPHIL % (test 75.5 % 39.0-69.0 code=NT%) IMMATURE GRANULOCYTE % 0.5 % 0.0-5.0 (test code=IG%) LYMPHOCYTE % (test 14.3 % 25.0-55.0 code=LY%) MONOCYTE % (test code=MO%) 7.4 % 0.0-10.0 EOSINOPHIL % (test 1.9 % 0.0-5.0 code=EO%) BASOPHIL % (test code=BA%) 0.4 % 0.0-1.0 NUCLEATED RBC % (test 0.0 % 0-0 code=NRBC%) NEUTROPHIL # (test 8.18 K/mm3 1.8-7.7 code=NT#) IMMATURE GRANULOCYTE # 0.05 x10 3/uL 0-0.03 (test code=IG#) LYMPHOCYTE # (test 1.55 K/mm3 1.0-5.0 code=LY#) MONOCYTE # (test code=MO#) 0.80 K/mm3 0-0.8 EOSINOPHIL # (test 0.21 K/mm3 0.0-0.5 code=EO#) BASOPHIL # (test code=BA#) 0.04 K/mm3 0.0-0.2 NUCLEATED RBC # (test 0.00 K/mm3 0.0-0.1 code=NRBC#) MANUAL DIFF REQUIRED (test NO, ONLY SCAN NEEDED code=MDIFF) DIFFERENTIAL [id number] 10:01:00 Test Item Value Reference Range Comments STAIN ACCEPTABILITY (test code=STN ACCEPTABLE) CABOT RINGS (test code=CAB) MORPHOLOGY COMMENT (test code=MOC) PLATELET ESTIMATE (test code=PLTEST) PLATELET MORPHOLOGY (test code=PLTMORPH) CBC W/AUTO [id number] 02:43:00 Test Item Value Reference Range Comments WHITE BLOOD CELL (test code=WBC) 8.9 K/mm3 4.5-12.5 RED BLOOD CELL (test code=RBC) 3.41 mill/mm3 3.7-5.2 HEMOGLOBIN (test code=HGB) 6.2 gram/dL 11.5-15.5 HEMATOCRIT (test code=HCT) 23.3 % 36.0-46.0 MEAN CELL VOLUME (test code=MCV) 68.3 fL 80-98 MEAN CELL HGB (test code=MCH) 18.2 picogram 27.0-33.0 MEAN CELL HGB CONCETRATION (test 26.6 gram/dL 33.0-36.0 code=MCHC) RED CELL DISTRIBUTION WIDTH (test 20.4 % 11.6-16.2 code=RDW) RED CELL DISTRIBUTION WIDTH SD (test 48.3 fL 37.0-51.0 code=RDW-SD) PLATELET COUNT (test code=PLT) 359 K/mm3 150-450 MEAN PLATELET VOLUME (test code=MPV) 9.7 fL 6.7-11.0 NEUTROPHIL % (test code=NT%) 57.8 % 39.0-69.0 IMMATURE GRANULOCYTE % (test code=IG%) 0.3 % 0.0-5.0 LYMPHOCYTE % (test code=LY%) 31.2 % 25.0-55.0 MONOCYTE % (test code=MO%) 6.4 % 0.0-10.0 EOSINOPHIL % (test code=EO%) 3.8 % 0.0-5.0 BASOPHIL % (test code=BA%) 0.5 % 0.0-1.0 NUCLEATED RBC % (test code=NRBC%) 0.0 % 0-0 NEUTROPHIL # (test code=NT#) 5.13 K/mm3 1.8-7.7 IMMATURE GRANULOCYTE # (test code=IG#) 0.03 x10 3/uL 0-0.03 LYMPHOCYTE # (test code=LY#) 2.77 K/mm3 1.0-5.0 MONOCYTE # (test code=MO#) 0.57 K/mm3 0-0.8 EOSINOPHIL # (test code=EO#) 0.34 K/mm3 0.0-0.5 BASOPHIL # (test code=BA#) 0.04 K/mm3 0.0-0.2 NUCLEATED RBC # (test code=NRBC#) 0.00 K/mm3 0.0-0.1 MANUAL DIFF REQUIRED (test code=MDIFF) NO, ONLY SCAN NEEDED DIFFERENTIAL [id number] 02:43:00 Test Item Value Reference Range Comments STAIN ACCEPTABILITY (test code=STN STAIN ACCEPTABLE ACCEPTABLE) POLYCHROMASIA (test code=POLC) 1+ HYPOCHROMIA (test code=HYPO) 2+ POIKILOCYTOSIS (test code=POIK) 1+ ANISOCYTOSIS (test code=ANISO) 3+ MICROCYTOSIS (test code=MICR) 3+ ELLIPTOCYTES (test code=ELL) 1+ PLATELET ESTIMATE (test code=PLTEST) ADEQUATE PLATELET MORPHOLOGY (test code=PLTMORPH) NORMAL COMPREHENSIVE METABOLIC [id number] 02:29:00 Test Item Value Reference Range Comments SODIUM (test code=NA) 142 mmol/L 136-145 POTASSIUM (test code=K) 4.1 mmol/L 3.5-5.1 CHLORIDE (test code=CL) 110.0 mmol/L 98-107 CARBON DIOXIDE (test 27.0 mmol/L 21-32 code=CO2) ANION GAP (test code=GAP) 9.1 10-20 GLUCOSE (test code=GLU) 120 mg/dL 74-106 BLOOD UREA NITROGEN (test 16 mg/dL 7-18 code=BUN) GLOMERULAR FILTRATION RATE > 60 mL/min >=60 Estimated GFR by using (test code=GFR) Modified MDRD formula.Chronic kidney disease is defined as either kidney damageor GFR <60 mL/min/1.73 m2 for >3 months. CREATININE (test code=CREAT) 0.70 mg/dL 0.55-1.02 Note change in reference range due to change in reagent. BUN/CREATININE RATIO (test 22.9 10-20 code=BUN/CREA) TOTAL PROTEIN (test 6.4 gram/dL 6.4-8.2 code=PROT) ALBUMIN (test code=ALB) 3.4 g/dL 3.4-5.0 GLOBULIN (test code=GLOB) 3.0 gram/dL 2.7-4.2 ALBUMIN/GLOBULIN RATIO (test 1.1 0.75-1.50 code=A/G) CALCIUM (test code=CA) 8.2 mg/dL 8.5-10.1 BILIRUBIN TOTAL (test 0.20 mg/dL 0.0-1.0 code=BILT) SGOT/AST (test code=AST) 5 IUnit/L 15-37 SGPT/ALT (test code=ALT) 18 IUnit/L 12-78 ALKALINE PHOSPHATASE TOTAL 50 IUnit/L 45-117 Note change in reference (test code=ALKP) range due to change in reagent. THYROID STIMULATING [id number] 02:29:00 Test Item Value Reference Range Comments THYROID STIMULATING HORMONE 1.140 uIU/mL 0.36-3.74 TSH REFERENCE RANGES: (test code=TSH) EUTHYROID: 0.35 - 4.3 mIU/mL HYPO : > 5.5 mIU/mL HYPER : < 0.35 mIU/mL COMPREHENSIVE METABOLIC [id number] 02:09:00 Test Item Value Reference Range Comments SODIUM (test code=NA) 142 mmol/L 136-145 POTASSIUM (test code=K) 4.1 mmol/L 3.5-5.1 CHLORIDE (test code=CL) 110.0 mmol/L 98-107 CARBON DIOXIDE (test code=CO2) mmol/L 21-32 ANION GAP (test code=GAP) 10-20 GLUCOSE (test code=GLU) mg/dL 74-106 BLOOD UREA NITROGEN (test code=BUN) mg/dL 7-18 GLOMERULAR FILTRATION RATE (test code=GFR) mL/min >=60 CREATININE (test code=CREAT) mg/dL 0.55-1.02 BUN/CREATININE RATIO (test code=BUN/CREA) 10-20 TOTAL PROTEIN (test code=PROT) gram/dL 6.4-8.2 ALBUMIN (test code=ALB) g/dL 3.4-5.0 GLOBULIN (test code=GLOB) gram/dL 2.7-4.2 ALBUMIN/GLOBULIN RATIO (test code=A/G) 0.75-1.50 CALCIUM (test code=CA) mg/dL 8.5-10.1 BILIRUBIN TOTAL (test code=BILT) mg/dL 0.0-1.0 SGOT/AST (test code=AST) IUnit/L 15-37 SGPT/ALT (test code=ALT) IUnit/L 12-78 ALKALINE PHOSPHATASE TOTAL (test code=ALKP) IUnit/L 45-117 THYROID STIMULATING [id number] 02:09:00 Test Item Value Reference Range Comments THYROID STIMULATING HORMONE (test code=TSH) uIU/mL 0.36-3.74 CBC W/AUTO [id number] 02:02:00 Test Item Value Reference Range Comments WHITE BLOOD CELL (test code=WBC) 8.9 K/mm3 4.5-12.5 RED BLOOD CELL (test code=RBC) 3.41 mill/mm3 3.7-5.2 HEMOGLOBIN (test code=HGB) 6.2 gram/dL 11.5-15.5 HEMATOCRIT (test code=HCT) 23.3 % 36.0-46.0 MEAN CELL VOLUME (test code=MCV) 68.3 fL 80-98 MEAN CELL HGB (test code=MCH) 18.2 picogram 27.0-33.0 MEAN CELL HGB CONCETRATION (test 26.6 gram/dL 33.0-36.0 code=MCHC) RED CELL DISTRIBUTION WIDTH (test 20.4 % 11.6-16.2 code=RDW) RED CELL DISTRIBUTION WIDTH SD (test 48.3 fL 37.0-51.0 code=RDW-SD) PLATELET COUNT (test code=PLT) 359 K/mm3 150-450 MEAN PLATELET VOLUME (test code=MPV) 9.7 fL 6.7-11.0 NEUTROPHIL % (test code=NT%) 57.8 % 39.0-69.0 IMMATURE GRANULOCYTE % (test code=IG%) 0.3 % 0.0-5.0 LYMPHOCYTE % (test code=LY%) 31.2 % 25.0-55.0 MONOCYTE % (test code=MO%) 6.4 % 0.0-10.0 EOSINOPHIL % (test code=EO%) 3.8 % 0.0-5.0 BASOPHIL % (test code=BA%) 0.5 % 0.0-1.0 NUCLEATED RBC % (test code=NRBC%) 0.0 % 0-0 NEUTROPHIL # (test code=NT#) 5.13 K/mm3 1.8-7.7 IMMATURE GRANULOCYTE # (test code=IG#) 0.03 x10 3/uL 0-0.03 LYMPHOCYTE # (test code=LY#) 2.77 K/mm3 1.0-5.0 MONOCYTE # (test code=MO#) 0.57 K/mm3 0-0.8 EOSINOPHIL # (test code=EO#) 0.34 K/mm3 0.0-0.5 BASOPHIL # (test code=BA#) 0.04 K/mm3 0.0-0.2 NUCLEATED RBC # (test code=NRBC#) 0.00 K/mm3 0.0-0.1 MANUAL DIFF REQUIRED (test code=MDIFF) NO, ONLY SCAN NEEDED DIFFERENTIAL [id number] 02:02:00 Test Item Value Reference Range Comments STAIN ACCEPTABILITY (test code=STN ACCEPTABLE) CABOT RINGS (test code=CAB) MORPHOLOGY COMMENT (test code=MOC) PLATELET ESTIMATE (test code=PLTEST) PLATELET MORPHOLOGY (test code=PLTMORPH) CBC W/AUTO [id number] 02:02:00 Test Item Value Reference Range Comments WHITE BLOOD CELL (test code=WBC) 8.9 K/mm3 4.5-12.5 RED BLOOD CELL (test code=RBC) 3.41 mill/mm3 3.7-5.2 HEMOGLOBIN (test code=HGB) 6.2 gram/dL 11.5-15.5 HEMATOCRIT (test code=HCT) 23.3 % 36.0-46.0 MEAN CELL VOLUME (test code=MCV) 68.3 fL 80-98 MEAN CELL HGB (test code=MCH) 18.2 picogram 27.0-33.0 MEAN CELL HGB CONCETRATION (test 26.6 gram/dL 33.0-36.0 code=MCHC) RED CELL DISTRIBUTION WIDTH (test 20.4 % 11.6-16.2 code=RDW) RED CELL DISTRIBUTION WIDTH SD (test 48.3 fL 37.0-51.0 code=RDW-SD) PLATELET COUNT (test code=PLT) 359 K/mm3 150-450 MEAN PLATELET VOLUME (test code=MPV) 9.7 fL 6.7-11.0 NEUTROPHIL % (test code=NT%) 57.8 % 39.0-69.0 IMMATURE GRANULOCYTE % (test code=IG%) 0.3 % 0.0-5.0 LYMPHOCYTE % (test code=LY%) 31.2 % 25.0-55.0 MONOCYTE % (test code=MO%) 6.4 % 0.0-10.0 EOSINOPHIL % (test code=EO%) 3.8 % 0.0-5.0 BASOPHIL % (test code=BA%) 0.5 % 0.0-1.0 NUCLEATED RBC % (test code=NRBC%) 0.0 % 0-0 NEUTROPHIL # (test code=NT#) 5.13 K/mm3 1.8-7.7 IMMATURE GRANULOCYTE # (test code=IG#) 0.03 x10 3/uL 0-0.03 LYMPHOCYTE # (test code=LY#) 2.77 K/mm3 1.0-5.0 MONOCYTE # (test code=MO#) 0.57 K/mm3 0-0.8 EOSINOPHIL # (test code=EO#) 0.34 K/mm3 0.0-0.5 BASOPHIL # (test code=BA#) 0.04 K/mm3 0.0-0.2 NUCLEATED RBC # (test code=NRBC#) 0.00 K/mm3 0.0-0.1 MANUAL DIFF REQUIRED (test code=MDIFF) NO, ONLY SCAN NEEDED DIFFERENTIAL [id number] 02:02:00 Test Item Value Reference Range Comments STAIN ACCEPTABILITY (test code=STN ACCEPTABLE) CABOT RINGS (test code=CAB) MORPHOLOGY COMMENT (test code=MOC) PLATELET ESTIMATE (test code=PLTEST) PLATELET MORPHOLOGY (test code=PLTMORPH) CBC W/AUTO [id number] 02:02:00 Test Item Value Reference Range Comments WHITE BLOOD CELL (test code=WBC) 8.9 K/mm3 4.5-12.5 RED BLOOD CELL (test code=RBC) 3.41 mill/mm3 3.7-5.2 HEMOGLOBIN (test code=HGB) 6.2 gram/dL 11.5-15.5 HEMATOCRIT (test code=HCT) 23.3 % 36.0-46.0 MEAN CELL VOLUME (test code=MCV) 68.3 fL 80-98 MEAN CELL HGB (test code=MCH) 18.2 picogram 27.0-33.0 MEAN CELL HGB CONCETRATION (test 26.6 gram/dL 33.0-36.0 code=MCHC) RED CELL DISTRIBUTION WIDTH (test 20.4 % 11.6-16.2 code=RDW) RED CELL DISTRIBUTION WIDTH SD (test 48.3 fL 37.0-51.0 code=RDW-SD) PLATELET COUNT (test code=PLT) 359 K/mm3 150-450 MEAN PLATELET VOLUME (test code=MPV) 9.7 fL 6.7-11.0 NEUTROPHIL % (test code=NT%) 57.8 % 39.0-69.0 IMMATURE GRANULOCYTE % (test code=IG%) 0.3 % 0.0-5.0 LYMPHOCYTE % (test code=LY%) 31.2 % 25.0-55.0 MONOCYTE % (test code=MO%) 6.4 % 0.0-10.0 EOSINOPHIL % (test code=EO%) 3.8 % 0.0-5.0 BASOPHIL % (test code=BA%) 0.5 % 0.0-1.0 NUCLEATED RBC % (test code=NRBC%) 0.0 % 0-0 NEUTROPHIL # (test code=NT#) 5.13 K/mm3 1.8-7.7 IMMATURE GRANULOCYTE # (test code=IG#) 0.03 x10 3/uL 0-0.03 LYMPHOCYTE # (test code=LY#) 2.77 K/mm3 1.0-5.0 MONOCYTE # (test code=MO#) 0.57 K/mm3 0-0.8 EOSINOPHIL # (test code=EO#) 0.34 K/mm3 0.0-0.5 BASOPHIL # (test code=BA#) 0.04 K/mm3 0.0-0.2 NUCLEATED RBC # (test code=NRBC#) 0.00 K/mm3 0.0-0.1 MANUAL DIFF REQUIRED (test code=MDIFF) NO, ONLY SCAN NEEDED DIFFERENTIAL [id number] 02:02:00 Test Item Value Reference Range Comments STAIN ACCEPTABILITY (test code=STN ACCEPTABLE) MORPHOLOGY COMMENT (test code=MOC) PLATELET ESTIMATE (test code=PLTEST) PLATELET MORPHOLOGY (test code=PLTMORPH) CBC W/AUTO [id number] 02:02:00 Test Item Value Reference Range Comments WHITE BLOOD CELL (test code=WBC) 8.9 K/mm3 4.5-12.5 RED BLOOD CELL (test code=RBC) 3.41 mill/mm3 3.7-5.2 HEMOGLOBIN (test code=HGB) 6.2 gram/dL 11.5-15.5 HEMATOCRIT (test code=HCT) 23.3 % 36.0-46.0 MEAN CELL VOLUME (test code=MCV) 68.3 fL 80-98 MEAN CELL HGB (test code=MCH) 18.2 picogram 27.0-33.0 MEAN CELL HGB CONCETRATION (test 26.6 gram/dL 33.0-36.0 code=MCHC) RED CELL DISTRIBUTION WIDTH (test 20.4 % 11.6-16.2 code=RDW) RED CELL DISTRIBUTION WIDTH SD (test 48.3 fL 37.0-51.0 code=RDW-SD) PLATELET COUNT (test code=PLT) 359 K/mm3 150-450 MEAN PLATELET VOLUME (test code=MPV) 9.7 fL 6.7-11.0 NEUTROPHIL % (test code=NT%) 57.8 % 39.0-69.0 IMMATURE GRANULOCYTE % (test code=IG%) 0.3 % 0.0-5.0 LYMPHOCYTE % (test code=LY%) 31.2 % 25.0-55.0 MONOCYTE % (test code=MO%) 6.4 % 0.0-10.0 EOSINOPHIL % (test code=EO%) 3.8 % 0.0-5.0 BASOPHIL % (test code=BA%) 0.5 % 0.0-1.0 NUCLEATED RBC % (test code=NRBC%) 0.0 % 0-0 NEUTROPHIL # (test code=NT#) 5.13 K/mm3 1.8-7.7 IMMATURE GRANULOCYTE # (test code=IG#) 0.03 x10 3/uL 0-0.03 LYMPHOCYTE # (test code=LY#) 2.77 K/mm3 1.0-5.0 MONOCYTE # (test code=MO#) 0.57 K/mm3 0-0.8 EOSINOPHIL # (test code=EO#) 0.34 K/mm3 0.0-0.5 BASOPHIL # (test code=BA#) 0.04 K/mm3 0.0-0.2 NUCLEATED RBC # (test code=NRBC#) 0.00 K/mm3 0.0-0.1 MANUAL DIFF REQUIRED (test code=MDIFF) NO, ONLY SCAN NEEDED DIFFERENTIAL [id number] 02:02:00 Test Item Value Reference Range Comments STAIN ACCEPTABILITY (test code=STN ACCEPTABLE) CABOT RINGS (test code=CAB) MORPHOLOGY COMMENT (test code=MOC) PLATELET ESTIMATE (test code=PLTEST) PLATELET MORPHOLOGY (test code=PLTMORPH) [id number] 21:10:00 Test Item Value Reference Range Comments PHOSPHORUS (test code=PHOS) 4.0 mg/dL 2.5-4.9 [id number] 21:10:00 Test Item Value Reference Range Comments MAGNESIUM (test code=MAG) 2.2 mg/dL 1.8-2.4 VITAMIN [id number] 21:10:00 Test Item Value Reference Range Comments VITAMIN B12 (test code=VITB12) 327 pg/mL [id number] FOLIC [id number] 21:10:00 Test Item Value Reference Range Comments FOLIC ACID (test code=FOL) 54.3 ng/mL 3.10-17.50 URINALYSIS [id number] 20:54:00 Test Item Value Reference Range Comments UA COLOR (test code=COLU) YELLOW YELLOW UA APPEARANCE (test code=APPU) CLEAR CLEAR UA GLUCOSE DIPSTICK (test code=DGLUU) NEGATIVE mg/dL NEGATIVE UA BILIRUBIN DIPSTICK (test code=BILU) NEGATIVE mg/dL NEGATIVE UA KETONE DIPSTICK (test code=KETU) 20 (1+) mg/dL NEGATIVE UA SPECIFIC GRAVITY (test code=SGU) 1.028 1.001-1.035 UA BLOOD DIPSTICK (test code=PRASHANTH) Negative mg/dL NEGATIVE UA PH DIPSTICK (test code=ROGERS) 6.0 5.0-8.0 UA PROTEIN DIPSTICK (test code=PROU) 20 (Trace) mg/dL NEGATIVE UA UROBILINIOGEN DIPSTICK (test code=URO) Normal mg/dL NEGATIVE UA NITRITE DIPSTICK (test code=NORI) NEGATIVE NEGATIVE UA LEUKOCYTE ESTERASE W REFLEX (test NEGATIVE Dinesh/uL NEGATIVE code=LEUUR) UA WBC (test code=WBCU) 0-5 per HPF 0-5 UA RBC (test code=RBCU) 3-5 #/HPF 0-5 UA EPITHELIAL CELLS (test code=EPIU) FEW per HPF FEW UA BACTERIA (test code=BACU) NONE SEEN #/HPF NONE UA MUCUS (test code=MUCU) FEW #/LPF FEW Urine Source? Clean CatchUR HCG [id number] 20:54:00 Test Item Value Reference Range Comments UR HCG QUAL (test NEGATIVE This HCGQL test is NOT applicable code=HCGQLU) for MALE patients.Check with nurse about probable order error.If Tumor Marker Test needed, nurse should order test "HCGTU"(Test #[id number]) Urine Source? Clean CatchDRUGS OF ABUSE SCREEN [id number] 20:54:00 Test Item Value Reference Range Comments URN COCAINE (test NEGATIVE <300 ng/mL code=COCAURN) URN CANNABINOIDS (test NEGATIVE <50 ng/mL code=CANNABURN) URN AMPHETAMINE (test POSITIVE <1000 ng/mL This test provides only a code=AMPHETURN) preliminary test result. A morespecific alternate chemical method must be used in order toobtain a confirmed analytical result. Gas chromatography/mass spectrometry (GC/MS) is thepreferred confirmatory method. Other chemical confirmationmethods are available. Clinical consideration and professional judgment should be applied to any drug of abusetest result, particularly when preliminary positive resultsare used.Unconfirmed screening results must not be used fornon-medical purposes (e.g., employment testing, legaltesting). URN BARBITURATE (test NEGATIVE <200 ng/mL code=BARBITURN) URN BENZODIAZEPINE (test NEGATIVE <200 ng/mL code=BENZOURN) URN OPIATES (test NEGATIVE <300 ng/mL code=OPIATURN) URN PHENCYCLIDINE (PCP) NEGATIVE <25 ng/mL (test code=PHENCURN) URN METHADONE (test NEGATIVE <300 ng/mL code=METHAURN) Urine Source? Clean CatchPROTHROMBIN [id number] 20:51:00 Test Item Value Reference Range Comments PROTHROMBIN TIME PATIENT 12.1 seconds 9.0-14.0 (test code=PTP) INTERNATIONAL NORMAL RATIO 1.0 0.8-1.2 The therapeutic range for (test code=INR) oral anticoagulant therapy formost indications is an international normalized ratio (INR)of between 2.0 and 3.0. 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 NTHROMBOPLASTIN TIME [id number] 20:51:00 Test Item Value Reference Range Comments THROMBOPLASTIN TIME PARTIAL (test code=PTT) 31.3 seconds 25.0-36.5 IS PATIENT ON ANTICOAGULANTS? NFE W/TOTAL IRON BINDING CAP.2018-09-06 20:30:00 Test Item Value Reference Range Comments SERUM IRON (test code=IRON) 11 ug/dL 50-175 TOTAL IRON BINDING CAPACITY (test code=TIBC) 437 mcg/dL 250-450 IRON SATURATION (test code=FESAT) 2.52 % 13-45 [id number] 20:30:00 Test Item Value Reference Range Comments FERRITIN (test code=ELAINE) 3 ng/mL 8-388 [id number] 20:25:00 Test Item Value Reference Range Comments AMMONIA (test code=AMM) 19 umol/L 11-32 URINALYSIS [id number] 20:21:00 Test Item Value Reference Range Comments UA COLOR (test code=COLU) YELLOW YELLOW UA APPEARANCE (test code=APPU) CLEAR CLEAR UA GLUCOSE DIPSTICK (test code=DGLUU) NEGATIVE mg/dL NEGATIVE UA BILIRUBIN DIPSTICK (test code=BILU) NEGATIVE mg/dL NEGATIVE UA KETONE DIPSTICK (test code=KETU) 20 (1+) mg/dL NEGATIVE UA SPECIFIC GRAVITY (test code=SGU) 1.028 1.001-1.035 UA BLOOD DIPSTICK (test code=PRASHANTH) Negative mg/dL NEGATIVE UA PH DIPSTICK (test code=ROGERS) 6.0 5.0-8.0 UA PROTEIN DIPSTICK (test code=PROU) 20 (Trace) mg/dL NEGATIVE UA UROBILINIOGEN DIPSTICK (test code=URO) Normal mg/dL NEGATIVE UA NITRITE DIPSTICK (test code=NORI) NEGATIVE NEGATIVE UA LEUKOCYTE ESTERASE W REFLEX (test NEGATIVE Dinesh/uL NEGATIVE code=LEUUR) UA WBC (test code=WBCU) 0-5 per HPF 0-5 UA RBC (test code=RBCU) 3-5 #/HPF 0-5 UA EPITHELIAL CELLS (test code=EPIU) FEW per HPF FEW UA BACTERIA (test code=BACU) NONE SEEN #/HPF NONE UA MUCUS (test code=MUCU) FEW #/LPF FEW Urine Source? Clean CatchUR HCG [id number] 20:21:00 Test Item Value Reference Range Comments UR HCG QUAL (test NEGATIVE This HCGQL test is NOT applicable code=HCGQLU) for MALE patients.Check with nurse about probable order error.If Tumor Marker Test needed, nurse should order test "HCGTU"(Test #550.02209) Urine Source? Clean CatchDRUGS OF ABUSE SCREEN [id number] 20:21:00 Test Item Value Reference Range Comments URN COCAINE (test code=COCAURN) <300 ng/mL URN CANNABINOIDS (test code=CANNABURN) <50 ng/mL URN AMPHETAMINE (test code=AMPHETURN) <1000 ng/mL URN BARBITURATE (test code=BARBITURN) <200 ng/mL URN BENZODIAZEPINE (test code=BENZOURN) <200 ng/mL URN OPIATES (test code=OPIATURN) <300 ng/mL URN PHENCYCLIDINE (PCP) (test code=PHENCURN) <25 ng/mL URN METHADONE (test code=METHAURN) <300 ng/mL Urine Source? Clean CatchURINALYSIS [id number] 20:01:00 Test Item Value Reference Range Comments UA COLOR (test code=COLU) YELLOW YELLOW UA APPEARANCE (test code=APPU) CLEAR CLEAR UA GLUCOSE DIPSTICK (test code=DGLUU) NEGATIVE mg/dL NEGATIVE UA BILIRUBIN DIPSTICK (test code=BILU) NEGATIVE mg/dL NEGATIVE UA KETONE DIPSTICK (test code=KETU) 20 (1+) mg/dL NEGATIVE UA SPECIFIC GRAVITY (test code=SGU) 1.028 1.001-1.035 UA BLOOD DIPSTICK (test code=PRASHANTH) Negative mg/dL NEGATIVE UA PH DIPSTICK (test code=ROGERS) 6.0 5.0-8.0 UA PROTEIN DIPSTICK (test code=PROU) 20 (Trace) mg/dL NEGATIVE UA UROBILINIOGEN DIPSTICK (test code=URO) Normal mg/dL NEGATIVE UA NITRITE DIPSTICK (test code=NORI) NEGATIVE NEGATIVE UA LEUKOCYTE ESTERASE W REFLEX (test NEGATIVE Dinesh/uL NEGATIVE code=LEUUR) UA WBC (test code=WBCU) 0-5 per HPF 0-5 UA RBC (test code=RBCU) 3-5 #/HPF 0-5 UA EPITHELIAL CELLS (test code=EPIU) FEW per HPF FEW UA BACTERIA (test code=BACU) NONE SEEN #/HPF NONE UA MUCUS (test code=MUCU) FEW #/LPF FEW Urine Source? Clean CatchUR HCG [id number] 20:01:00 Test Item Value Reference Range Comments UR HCG QUAL (test code=HCGQLU) Urine Source? Clean CatchDRUGS OF ABUSE SCREEN [id number] 20:01:00 Test Item Value Reference Range Comments URN COCAINE (test code=COCAURN) <300 ng/mL URN CANNABINOIDS (test code=CANNABURN) <50 ng/mL URN AMPHETAMINE (test code=AMPHETURN) <1000 ng/mL URN BARBITURATE (test code=BARBITURN) <200 ng/mL URN BENZODIAZEPINE (test code=BENZOURN) <200 ng/mL URN OPIATES (test code=OPIATURN) <300 ng/mL URN PHENCYCLIDINE (PCP) (test code=PHENCURN) <25 ng/mL URN METHADONE (test code=METHAURN) <300 ng/mL Urine Source? Clean CatchCREATINE KINASE (CK)2018-09-06 19:10:00 Test Item Value Reference Range Comments CREATINE KINASE (CK) (test code=CK) 51 IUnit/L 26-208 BASIC METABOLIC [id number] 17:18:00 Test Item Value Reference Range Comments SODIUM (test code=NA) 139 mmol/L 136-145 POTASSIUM (test code=K) 3.7 mmol/L 3.5-5.1 CHLORIDE (test code=CL) 107.0 mmol/L 98-107 CARBON DIOXIDE (test 25.0 mmol/L 21-32 code=CO2) ANION GAP (test code=GAP) 10.7 10-20 GLUCOSE (test code=GLU) 90 mg/dL 74-106 BLOOD UREA NITROGEN (test 16 mg/dL 7-18 code=BUN) GLOMERULAR FILTRATION RATE > 60 mL/min >=60 Estimated GFR by using (test code=GFR) Modified MDRD formula.Chronic kidney disease is defined as either kidney damageor GFR <60 mL/min/1.73 m2 for >3 months. CREATININE (test code=CREAT) 0.70 mg/dL 0.55-1.02 Note change in reference range due to change in reagent. BUN/CREATININE RATIO (test 22.9 10-20 code=BUN/CREA) CALCIUM (test code=CA) 8.7 mg/dL 8.5-10.1 HEPATIC FUNCTION [id number] 17:18:00 Test Item Value Reference Range Comments TOTAL PROTEIN (test code=PROT) 7.6 gram/dL 6.4-8.2 ALBUMIN (test code=ALB) 4.2 g/dL 3.4-5.0 GLOBULIN (test code=GLOB) 3.4 gram/dL 2.7-4.2 ALBUMIN/GLOBULIN RATIO (test 1.2 0.75-1.50 code=A/G) BILIRUBIN TOTAL (test 0.40 mg/dL 0.0-1.0 code=BILT) BILIRUBIN DIRECT (test 0.13 mg/dL 0.0-0.20 code=BILD) SGOT/AST (test code=AST) 11 IUnit/L 15-37 SGPT/ALT (test code=ALT) 19 IUnit/L 12-78 ALKALINE PHOSPHATASE TOTAL 53 IUnit/L 45-117 Note change in reference (test code=ALKP) range due to change in reagent. HCG SERUM [id number] 17:18:00 Test Item Value Reference Range Comments HCG SERUM QUAL (test NEGATIVE NEGATIVE This HCGQL test is NOT code=HCGQL) applicable for MALE patients.Check with nurse about probable order error.If Tumor Marker Test needed, nurse should order test "HCGTU"(Test #550.34383) -- [id number] 17:18:00 Test Item Value Reference Range Comments ALCOHOL (test code=ALC) 5 mg/dL 0.0-3.0 INTERPRETIVE DATA NOTE: POSITIVE SCREENING RESULTS SHOULD BE CONSIDERED PRESUMPTIVE.WHEN COLLECTED FOR MEDICAL PURPOSES ONLY. SPECIMEN WILL NOTBE COLLECTED BY CHAIN OF CUSTODY.IF A CONFIRMATION OF POSITIVE RESULTS IS DESIRED, ACONFIRMATION TEST MUST BE REQUESTED BY THE PHYSICIAN AT ANADDITIONAL CHARGE TO THE PATIENT. BASIC METABOLIC [id number] 17:03:00 Test Item Value Reference Range Comments SODIUM (test code=NA) 139 mmol/L 136-145 POTASSIUM (test code=K) 3.7 mmol/L 3.5-5.1 CHLORIDE (test code=CL) 107.0 mmol/L 98-107 CARBON DIOXIDE (test code=CO2) mmol/L 21-32 ANION GAP (test code=GAP) 10-20 GLUCOSE (test code=GLU) mg/dL 74-106 BLOOD UREA NITROGEN (test code=BUN) mg/dL 7-18 GLOMERULAR FILTRATION RATE (test code=GFR) mL/min >=60 CREATININE (test code=CREAT) mg/dL 0.55-1.02 BUN/CREATININE RATIO (test code=BUN/CREA) 10-20 CALCIUM (test code=CA) mg/dL 8.5-10.1 HEPATIC FUNCTION [id number] 17:03:00 Test Item Value Reference Range Comments TOTAL PROTEIN (test code=PROT) gram/dL 6.4-8.2 ALBUMIN (test code=ALB) g/dL 3.4-5.0 GLOBULIN (test code=GLOB) gram/dL 2.7-4.2 ALBUMIN/GLOBULIN RATIO (test code=A/G) 0.75-1.50 BILIRUBIN TOTAL (test code=BILT) mg/dL 0.0-1.0 BILIRUBIN DIRECT (test code=BILD) mg/dL 0.0-0.20 SGOT/AST (test code=AST) IUnit/L 15-37 SGPT/ALT (test code=ALT) IUnit/L 12-78 ALKALINE PHOSPHATASE TOTAL (test code=ALKP) IUnit/L 45-117 HCG SERUM [id number] 17:03:00 Test Item Value Reference Range Comments HCG SERUM QUAL (test NEGATIVE NEGATIVE This HCGQL test is NOT code=HCGQL) applicable for MALE patients.Check with nurse about probable order error.If Tumor Marker Test needed, nurse should order test "HCGTU"(Test #550.19719) -- [id number] 17:03:00 Test Item Value Reference Range Comments ALCOHOL (test code=ALC) mg/dL 0-3 BASIC METABOLIC [id number] 17:00:00 Test Item Value Reference Range Comments SODIUM (test code=NA) mmol/L 136-145 POTASSIUM (test code=K) mmol/L 3.5-5.1 CHLORIDE (test code=CL) mmol/L 98-107 CARBON DIOXIDE (test code=CO2) mmol/L 21-32 ANION GAP (test code=GAP) 10-20 GLUCOSE (test code=GLU) mg/dL 74-106 BLOOD UREA NITROGEN (test code=BUN) mg/dL 7-18 GLOMERULAR FILTRATION RATE (test code=GFR) mL/min >=60 CREATININE (test code=CREAT) mg/dL 0.55-1.02 BUN/CREATININE RATIO (test code=BUN/CREA) 10-20 CALCIUM (test code=CA) mg/dL 8.5-10.1 HEPATIC FUNCTION [id number] 17:00:00 Test Item Value Reference Range Comments TOTAL PROTEIN (test code=PROT) gram/dL 6.4-8.2 ALBUMIN (test code=ALB) g/dL 3.4-5.0 GLOBULIN (test code=GLOB) gram/dL 2.7-4.2 ALBUMIN/GLOBULIN RATIO (test code=A/G) 0.75-1.50 BILIRUBIN TOTAL (test code=BILT) mg/dL 0.0-1.0 BILIRUBIN DIRECT (test code=BILD) mg/dL 0.0-0.20 SGOT/AST (test code=AST) IUnit/L 15-37 SGPT/ALT (test code=ALT) IUnit/L 12-78 ALKALINE PHOSPHATASE TOTAL (test code=ALKP) IUnit/L 45-117 HCG SERUM [id number] 17:00:00 Test Item Value Reference Range Comments HCG SERUM QUAL (test NEGATIVE NEGATIVE This HCGQL test is NOT code=HCGQL) applicable for MALE patients.Check with nurse about probable order error.If Tumor Marker Test needed, nurse should order test "HCGTU"(Test #550.47651) -- [id number] 17:00:00 Test Item Value Reference Range Comments ALCOHOL (test code=ALC) mg/dL 0-3 CBC W/O [id number] 16:52:00 Test Item Value Reference Range Comments WHITE BLOOD CELL (test code=WBC) 8.9 K/mm3 4.5-12.5 RED BLOOD CELL (test code=RBC) 3.59 mill/mm3 3.7-5.2 HEMOGLOBIN (test code=HGB) 6.3 gram/dL 11.5-15.5 HEMATOCRIT (test code=HCT) 24.1 % 36.0-46.0 MEAN CELL VOLUME (test code=MCV) 67.1 fL 80-98 MEAN CELL HGB (test code=MCH) 17.5 picogram 27.0-33.0 MEAN CELL HGB CONCETRATION (test code=MCHC) 26.1 gram/dL 33.0-36.0 RED CELL DISTRIBUTION WIDTH (test code=RDW) 18.7 % 11.6-16.2 PLATELET COUNT (test code=PLT) 404 K/mm3 150-450 MEAN PLATELET VOLUME (test code=MPV) 9.3 fL 6.7-11.0
--- OUTSIDE RECORDS SUMMARY | 2019-04-03 22:55 | XMS REPORT | Continuity of Care Document ---
:1975 Author Organization [facility] Care Team Providers Name Role Phone NOLOCAL, PRIMARY CARE DOC Primary Care Physician Unavailable Insurance Providers Payer Name Policy Number Subscriber Name Relationship MEDICAID PENDING [employer] [employer] SELF/SAME PATIENT [facility] PENDING [employer] SELF/SAME PATIENT Chief Complaint and Reason for Visit Reason for Visit VAG BLEEDING Problems No problem information available. Medications No medication information available. Social History No social history. Hospital Discharge Instructions No hospital discharge instructions. Plan of Care Discharge Date 09/27/18 Disposition HOME/SELF CARE Prescriptions See Medications Section Functional Status No functional status results. Allergies, Adverse Reactions, Alerts No allergy information available. Immunizations No Known History of Immunizations. Vital Signs No Known Vital Signs Results. Results Laboratory Results Test Name Result Units Flags Reference Collection Result Comments Date/Time Date/Time White Blood Count 6.7 K/uL 4.8-10.8 09/27/18 09/27/18 1:24pm 1:36pm Red Blood Count 4.41 M/uL 3.70-5.40 09/27/18 09/27/18 1:24pm 1:36pm Hemoglobin 10.9 g/dL L 12.0-16.0 09/27/18 09/27/18 1:24pm 1:36pm Hematocrit 34.0 % L 37.0-47.0 09/27/18 09/27/18 1:24pm 1:36pm Mean Corpuscular 77.2 fl L 80.0-100.0 09/27/18 09/27/18 Volume 1:24pm 1:36pm Mean Corpuscular 24.7 pg L 27.0-31.0 09/27/18 09/27/18 Hemoglobin 1:24pm 1:36pm Mean Corpuscular 32.0 g/dL 32.0-36.0 09/27/18 09/27/18 Hgb Concent Diff 1:24pm 1:36pm Red Cell 34.8 % H 11.5-14.5 09/27/18 09/27/18 Distribution Width 1:24pm 1:36pm Platelet Count 395 K/uL 130-400 09/27/18 09/27/18 1:24pm 1:36pm Mean Platelet 7.3 fl 09/27/18 09/27/18 Volume 1:24pm 1:36pm Granulocytes (%) 57.7 % 50.0-75.0 09/27/18 09/27/18 1:24pm 1:36pm Lymphocytes % 31.8 % 20.0-40.0 09/27/18 09/27/18 1:24pm 1:36pm Monocytes % 6.4 % 0.0-15.0 09/27/18 09/27/18 1:24pm 1:36pm Eosinophils % 3.3 % 0.0-10.0 09/27/18 09/27/18 1:24pm 1:36pm Basophils % 0.8 % 0.0-2.0 09/27/18 09/27/18 1:24pm 1:36pm Granulocytes # 3.9 K/uL 1.8-6.4 09/27/18 09/27/18 1:24pm 1:36pm Lymphocytes # 2.1 K/uL 1.2-3.6 09/27/18 09/27/18 1:24pm 1:36pm Monocytes # 0.4 K/uL 0.3-0.9 09/27/18 09/27/18 1:24pm 1:36pm Eosinophils # 0.2 K/ul 0.0-0.5 09/27/18 09/27/18 1:24pm 1:36pm Basophils # 0.1 K/uL 0.0-0.2 09/27/18 09/27/18 1:24pm 1:36pm Manual NO 09/27/18 09/27/18 Differential 1:24pm 1:36pm Platelet Estimate ADEQUATE ADEQUATE 09/27/18 09/27/18 1:24pm 1:57pm Platelet NORMAL NORMAL 09/27/18 09/27/18 Morphology 1:24pm 1:57pm Anisocytosis 2+ A NONE 09/27/18 09/27/18 1:24pm 1:57pm Sodium Level 138 mmol/L 135-144 09/27/18 09/27/18 1:24pm 1:41pm Potassium Level 3.7 mmol/L 3.5-5.1 09/27/18 09/27/18 1:24pm 1:41pm Chloride Level 103 mmol/L 101-111 09/27/18 09/27/18 1:24pm 1:41pm Carbon Dioxide 25 mmol/L 22-32 09/27/18 09/27/18 Level 1:24pm 1:41pm Anion Gap 13.7 mmol/L 10-20 09/27/18 09/27/18 1:24pm 1:41pm Glucose Level 80 mg/dL 65-99 09/27/18 09/27/18 1:24pm 1:41pm Prediabetes 100 to 125 mg/dl Diabetes 126 mg/dl or higher Prediabetes refers to individuals with plasma glucose levels intermediate between those considered normal and those considered diabetic and is also referred to as impaired glucose tolerance (IGT) or impaired fasting glucose (IFG). Blood Urea 12 mg/dL 10-1509/27/18 09/27/18 Nitrogen 1:24pm 1:49pm Creatinine 0.7 mg/dL 0.44-1.00 09/27/18 09/27/18 1:24pm 1:49pm EGFR Note 107.7 63.8-143.2 09/27/18 09/27/18 eGFR (Estimated Glomerular Filtration Rate) 1:24pm 1:49pm eGFR calculation value obtained using the [facility] Quadratic (MCQ) equation. The reportable reference range is recommended to be greater than 60 ml/min/1.73m. This is an estimation of the patient's GFR and clinical correlation is recommended. This eGFR calculation does not account for race. This result may differ from other equations available. Calcium Level 8.9 mg/dL 8.9-10.3 09/27/18 09/27/18 1:24pm 1:41pm Albumin 4.3 g/dL 3.5-5.0 09/27/18 09/27/18 1:24pm 1:49pm Total Bilirubin 0.3 mg/dL 0.2-1.2 09/27/18 09/27/18 1:24pm 1:49pm Alkaline 36 IU/L 32-91 09/27/18 09/27/18 Phosphatase 1:24pm 1:49pm Total Protein 7.5 g/dL 6.5-8.1 09/27/18 09/27/18 1:24pm 1:49pm Alanine 14 IU/L 7-55 09/27/18 09/27/18 Aminotransferase 1:24pm 1:49pm (ALT/SGPT) Aspartate Amino 16 IU/L 15-41 09/27/18 09/27/18 Transf (AST/SGOT) 1:24pm 1:49pm Globulin 3.2 g/dL 2.3-3.5 09/27/18 09/27/18 1:24pm 1:49pm Albumin/Globulin 1.3 1.2-2.2 09/27/18 09/27/18 Ratio 1:24pm 1:49pm Amylase Level 60 U/L 36-128 09/27/18 09/27/18 1:24pm 1:49pm Lipase 25 U/L 22-51 09/27/18 09/27/18 1:24pm 1:49pm Urine Color YELLOW YELLOW 09/27/18 09/27/18 1:00pm 1:42pm Urine Appearance CLEAR CLEAR 09/27/18 09/27/18 1:00pm 1:42pm Urine Glucose NEGATIVE mg/dL NEGATIVE 09/27/18 09/27/18 1:00pm 1:42pm Urine Bilirubin NEGATIVE NEGATIVE 09/27/18 09/27/18 1:00pm 1:42pm Urine Ketones NEGATIVE NEGATIVE 09/27/18 09/27/18 1:00pm 1:42pm Urine Specific 1.020 1.002-1.030 09/27/18 09/27/18 [place] 1:00pm 1:42pm Urine Blood MODERATE A NEGATIVE 09/27/18 09/27/18 1:00pm 1:42pm Urine pH 6.0 4.5-8.0 09/27/18 09/27/18 1:00pm 1:42pm Urine Protein NEGATIVE mg/dL NEGATIVE 09/27/18 09/27/18 1:00pm 1:42pm Urine Urobilinogen 0.2 E.U./dL 0.2 09/27/18 09/27/18 1:00pm 1:42pm Urine Nitrite NEGATIVE NEGATIVE 09/27/18 09/27/18 1:00pm 1:42pm Urine Leukocyte TRACE A NEGATIVE 09/27/18 09/27/18 Esterase 1:00pm 1:42pm Urine Microscopic YES NO 09/27/18 09/27/18 Indicated 1:00pm 1:42pm Urine RBC 6-14 /hpf A 0-2 09/27/18 09/27/18 1:00pm 1:47pm Urine WBC 0-2 /hpf 0-2 09/27/18 09/27/18 1:00pm 1:47pm Urine Epithelial 3-5 /hpf A 0-2 09/27/18 09/27/18 Cells 1:00pm 1:47pm Urine Bacteria FEW /hpf NEG 09/27/18 09/27/18 1:00pm 1:47pm Procedures Procedure Status Date Provider(s) CBCA W/PLT & AUTO DIFFERENTIAL Completed 09/27/18 SHIVANI SINGH COMPREHENSIVE METABOLIC PANEL Completed 09/27/18 SHIVANI SINGH ROUTINE URINALYSIS Completed 09/27/18 SHIVANI SINGH AMYLASE Completed 09/27/18 SHIVANI SINGH LIPASE Completed 09/27/18 SHIVANI SINGH TYPE AND SCREEN Completed 09/27/18 SHIVANI SINGH US PELVIC NON OB Active 09/27/18 SHIVANI SINGH Encounters Encounter Location Arrival/Admit Date Discharge/Depart Date Attending Provider Departed [place] 09/27/18 12:08pm 09/27/18 3:30pm MEJIA SOLOMON [facility]
[2019-04-03 23:26] LABS: Absolute Lymphocytes (CBC) 2.4 K/uL (0.7-4.9); Basophils % 0.7 % (0-1.3); Hematocrit 21.3 % (36.0-45.0); Lymphocytes % 33.7 % (15.3-44.8); MPV 7.3 fL (7.6-11.3); RBC Red Blood Cell Count 3.17 M/uL (3.86-4.86)
[2019-04-03 23:29] LABS: Protime INR 0.96
[2019-04-03 23:42] LABS: Potassium 3.9 mmol/L (3.5-5.1)
[2019-04-04 00:19] LABS: Urine Blood NEGATIVE (NEG); Urine Glucose NEGATIVE (NEG); Urine Protein NEGATIVE (NEG); Urine Specific Gravity 1.015 (1.005-1.030)
[2019-04-04] MEDS ORDERED: NA CHLORIDE 0.9% 50 ML IV ONE ×2 (00:43→02:15)
[2019-04-04] MEDS ORDERED: ACETAMINOPHEN 325 MG TABLET ONE (00:58)
[2019-04-04 01:24] LABS: Urine Bacteria <20 /HPF (<20); Urine Culture Reflex Order NOT NEEDED; Urine RBC NONE SEEN /HPF (NONE SEEN); Urine Urothelial Cells <5 /HPF (NONE SEEN)
[2019-04-04 01:34] LABS: Anisocytosis 1+; Blood Morphology Comment NOTED (NOT SEEN); Hypochromasia 2+; Ovalocytes 2+; Platelet Estimate ADEQ; Teardrop Cell 2+; Urine White Blood Cell Casts OK
--- NOTE | 2019-04-04 03:51 | ER ---
Nurse's Notes [facility] Name: Gi Bentley Age: 44 yrs Sex: Female : 1975 Arrival Date: 04/03/2019 Time: 22:55 Bed 5 Private MD: Diagnosis: Anemia, unspecified Presentation: 04/03 22:55 Presenting complaint: EMS states: Pt reports being dizzy for the past 2 days. Was here jb4 earlier today due to getting a phone call saying her H\T\H was low. Is now feeling dizzy and weak. Transition of care: patient was not received from another setting of care. Onset of symptoms was April 01, 2019. Risk Assessment: Do you want to hurt yourself or someone else? Patient reports no desire to harm self or others. Initial Sepsis Screen: Does the patient meet any 2 criteria? No. Patient's initial sepsis screen is negative. Does the patient have a suspected source of infection? No. Patient's initial sepsis screen is negative. Care prior to arrival: None. 22:55 Method Of Arrival: EMS: [facility] jb4 22:55 Acuity: FIDE 3 jb4 Historical: - Allergies: 22:59 No Known Allergies; jb4 - Home Meds: 22:59 fluoxetine 20 mg Oral tab 1 tab once daily [Active]; trazodone 100 mg Oral tab 1 tab jb4 nightly [Active]; hydroxyzine pamoate 100 mg Oral cap 1 cap three times a day [Active]; naltrexone 50 mg Oral tab 1 tab once daily [Active]; olanzapine 20 mg Oral tab 1 tab once daily [Active]; - PMHx: 22:59 Bipolar disorder; Anxiety; Schizophrenia; jb4 - PSHx: 22:59 None; jb4 - Immunization history:: Adult Immunizations up to date. - Coronavirus screen:: The patient has NOT traveled to [place] in the past 14 days. Proceed with normal triage process as indicated. The patient has NOT had contact with known/suspected case of Coronavirus? Proceed with normal triage procedures. - Social history:: Smoking status: Patient denies any tobacco usage or history of. Patient/guardian denies using alcohol, street drugs. - Family history:: not pertinent. - Ebola Screening: : No symptoms or risks identified at this time. - Hospitalizations: : No recent hospitalization is reported. Screenin:00 Abuse screen: Denies threats or abuse. Nutritional screening: No deficits noted. jb4 Tuberculosis screening: No symptoms or risk factors identified. Fall Risk None identified. Assessment: 23:00 General: Appears in no apparent distress. comfortable, Behavior is calm, cooperative, jb4 appropriate for age. Pain: Complains of pain in left inguinal area and left iliac crest Pain does not radiate. Pain currently is 7 out of 10 on a pain scale. Neuro: Level of Consciousness is awake, alert, obeys commands, Oriented to person, place, time, situation. Cardiovascular: Patient's skin is warm and dry. Respiratory: Airway is patent Respiratory effort is even, unlabored, Respiratory pattern is regular, symmetrical. GI: No signs and/or symptoms were reported involving the gastrointestinal system. : No signs and/or symptoms were reported regarding the genitourinary system. EENT: No signs and/or symptoms were reported regarding the EENT system. Derm: Skin is intact, Skin is pink, warm \T\ dry. Musculoskeletal: Circulation, motion, and sensation intact. Range of motion: intact in all extremities. 04/04 00:03 Reassessment: Patient appears in no apparent distress at this time. Patient and/or jb4 family updated on plan of care and expected duration. Pain level reassessed. Patient is alert, oriented x 3, equal unlabored respirations, skin warm/dry/pink. Consent form signed for PRBC transfusion. 00:58 Reassessment: Patient appears in no apparent distress at this time. Patient and/or jb4 family updated on plan of care and expected duration. Pain level reassessed. Patient is alert, oriented x 3, equal unlabored respirations, skin warm/dry/pink. 01:20 Reassessment: Patient appears in no apparent distress at this time. Patient and/or jb4 family updated on plan of care and expected duration. Pain level reassessed. Patient is alert, oriented x 3, equal unlabored respirations, skin warm/dry/pink. Blood transfusion started. Respiratory: Airway is patent Respiratory effort is even, unlabored, Respiratory pattern is regular, symmetrical, Breath sounds are clear bilaterally. 02:10 Reassessment: Patient appears in no apparent distress at this time. Patient and/or jb4 family updated on plan of care and expected duration. Pain level reassessed. Patient is alert, oriented x 3, equal unlabored respirations, skin warm/dry/pink. 1st blood transfusion completed. Respiratory: Airway is patent Respiratory effort is even, unlabored, Respiratory pattern is regular, symmetrical, Breath sounds are clear bilaterally. 03:15 Reassessment: Patient appears in no apparent distress at this time. Patient and/or jb4 family updated on plan of care and expected duration. Pain level reassessed. PT is resting in bed with respirations even and unlabored, no s/s of pain or distress noted. 2nd blood transfusion completed. 03:15 Respiratory: Airway is patent Respiratory effort is even, unlabored, Respiratory jb4 pattern is regular, symmetrical, Breath sounds are clear bilaterally. 04:03 Reassessment: Patient appears in no apparent distress at this time. Patient and/or jb4 family updated on plan of care and expected duration. Pain level reassessed. Patient is alert, oriented x 3, equal unlabored respirations, skin warm/dry/pink. Pt verbalized understanding of d/c and follow up instructions. Ambulated out of ED with steady gait. Vital Signs: 04/03 22:59 BP 113 / 75; Pulse 85; Resp 18; Temp 99.0(O); Pulse Ox 100% on R/A; Weight 58.97 kg jb4 (R); Height 5 ft. 2 in. (157.48 cm) (R); Pain 7/10; 23:30 BP 99 / 71; Pulse 84; Resp 16; Pulse Ox 99% on R/A; rv 23:35 BP 106 / 62; Pulse 82; Resp 16; Pulse Ox 99% on R/A; rv 23:45 BP 89 / 60; Pulse 91; Resp 17; Pulse Ox 99% on R/A; rv 23:51 BP 137 / 84; Pulse 92; Resp 16; Pulse Ox 100% on R/A; rv 04/04 00:55 BP 95 / 61; Pulse 97; Resp 16; Pulse Ox 96% on R/A; jb4 01:00 BP 102 / 80; Pulse 91; Resp 16; Temp 98.4(O); Pulse Ox 99% on R/A; jb4 01:30 BP 97 / 69; Pulse 97; Resp 16; Pulse Ox 97% on R/A; rv 02:00 BP 103 / 71; Pulse 92; Resp 17; Pulse Ox 97% on R/A; rv 03:20 BP 101 / 66; Pulse 88; Resp 16; Pulse Ox 97% on R/A; jb4 04/03 22:59 Body Mass Index 23.78 (58.97 kg, 157.48 cm) jb4 01:00 See Transfusion flow sheet for further documentation. jb4 ED Course: 04/03 22:55 Patient arrived in ED. jb4 22:56 Joaquin Wheatley MD is Attending Physician. rn 22:57 Triage completed. jb4 22:59 Arm band placed on right wrist. jb4 23:00 Patient has correct armband on for positive identification. Bed in low position. Call jb4 light in reach. Side rails up X 1. Pulse ox on. NIBP on. 23:05 Gonzalo Barton, RN is Primary Nurse. rv 23:10 Initial lab(s) drawn, by tn, sent to lab. Inserted saline lock: 20 gauge in right jb4 antecubital area, using aseptic technique. Blood collected. 23:47 Vasquez Huddleston, RN is Primary Nurse. [facility] 04/04 04:02 No provider procedures requiring assistance completed. IV discontinued, intact, jb4 bleeding controlled, No redness/swelling at site. Pressure dressing applied. Administered Medications: 00:58 Drug: Tylenol 650 mg Route: PO; 4 Point of Care Testing: Guaiac: 04/03 23:53 Stool Guaiac: Negative; Stool Hemoccult Control: Pass; rn Outcome: 04/04 03:48 Discharge ordered by . rn 04:02 Discharged to home ambulatory. jb4 04:02 Condition: stable 04:02 Discharge instructions given to patient, Instructed on discharge instructions, follow up and referral plans. Demonstrated understanding of instructions, follow-up care. 04:04 Patient left the ED. 4 Signatures: Joaquin Wheatley MD MD rn Bryson, James, RN RN [facility] Gonzalo Barton, DAHLIA RN rv Corrections: (The following items were deleted from the chart) 01:42 00:58 BP 95 / 61; Pulse 97bpm; Resp 16bpm; Pulse Ox 96% RA; jb4 jb4
--- NOTE | 2019-04-04 03:52 | EDPHYS ---
Physician Documentation [facility] Name: Gi Bentley Age: 44 yrs Sex: Female : 1975 Arrival Date: 04/03/2019 Time: 22:55 Bed 5 Private MD: ED Physician Joaquin Wheatley HPI: 04/03 22:59 This 44 yrs old Female presents to ER via EMS with complaints of Dizziness. rn 22:59 The patient presents with generalized weakness, lightheadedness. Onset: The rn symptoms/episode began/occurred at an unknown time. Modifying factors: The symptoms are alleviated by nothing, the symptoms are aggravated by standing up. Severity of symptoms: At their worst the symptoms were mild in the emergency department the symptoms are unchanged. The patient has experienced similar episodes in the past. Reports chronic bleeding, told in past has "uterus full of fibroids", reports heavy periods for more than half the month, reports last period 5 days ago and bled for 7 days. No syncope or sob. Reports told to return because of anemia. . Historical: - Allergies: 22:59 No Known Allergies; jb4 - Home Meds: 22:59 fluoxetine 20 mg Oral tab 1 tab once daily [Active]; trazodone 100 mg Oral tab 1 tab jb4 nightly [Active]; hydroxyzine pamoate 100 mg Oral cap 1 cap three times a day [Active]; naltrexone 50 mg Oral tab 1 tab once daily [Active]; olanzapine 20 mg Oral tab 1 tab once daily [Active]; - PMHx: 22:59 Bipolar disorder; Anxiety; Schizophrenia; jb4 - PSHx: 22:59 None; jb4 - Immunization history:: Adult Immunizations up to date. - Coronavirus screen:: The patient has NOT traveled to [place] in the past 14 days. Proceed with normal triage process as indicated. The patient has NOT had contact with known/suspected case of Coronavirus? Proceed with normal triage procedures. - Social history:: Smoking status: Patient denies any tobacco usage or history of. Patient/guardian denies using alcohol, street drugs. - Family history:: not pertinent. - Ebola Screening: : No symptoms or risks identified at this time. - Hospitalizations: : No recent hospitalization is reported. ROS: 22:59 Constitutional: Negative for fever, chills, and weight loss, Eyes: Negative for injury, rn pain, redness, and discharge, Cardiovascular: Negative for chest pain, palpitations, and edema, Respiratory: Negative for shortness of breath, cough, wheezing, and pleuritic chest pain, Abdomen/GI: Negative for abdominal pain, nausea, vomiting, diarrhea, and constipation, MS/Extremity: Negative for injury and deformity, Skin: Negative for injury, rash, and discoloration, Neuro: Negative for headache, numbness, tingling, and seizure. Exam: 22:59 Constitutional: This is a well developed, well nourished patient who is awake, alert, rn and in no acute distress. Head/Face: Normocephalic, atraumatic. Eyes: Pale conjunctivae ENT: MMM Cardiovascular: Regular rate and rhythm. No pulse deficits. Respiratory: Speaking full sentences. No increased work of breathing, no retractions or nasal flaring. Abdomen/GI: soft, non-tender MS/ Extremity: Pulses equal, no cyanosis. Neurovascular intact. Full, normal range of motion. Equal circumference. Neuro: Awake and alert, GCS 15, oriented to person, place, time, and situation. Cranial nerves II-XII grossly intact. Motor strength 5/5 in all extremities. Sensory grossly intact. Cerebellar exam normal. Normal gait. Vital Signs: 22:59 BP 113 / 75; Pulse 85; Resp 18; Temp 99.0(O); Pulse Ox 100% on R/A; Weight 58.97 kg jb4 (R); Height 5 ft. 2 in. (157.48 cm) (R); Pain 7/10; 23:30 BP 99 / 71; Pulse 84; Resp 16; Pulse Ox 99% on R/A; rv 23:35 BP 106 / 62; Pulse 82; Resp 16; Pulse Ox 99% on R/A; rv 23:45 BP 89 / 60; Pulse 91; Resp 17; Pulse Ox 99% on R/A; rv 23:51 BP 137 / 84; Pulse 92; Resp 16; Pulse Ox 100% on R/A; rv 04/04 00:55 BP 95 / 61; Pulse 97; Resp 16; Pulse Ox 96% on R/A; jb4 01:00 BP 102 / 80; Pulse 91; Resp 16; Temp 98.4(O); Pulse Ox 99% on R/A; jb4 01:30 BP 97 / 69; Pulse 97; Resp 16; Pulse Ox 97% on R/A; rv 02:00 BP 103 / 71; Pulse 92; Resp 17; Pulse Ox 97% on R/A; rv 03:20 BP 101 / 66; Pulse 88; Resp 16; Pulse Ox 97% on R/A; jb4 04/03 22:59 Body Mass Index 23.78 (58.97 kg, 157.48 cm) [facility] 01:00 See Transfusion flow sheet for further documentation. [facility] MDM: 04/03 22:57 Patient medically screened. rn 22:59 ED course: Reports last blood transfusion for this problem was last year. . rn 23:53 Differential diagnosis: generalized weakness, hypovolemia, anemia. Data reviewed: vital rn signs, nurses notes, lab test result(s). ED course: Pt with hemoglobin 6.5, symptomatic, no current bleeding, likely from fibroids as stool neg for blood. Will transfuse is ER and dc back to rehab. Urged to f/u with [employer] again, who told her in past will need hysterectomy.. 04/04 00:24 ED course: Recommended Iron supplementation. rn 03:47 Counseling: I had a detailed discussion with the patient and/or guardian regarding: the rn historical points, exam findings, and any diagnostic results supporting the discharge/admit diagnosis, lab results, the need for outpatient follow up, to return to the emergency department if symptoms worsen or persist or if there are any questions or concerns that arise at home. Response to treatment: the patient's symptoms have markedly improved after treatment, the patient's condition has returned to base line, and as a result, I will discharge patient. Special discussion: I discussed with the patient/guardian in detail that at this point there is no indication for admission to the hospital. It is understood, however, that if the symptoms persist or worsen the patient needs to return immediately for re-evaluation. Based on the history and exam findings, there is no indication for further emergent testing or inpatient evaluation. I discussed with the patient/guardian the need to see the OB Gyne specialist for further evaluation of the symptoms. ED course: Patient with improved BP and heart rate, feels better, will dc home with f/u with [employer].. 04/03 22:58 Order name: CBC with Diff rn 04/03 21:58 Order name: Basic Metabolic Panel rn 02/12 22:58 Order name: Protime (+inr) rn 04/03 22:58 Order name: Ptt, Activated rn 04/03 22:58 Order name: Type And Screen rn 04/03 22:58 Order name: Urine Microscopic Only rn 04/03 23:25 Order name: Urine Dipstick--Ancillary (enter results) nv 04/03 23:25 Order name: Urine --Ancillary (enter results) nv 04/03 23:35 Order name: CBC with Automated Diff; Complete Time: 03:11 EDPR 04/03 23:35 Order name: Protime (+INR); Complete Time: 23:43 EDMS 04/03 23:35 Order name: PTT, Activated Partial Thromb; Complete Time: 23:43 EDPR 04/03 23:45 Order name: Basic Metabolic Panel; Complete Time: 00:07 EDPR 04/04 00:08 Order name: ABO/RH no charge; Complete Time: 00:24 EDMS 04/04 00:23 Order name: Urine --Ancillary; Complete Time: 00:24 EDPR 04/03 22:58 Order name: IV Start; Complete Time: 23:48 rn 04/03 22:58 Order name: Urine Test (obtain specimen); Complete Time: 23:48 rn 04/03 22:58 Order name: Urine Dipstick-Ancillary (obtain specimen); Complete Time: 23:48 04/04 00:23 Order name: Urine Dipstick-Ancillary; Complete Time: 00:24 EDPR 04/04 00:50 Order name: Type and Screen [facility] 04/04 01:24 Order name: Urine Microscopic Only; Complete Time: 03:11 EDPR 04/04 01:35 Order name: CBC Smear Scan; Complete Time: 03:11 EDPR 04/04 03:22 Order name: Hemoglobin rn 04/04 04:03 Order name: Hemoglobin; Complete Time: 04:57 EDMS Administered Medications: 00:58 Drug: Tylenol 650 mg Route: PO; jb4 Point of Care Testing: Guaiac: 04/03 23:53 Stool Guaiac: Negative; Stool Hemoccult Control: Pass; rn Disposition: 04/04/19 03:48 Discharged to Home. Impression: Anemia, unspecified. - Condition is Stable. - Discharge Instructions: Anemia, Nonspecific, Blood Transfusion, Adult. - Medication Reconciliation Form, Thank You Letter, Antibiotic Education, Prescription Opioid Use form. - Follow up: Private Physician; When: As needed; Reason: Recheck today's complaints, Re-evaluation by your physician. - Problem is an ongoing problem. - Symptoms have improved. - Notes: Pt is able to return safely to rehab facility and partake in rehab. Signatures: Dispatcher [employer] EDJoaquin Harris MD MD rn Bryson, James, RN RN jb4 Corrections: (The following items were deleted from the chart) 04/04 04:04 03:48 04/04/2019 03:48 Discharged to Home. Impression: Anemia, unspecified. Condition jb4 is Stable. Forms are Medication Reconciliation Form, Thank You Letter, Antibiotic Education, Prescription Opioid Use. Follow up: Private Physician; When: As needed; Reason: Recheck today's complaints, Re-evaluation by your physician. Problem is an ongoing problem. Symptoms have improved. rn
[2019-04-05 06:54] VITALS: TEMP 98.4
[2019-04-05 06:55] VITALS: O2SAT 97
[2019-04-05 06:57] VITALS: BP 101/66
== END 2019-04-04 04:04 | disposition home or self-care (01) ==
LOC: ER 22:50
PROC: 30233N1 Transfusion of Nonautologous Red Blood Cells into Peripheral Vein, Percutaneous Approach (ICD-10-PCS; principal; 2019-04-04)
DX: D64.9 Anemia, unspecified (principal)
CPT/HCPCS: 36430; P9021; 36415; 80048; 81003; 81015; 81025; 85018; 85025; 85610; 85730; 86850; 86900; 86901; 99284; P9016

== ENCOUNTER 2019-04-26 19:16 | Emergency (ER) | payer SELFPAY ==
--- OUTSIDE RECORDS SUMMARY | 2019-04-26 19:24 | XMS REPORT ---
:1975 [facility] Address [address] [place] [address] Care Team Providers Name Role Phone Unavailable [...] Clinicians Facility Department ID 2017-03-25 2017-03-25 Emergency [facility] [id number] 21:46:10 21:46:10 2017-03-25 2017-03-25 Emergency [facility] [id number] 20:41:10 20:41:10 Results Test Description Test Time Test Comments Text Results Atomic Results Result Comments BASIC METABOLIC PANEL 2019-04-17 15:25:00 Test Item Value Reference Range Comments SODIUM (test code=NA) 139 mmol/L 136-145 POTASSIUM (test code=K) 3.9 mmol/L 3.5-5.1 CHLORIDE (test code=CL) 108.0 mmol/L 98-107 CARBON DIOXIDE (test code=CO2) 23.0 mmol/L 21-32 ANION GAP (test code=GAP) 11.9 10-20 GLUCOSE (test code=GLU) 77 mg/dL 74-106 BLOOD UREA NITROGEN (test 14 mg/dL 7-18 code=BUN) GLOMERULAR FILTRATION RATE (test > 60 mL/min >=60 Estimated GFR by using code=GFR) Modified MDRD formula.Chronic kidney disease is defined as either kidney damageor GFR <60 mL/min/1.73 m2 for >3 months. CREATININE (test code=CREAT) 0.70 mg/dL 0.55-1.02 Note change in reference range due to change in reagent. BUN/CREATININE RATIO (test 20.0 10-20 code=BUN/CREA) CALCIUM (test code=CA) 9.0 mg/dL 8.5-10.1 HEPATIC FUNCTION [id number] 15:25:00 Test Item Value Reference Range Comments TOTAL PROTEIN (test code=PROT) 8.0 gram/dL 6.4-8.2 ALBUMIN (test code=ALB) 4.5 g/dL 3.4-5.0 GLOBULIN (test code=GLOB) 3.5 gram/dL 2.7-4.2 ALBUMIN/GLOBULIN RATIO (test 1.3 0.75-1.50 code=A/G) BILIRUBIN TOTAL (test 0.60 mg/dL 0.0-1.0 code=BILT) BILIRUBIN DIRECT (test 0.14 mg/dL 0.0-0.20 code=BILD) SGOT/AST (test code=AST) 12 IUnit/L 15-37 SGPT/ALT (test code=ALT) 16 IUnit/L 12-78 ALKALINE PHOSPHATASE TOTAL 55 IUnit/L 45-117 Note change in reference (test code=ALKP) range due to change in reagent. HCG SERUM [id number] 15:25:00 Test Item Value Reference Range Comments HCG SERUM QUAL (test NEGATIVE NEGATIVE This HCGQL test is NOT code=HCGQL) applicable for MALE patients.Check with nurse about probable order error.If Tumor Marker Test needed, nurse should order test "HCGTU"(Test #550.47553) -- [id number] 15:25:00 Test Item Value Reference Range Comments ALCOHOL (test code=ALC) < 3 mg/dL 0.0-3.0 INTERPRETIVE DATA NOTE: POSITIVE SCREENING RESULTS SHOULD BE CONSIDERED PRESUMPTIVE.WHEN COLLECTED FOR MEDICAL PURPOSES ONLY. SPECIMEN WILL NOTBE COLLECTED BY CHAIN OF CUSTODY.IF A CONFIRMATION OF POSITIVE RESULTS IS DESIRED, ACONFIRMATION TEST MUST BE REQUESTED BY THE PHYSICIAN AT ANADDITIONAL CHARGE TO THE PATIENT. URINALYSIS [id number] 15:25:00 Test Item Value Reference Range Comments UA COLOR (test code=COLU) RED YELLOW UA APPEARANCE (test code=APPU) TURBID CLEAR UA GLUCOSE DIPSTICK (test code=DGLUU) NEGATIVE mg/dL NEGATIVE UA BILIRUBIN DIPSTICK (test NEGATIVE mg/dL NEGATIVE code=BILU) UA KETONE DIPSTICK (test code=KETU) NEGATIVE mg/dL NEGATIVE UA SPECIFIC GRAVITY (test code=SGU) 1.010 1.001-1.035 UA BLOOD DIPSTICK (test code=PRASHANTH) >1.0 mg/dL NEGATIVE UA PH DIPSTICK (test code=ROGERS) 6.5 5.0-8.0 UA PROTEIN DIPSTICK (test code=PROU) 100 (2+) mg/dL NEGATIVE UA UROBILINIOGEN DIPSTICK (test Normal mg/dL NEGATIVE code=URO) UA NITRITE DIPSTICK (test code=NORI) NEGATIVE NEGATIVE UA LEUKOCYTE ESTERASE W REFLEX (test 250 Dinesh/uL (2+) Dinesh/uL NEGATIVE code=LEUUR) UA WBC (test code=WBCU) >200 per HPF 0-5 UA RBC (test code=RBCU) >200 #/HPF 0-5 UA WBC CLUMPS (test code=WBCUCL) >10 /HPF NONE UA EPITHELIAL CELLS (test code=EPIU) FEW per HPF FEW UA BACTERIA (test code=BACU) FEW #/HPF NONE UA MUCUS (test code=MUCU) FEW #/LPF FEW Urine Source? Clean CatchDRUGS OF ABUSE SCREEN [id number] 15:25:00 Test Item Value Reference Range Comments URN [...] NEGATIVE <300 ng/mL code=METHAURN) Urine Source? Clean CatchBASIC METABOLIC [id number] 15:14:00 Test Item Value Reference Range Comments SODIUM (test code=NA) 139 mmol/L 136-145 POTASSIUM (test code=K) 3.9 mmol/L 3.5-5.1 CHLORIDE (test code=CL) 108.0 mmol/L 98-107 CARBON DIOXIDE (test code=CO2) mmol/L 21-32 ANION GAP (test code=GAP) 10-20 GLUCOSE (test code=GLU) mg/dL 74-106 BLOOD UREA NITROGEN (test code=BUN) mg/dL 7-18 GLOMERULAR FILTRATION RATE (test code=GFR) mL/min >=60 CREATININE (test code=CREAT) mg/dL 0.55-1.02 BUN/CREATININE RATIO (test code=BUN/CREA) 10-20 CALCIUM (test code=CA) mg/dL 8.5-10.1 HEPATIC FUNCTION [id number] 15:14:00 Test Item Value Reference Range Comments TOTAL PROTEIN (test code=PROT) gram/dL 6.4-8.2 ALBUMIN (test code=ALB) g/dL 3.4-5.0 GLOBULIN (test code=GLOB) gram/dL 2.7-4.2 ALBUMIN/GLOBULIN RATIO (test code=A/G) 0.75-1.50 BILIRUBIN TOTAL (test code=BILT) mg/dL 0.0-1.0 BILIRUBIN DIRECT (test code=BILD) mg/dL 0.0-0.20 SGOT/AST (test code=AST) IUnit/L 15-37 SGPT/ALT (test code=ALT) IUnit/L 12-78 ALKALINE PHOSPHATASE TOTAL (test code=ALKP) IUnit/L 45-117 HCG SERUM [id number] 15:14:00 Test Item Value Reference Range Comments HCG SERUM QUAL (test NEGATIVE NEGATIVE This HCGQL test is NOT code=HCGQL) applicable for MALE patients.Check with nurse about probable order error.If Tumor Marker Test needed, nurse should order test "HCGTU"(Test #550.99021) -- [id number] 15:14:00 Test Item Value Reference Range Comments ALCOHOL (test code=ALC) mg/dL 0-3 BASIC METABOLIC [id number] 15:10:00 Test Item Value Reference Range Comments SODIUM [...] CALCIUM (test code=CA) mg/dL 8.5-10.1 HEPATIC FUNCTION [id number] 15:10:00 Test Item Value Reference Range Comments TOTAL PROTEIN (test code=PROT) gram/dL 6.4-8.2 ALBUMIN (test code=ALB) g/dL 3.4-5.0 GLOBULIN (test code=GLOB) gram/dL 2.7-4.2 ALBUMIN/GLOBULIN RATIO (test code=A/G) 0.75-1.50 BILIRUBIN TOTAL (test code=BILT) mg/dL 0.0-1.0 BILIRUBIN DIRECT (test code=BILD) mg/dL 0.0-0.20 SGOT/AST (test code=AST) IUnit/L 15-37 SGPT/ALT (test code=ALT) IUnit/L 12-78 ALKALINE PHOSPHATASE TOTAL (test code=ALKP) IUnit/L 45-117 HCG SERUM [id number] 15:10:00 Test Item Value Reference Range Comments HCG SERUM QUAL (test NEGATIVE NEGATIVE This HCGQL test is NOT code=HCGQL) applicable for MALE patients.Check with nurse about probable order error.If Tumor Marker Test needed, nurse should order test "HCGTU"(Test #550.78421) -- [id number] 15:10:00 Test Item Value Reference Range Comments ALCOHOL (test code=ALC) mg/dL 0-3 CBC W/O [id number] 14:51:00 Test Item Value Reference Range Comments WHITE BLOOD CELL (test code=WBC) 9.5 K/mm3 4.5-12.5 RED BLOOD CELL (test code=RBC) 4.99 mill/mm3 3.7-5.2 HEMOGLOBIN (test code=HGB) 12.1 gram/dL 11.5-15.5 HEMATOCRIT (test code=HCT) 39.2 % 36.0-46.0 MEAN CELL VOLUME (test code=MCV) 78.6 fL 80-98 MEAN CELL HGB (test code=MCH) 24.2 picogram 27.0-33.0 MEAN CELL HGB CONCETRATION (test code=MCHC) 30.9 gram/dL 33.0-36.0 RED CELL DISTRIBUTION WIDTH (test code=RDW) 27.9 % 11.6-16.2 PLATELET COUNT (test code=PLT) 436 K/mm3 150-450 MEAN PLATELET VOLUME (test code=MPV) 8.9 fL 6.7-11.0 CBC W/O [id number] 14:49:00 Test Item Value Reference Range Comments WHITE BLOOD CELL (test code=WBC) K/mm3 4.5-12.5 RED BLOOD CELL (test code=RBC) mill/mm3 3.7-5.2 HEMOGLOBIN (test code=HGB) 12.1 gram/dL 11.5-15.5 HEMATOCRIT (test code=HCT) 39.2 % 36.0-46.0 MEAN CELL VOLUME (test code=MCV) fL 80-98 MEAN CELL HGB (test code=MCH) picogram 27.0-33.0 MEAN CELL HGB CONCETRATION (test code=MCHC) gram/dL 33.0-36.0 RED CELL DISTRIBUTION WIDTH (test code=RDW) % 11.6-16.2 PLATELET COUNT (test code=PLT) K/mm3 150-450 MEAN PLATELET VOLUME (test code=MPV) fL 6.7-11.0 URINALYSIS [id number] 14:20:00 Test Item Value Reference Range Comments UA COLOR (test code=COLU) RED YELLOW UA APPEARANCE (test code=APPU) TURBID CLEAR UA GLUCOSE DIPSTICK (test code=DGLUU) NEGATIVE mg/dL NEGATIVE UA BILIRUBIN DIPSTICK (test NEGATIVE mg/dL NEGATIVE code=BILU) UA KETONE DIPSTICK (test code=KETU) NEGATIVE mg/dL NEGATIVE UA SPECIFIC GRAVITY (test code=SGU) 1.010 1.001-1.035 UA BLOOD DIPSTICK (test code=PRASHANTH) >1.0 mg/dL NEGATIVE UA PH DIPSTICK (test code=ROGERS) 6.5 5.0-8.0 UA PROTEIN DIPSTICK (test code=PROU) 100 (2+) mg/dL NEGATIVE UA UROBILINIOGEN DIPSTICK (test Normal mg/dL NEGATIVE code=URO) UA NITRITE DIPSTICK (test code=NORI) NEGATIVE NEGATIVE UA LEUKOCYTE ESTERASE W REFLEX (test 250 Dinesh/uL (2+) Dinesh/uL NEGATIVE code=LEUUR) UA WBC (test code=WBCU) >200 per HPF 0-5 UA RBC (test code=RBCU) >200 #/HPF 0-5 UA WBC CLUMPS (test code=WBCUCL) >10 /HPF NONE UA EPITHELIAL CELLS (test code=EPIU) FEW per HPF FEW UA BACTERIA (test code=BACU) FEW #/HPF NONE UA MUCUS (test code=MUCU) FEW #/LPF FEW Urine Source? Clean CatchDRUGS OF ABUSE SCREEN [id number] 14:20:00 Test Item Value Reference Range Comments URN COCAINE (test code=COCAURN) <300 ng/mL URN CANNABINOIDS (test code=CANNABURN) <50 ng/mL URN AMPHETAMINE (test code=AMPHETURN) <1000 ng/mL URN BARBITURATE (test code=BARBITURN) <200 ng/mL URN BENZODIAZEPINE (test code=BENZOURN) <200 ng/mL URN OPIATES (test code=OPIATURN) <300 ng/mL URN PHENCYCLIDINE (PCP) (test code=PHENCURN) <25 ng/mL URN METHADONE (test code=METHAURN) <300 ng/mL Urine Source? Clean CatchCBC W/O [id number] 05:41:00 Test Item Value Reference Range Comments WHITE BLOOD CELL (test code=WBC) 9.2 K/mm3 4.5-12.5 RED BLOOD CELL (test code=RBC) 4.38 mill/mm3 3.7-5.2 HEMOGLOBIN (test code=HGB) 11.5 gram/dL 11.5-15.5 HEMATOCRIT (test code=HCT) 37.1 % 36.0-46.0 MEAN CELL VOLUME (test code=MCV) 84.7 fL 80-98 MEAN CELL HGB (test code=MCH) 26.3 picogram 27.0-33.0 MEAN CELL HGB CONCETRATION (test 31.0 gram/dL 33.0-36.0 code=MCHC) RED CELL DISTRIBUTION WIDTH (test TEST NOT PERFORMED % 11.6-16.2 code=RDW) PLATELET COUNT (test code=PLT) 290 K/mm3 150-450 MEAN PLATELET VOLUME (test code=MPV) 9.5 fL 6.7-11.0 URINALYSIS [id number] 05:28:00 Test Item Value Reference Range Comments UA COLOR (test code=COLU) YELLOW YELLOW UA APPEARANCE (test code=APPU) CLEAR CLEAR UA GLUCOSE DIPSTICK (test code=DGLUU) NEGATIVE mg/dL NEGATIVE UA BILIRUBIN DIPSTICK (test code=BILU) NEGATIVE mg/dL NEGATIVE UA KETONE DIPSTICK (test code=KETU) 40 (2+) mg/dL NEGATIVE UA SPECIFIC GRAVITY (test code=SGU) 1.033 1.001-1.035 UA BLOOD DIPSTICK (test code=RPASHANTH) Negative mg/dL NEGATIVE UA PH DIPSTICK (test [...] Urine Source? Clean CatchDRUGS OF ABUSE SCREEN [id number] 05:28:00 Test Item Value Reference Range Comments [...] (test code=VALP) <3.0 mcg/mL 50.0-100.0 BASIC METABOLIC [id number] 05:10:00 Test Item Value Reference Range Comments [...] (test code=CA) 8.9 mg/dL 8.5-10.1 HEPATIC FUNCTION [id number] 05:10:00 Test Item Value Reference Range Comments [...] code=ALKP) range due to change in reagent. [id number] 05:10:00 Test Item Value Reference Range Comments ALCOHOL (test code=ALC) < 3 mg/dL 0.0-3.0 INTERPRETIVE DATA NOTE: POSITIVE SCREENING RESULTS SHOULD BE CONSIDERED PRESUMPTIVE.WHEN COLLECTED FOR MEDICAL PURPOSES ONLY. SPECIMEN WILL NOTBE COLLECTED BY CHAIN OF CUSTODY.IF A CONFIRMATION OF POSITIVE RESULTS IS DESIRED, ACONFIRMATION TEST MUST BE REQUESTED BY THE PHYSICIAN AT ANADDITIONAL CHARGE TO THE PATIENT. HCG SERUM [id number] 05:08:00 Test Item Value Reference Range Comments HCG SERUM QUAL (test NEGATIVE NEGATIVE This HCGQL test is NOT code=HCGQL) applicable for MALE patients.Check with nurse about probable order error.If Tumor Marker Test needed, nurse should order test "HCGTU"(Test #550.81448) -- [id number] 05:08:00 Test Item Value Reference Range Comments ACETAMINOPHEN (test code=ACET) < 10 mcg/mL 10-30 A RANGE OF 10-30 mcg/mL IS A THERAPEUTIC RANGE. TOXIC CONCENTRATIONS: >150 mcg/mL AT 4 HOURS AFTER INGESTION >=50 mcg/mL AT 12 HOURS AFTER INGESTION [id number] 05:08:00 Test Item Value Reference Range Comments SALICYLATE (test code=CLAUDIO) < 1.7 mg/dL 2.8-20.0 BASIC METABOLIC [id number] 05:04:00 Test Item Value Reference Range Comments [...] CALCIUM (test code=CA) mg/dL 8.5-10.1 HEPATIC FUNCTION [id number] 05:04:00 Test Item Value Reference Range Comments TOTAL PROTEIN (test code=PROT) gram/dL 6.4-8.2 ALBUMIN (test code=ALB) g/dL 3.4-5.0 GLOBULIN (test code=GLOB) gram/dL 2.7-4.2 ALBUMIN/GLOBULIN RATIO (test code=A/G) 0.75-1.50 BILIRUBIN TOTAL (test code=BILT) mg/dL 0.0-1.0 BILIRUBIN DIRECT (test code=BILD) mg/dL 0.0-0.20 SGOT/AST (test code=AST) IUnit/L 15-37 SGPT/ALT (test code=ALT) IUnit/L 12-78 ALKALINE PHOSPHATASE TOTAL (test code=ALKP) IUnit/L 45-117 [id number] 05:04:00 Test Item Value Reference Range Comments ALCOHOL (test code=ALC) mg/dL 0-3 HCG SERUM [id number] 05:00:00 Test Item Value Reference Range Comments HCG SERUM QUAL (test NEGATIVE NEGATIVE This HCGQL test is NOT code=HCGQL) applicable for MALE patients.Check with nurse about probable order error.If Tumor Marker Test needed, nurse should order test "HCGTU"(Test #550.19959) -- [id number] 05:00:00 Test Item Value Reference Range Comments ACETAMINOPHEN (test code=ACET) mcg/mL 10-30 [id number] 05:00:00 Test Item Value Reference Range Comments SALICYLATE (test code=CLAUDIO) mg/dL 2.8-20.0 URINALYSIS [id number] 04:59:00 Test Item Value Reference Range Comments [...] Urine Source? Clean CatchDRUGS OF ABUSE SCREEN [id number] 04:59:00 Test Item Value Reference Range Comments URN COCAINE (test code=COCAURN) <300 ng/mL URN CANNABINOIDS (test code=CANNABURN) <50 ng/mL URN AMPHETAMINE (test code=AMPHETURN) <1000 ng/mL URN BARBITURATE (test code=BARBITURN) <200 ng/mL URN BENZODIAZEPINE (test code=BENZOURN) <200 ng/mL URN OPIATES (test code=OPIATURN) <300 ng/mL URN PHENCYCLIDINE (PCP) (test code=PHENCURN) <25 ng/mL URN METHADONE (test code=METHAURN) <300 ng/mL Urine Source? Clean CatchCBC W/AUTO [id number] 10:50:00 Test Item Value Reference Range Comments [...] (test code=MDIFF) NO, ONLY SCAN NEEDED DIFFERENTIAL [id number] 10:50:00 Test Item Value Reference Range Comments STAIN ACCEPTABILITY (test code=STN STAIN ACCEPTABLE ACCEPTABLE) POLYCHROMASIA (test code=POLC) 1+ HYPOCHROMIA (test code=HYPO) 1+ POIKILOCYTOSIS (test code=POIK) 2+ ANISOCYTOSIS (test code=ANISO) 2+ MICROCYTOSIS (test code=MICR) 2+ TEAR DROP CELLS (test code=TEAR) 1+ ELLIPTOCYTES (test code=ELL) 1+ CRENATED CELLS (test code=CREN) 1+ PLATELET ESTIMATE (test code=PLTEST) ADEQUATE PLATELET MORPHOLOGY (test code=PLTMORPH) NORMAL CBC W/AUTO [id number] 09:44:00 Test Item Value Reference Range Comments [...] (test code=MDIFF) NO, ONLY SCAN NEEDED DIFFERENTIAL [id number] 09:44:00 Test Item Value Reference Range Comments STAIN ACCEPTABILITY (test code=STN ACCEPTABLE) CABOT RINGS (test code=CAB) MORPHOLOGY COMMENT (test code=MOC) PLATELET ESTIMATE (test code=PLTEST) PLATELET MORPHOLOGY (test code=PLTMORPH) CBC W/AUTO [id number] 09:44:00 Test Item Value Reference Range Comments [...] (test code=MDIFF) NO, ONLY SCAN NEEDED DIFFERENTIAL [id number] 09:44:00 Test Item Value Reference Range Comments STAIN ACCEPTABILITY (test code=STN ACCEPTABLE) CABOT RINGS (test code=CAB) MORPHOLOGY COMMENT (test code=MOC) PLATELET ESTIMATE (test code=PLTEST) PLATELET MORPHOLOGY (test code=PLTMORPH) CBC W/AUTO [id number] 09:44:00 Test Item Value Reference Range Comments [...] (test code=MDIFF) NO, ONLY SCAN NEEDED DIFFERENTIAL [id number] 09:44:00 Test Item Value Reference Range Comments STAIN ACCEPTABILITY (test code=STN ACCEPTABLE) MORPHOLOGY COMMENT (test code=MOC) PLATELET ESTIMATE (test code=PLTEST) PLATELET MORPHOLOGY (test code=PLTMORPH) CBC W/AUTO [id number] 09:44:00 Test Item Value Reference Range Comments [...] (test code=MDIFF) NO, ONLY SCAN NEEDED DIFFERENTIAL [id number] 09:44:00 Test Item Value Reference Range Comments STAIN ACCEPTABILITY (test code=STN ACCEPTABLE) CABOT RINGS (test code=CAB) MORPHOLOGY COMMENT (test code=MOC) PLATELET ESTIMATE (test code=PLTEST) PLATELET MORPHOLOGY (test code=PLTMORPH) CBC W/AUTO [id number] 06:36:00 Test Item Value Reference Range Comments [...] (test code=MDIFF) NO, ONLY SCAN NEEDED DIFFERENTIAL [id number] 06:36:00 Test Item Value Reference Range Comments STAIN ACCEPTABILITY (test code=STN STAIN ACCEPTABLE ACCEPTABLE) POLYCHROMASIA (test code=POLC) 1+ HYPOCHROMIA (test code=HYPO) 1+ POIKILOCYTOSIS (test code=POIK) 2+ ANISOCYTOSIS (test code=ANISO) 2+ MICROCYTOSIS (test code=MICR) 1+ MACROCYTOSIS (test code=MACR) 1+ OVALOCYTES (test code=OVAL) 1+ SCHISTOCYTES (test code=DAVEY) 1+ PLATELET ESTIMATE (test code=PLTEST) ADEQUATE PLATELET MORPHOLOGY (test code=PLTMORPH) NORMAL CBC W/AUTO [id number] 05:31:00 Test Item Value Reference Range Comments [...] (test code=MDIFF) NO, ONLY SCAN NEEDED DIFFERENTIAL [id number] 05:31:00 Test Item Value Reference Range Comments STAIN ACCEPTABILITY (test code=STN ACCEPTABLE) CABOT RINGS (test code=CAB) MORPHOLOGY COMMENT (test code=MOC) PLATELET ESTIMATE (test code=PLTEST) PLATELET MORPHOLOGY (test code=PLTMORPH) CBC W/AUTO [id number] 05:31:00 Test Item Value Reference Range Comments [...] (test code=MDIFF) NO, ONLY SCAN NEEDED DIFFERENTIAL [id number] 05:31:00 Test Item Value Reference Range Comments STAIN ACCEPTABILITY (test code=STN ACCEPTABLE) CABOT RINGS (test code=CAB) MORPHOLOGY COMMENT (test code=MOC) PLATELET ESTIMATE (test code=PLTEST) PLATELET MORPHOLOGY (test code=PLTMORPH) CBC W/AUTO [id number] 05:31:00 Test Item Value Reference Range Comments [...] (test code=MDIFF) NO, ONLY SCAN NEEDED DIFFERENTIAL [id number] 05:31:00 Test Item Value Reference Range Comments STAIN ACCEPTABILITY (test code=STN ACCEPTABLE) MORPHOLOGY COMMENT (test code=MOC) PLATELET ESTIMATE (test code=PLTEST) PLATELET MORPHOLOGY (test code=PLTMORPH) CBC W/AUTO [id number] 05:31:00 Test Item Value Reference Range Comments [...] (test code=MDIFF) NO, ONLY SCAN NEEDED DIFFERENTIAL [id number] 05:31:00 Test Item Value Reference Range Comments STAIN ACCEPTABILITY (test code=STN ACCEPTABLE) CABOT RINGS (test code=CAB) MORPHOLOGY COMMENT (test code=MOC) PLATELET ESTIMATE (test code=PLTEST) PLATELET MORPHOLOGY (test code=PLTMORPH) URINALYSIS [id number] 11:33:00 Test Item Value Reference Range Comments [...] FEW #/LPF FEW Urine Source? Clean CatchURINALYSIS [id number] 11:32:00 Test Item Value Reference Range Comments [...] Urine Source? Clean Catch- XR CHEST 1 [id number] 09:51:00 FAX: Catherine Arreguin MD [phone] [place]: St: ADM Name: BROOKS FORTE [facility] : 1975 Age/S: 43/F [address] Unit#: [id number] Loc: [id number].[address] [place] [address] Phys: Catherine Garcia MD Acct: [id number] Dis Date: Status: ADM IN PHONE #: [phone] Exam Date: 0948 FAX #: [phone] Reason: Leukocytosis EXAMS: CPT CODE: [id number] XR CHEST 1 V 90925 HISTORY: Leukocytosis. COMPARISON: April 04, 2010. No acute infiltrates, effusion or congestion is noted. The cardiac and mediastinal silhouette are within normal limits. IMPRESSION: No acute infiltrates, effusion or congestion. at 0951 Reported and signed by: Greg Ortiz M.D. CC : Catherine Garcia MD Technologist: Teressa Ashraf RT(R) Trnscrd Date/Time/By: ([id number]) : By: [email or web address] Orig Print D/T: S: 09/10/2018 (1191) PAGE 1 Signed ReportCBC W/AUTO [id number] 06:39:00 Test Item Value Reference Range Comments [...] (test code=MDIFF) NO, ONLY SCAN NEEDED DIFFERENTIAL [id number] 06:39:00 Test Item Value Reference Range Comments STAIN ACCEPTABILITY (test code=STN STAIN ACCEPTABLE ACCEPTABLE) HYPOCHROMIA (test code=HYPO) 1+ POIKILOCYTOSIS (test code=POIK) 2+ ANISOCYTOSIS (test code=ANISO) 2+ MICROCYTOSIS (test code=MICR) 2+ ELLIPTOCYTES (test code=ELL) 1+ PLATELET ESTIMATE (test code=PLTEST) ADEQUATE PLATELET MORPHOLOGY (test code=PLTMORPH) NORMAL CBC W/AUTO [id number] 06:16:00 Test Item Value Reference Range Comments [...] (test code=MDIFF) NO, ONLY SCAN NEEDED DIFFERENTIAL [id number] 06:16:00 Test Item Value Reference Range Comments STAIN ACCEPTABILITY (test code=STN ACCEPTABLE) CABOT RINGS (test code=CAB) MORPHOLOGY COMMENT (test code=MOC) PLATELET ESTIMATE (test code=PLTEST) PLATELET MORPHOLOGY (test code=PLTMORPH) CBC W/AUTO [id number] 06:16:00 Test Item Value Reference Range Comments [...] (test code=MDIFF) NO, ONLY SCAN NEEDED DIFFERENTIAL [id number] 06:16:00 Test Item Value Reference Range Comments STAIN ACCEPTABILITY (test code=STN ACCEPTABLE) MORPHOLOGY COMMENT (test code=MOC) PLATELET ESTIMATE (test code=PLTEST) PLATELET MORPHOLOGY (test code=PLTMORPH) CBC W/AUTO [id number] 06:16:00 Test Item Value Reference Range Comments [...] (test code=MDIFF) NO, ONLY SCAN NEEDED DIFFERENTIAL [id number] 06:16:00 Test Item Value Reference Range Comments STAIN ACCEPTABILITY (test code=STN ACCEPTABLE) MORPHOLOGY COMMENT (test code=MOC) PLATELET ESTIMATE (test code=PLTEST) PLATELET MORPHOLOGY (test code=PLTMORPH) CBC W/AUTO [id number] 06:16:00 Test Item Value Reference Range Comments [...] (test code=MDIFF) NO, ONLY SCAN NEEDED DIFFERENTIAL [id number] 06:16:00 Test Item Value Reference Range Comments STAIN ACCEPTABILITY (test code=STN ACCEPTABLE) CABOT RINGS (test code=CAB) MORPHOLOGY COMMENT (test code=MOC) PLATELET ESTIMATE (test code=PLTEST) PLATELET MORPHOLOGY (test code=PLTMORPH) CBC W/AUTO [id number] 11:46:00 Test Item Value Reference Range Comments [...] (test code=MDIFF) NO, ONLY SCAN NEEDED DIFFERENTIAL [id number] 11:46:00 Test Item Value Reference Range Comments STAIN ACCEPTABILITY (test code=STN STAIN ACCEPTABLE ACCEPTABLE) POLYCHROMASIA (test code=POLC) 1+ POIKILOCYTOSIS (test code=POIK) 2+ ANISOCYTOSIS (test code=ANISO) 2+ MICROCYTOSIS (test code=MICR) 2+ ELLIPTOCYTES (test code=ELL) 1+ ACANTHOCYTES (test code=ACAN) 1+ NONE PLATELET ESTIMATE (test code=PLTEST) ADEQUATE PLATELET MORPHOLOGY (test code=PLTMORPH) NORMAL CBC W/AUTO [id number] 11:03:00 Test Item Value Reference Range Comments [...] (test code=MDIFF) NO, ONLY SCAN NEEDED DIFFERENTIAL [id number] 11:03:00 Test Item Value Reference Range Comments STAIN ACCEPTABILITY (test code=STN ACCEPTABLE) CABOT RINGS (test code=CAB) MORPHOLOGY COMMENT (test code=MOC) PLATELET ESTIMATE (test code=PLTEST) PLATELET MORPHOLOGY (test code=PLTMORPH) CBC W/AUTO [id number] 11:03:00 Test Item Value Reference Range Comments [...] (test code=MDIFF) NO, ONLY SCAN NEEDED DIFFERENTIAL [id number] 11:03:00 Test Item Value Reference Range Comments STAIN ACCEPTABILITY (test code=STN ACCEPTABLE) CABOT RINGS (test code=CAB) MORPHOLOGY COMMENT (test code=MOC) PLATELET ESTIMATE (test code=PLTEST) PLATELET MORPHOLOGY (test code=PLTMORPH) CBC W/AUTO [id number] 11:03:00 Test Item Value Reference Range Comments [...] (test code=MDIFF) NO, ONLY SCAN NEEDED DIFFERENTIAL [id number] 11:03:00 Test Item Value Reference Range Comments STAIN ACCEPTABILITY (test code=STN ACCEPTABLE) MORPHOLOGY COMMENT (test code=MOC) PLATELET ESTIMATE (test code=PLTEST) PLATELET MORPHOLOGY (test code=PLTMORPH) CBC W/AUTO [id number] 11:03:00 Test Item Value Reference Range Comments [...] (test code=MDIFF) NO, ONLY SCAN NEEDED DIFFERENTIAL [id number] 11:03:00 Test Item Value Reference Range Comments STAIN ACCEPTABILITY (test code=STN ACCEPTABLE) CABOT RINGS (test code=CAB) MORPHOLOGY COMMENT (test code=MOC) PLATELET ESTIMATE (test code=PLTEST) PLATELET MORPHOLOGY (test code=PLTMORPH) - US PELVIS [id number] 20:39:00 Name: BROOKS FORTE [facility] : 1975 Age/S: 43 / F [address] [facility] Unit #: [id number] Loc: [place] [address] Phys: Catherine Garcia MD Acct: [id number] Dis Date: Status : ADM IN PHONE #: [phone] Exam Date: 09/07/20182008 FAX #: [phone] Reason: Menorrhagia,anemia EXAMS: CPTCODE: [id number] US PELVIS COMPLETE [id number] REASON FOR EXAM: Menorrhagia,anemia EXAM ORDER DATE: 09/07/2018 7:34 PM Attending M.DMemo: Catherine Garcia MD PROCEDURE: - US PELVIS [...] 1 Signed Report (CONTINUED) Name: BROOKS FORTE [facility] : 1975 Age/S: 43 / F [address] [facility] Unit #: [id number] Loc: [place] [address] Phys: Catherine Garcia MD Acct: [id number] Dis Date: Status: ADM IN PHONE #: [phone] Exam Date: 09/07/20182008 FAX #: [phone] Reason: Menorrhagia,anemia EXAMS: CPT CODE: [id number] US PELVIS COMPLETE [id number] < Continued> Simple cyst in the bilateral ovaries. These do not require rather evaluation. Left ovarian cyst with linear echogenicities which likely represent hemorrhagic products. Follow-up ultrasound in 6-12 weeks is recommended to assess for resolution. at 2039 Reported and signed by: Rojelio Mendiola MD CC: Catherine Garcia MD Technologist: Juan Crowley Trnscb Date/Time: 2018 (2038) [id number] Orig Print D/T: S: 09/07/2018 (2041 ) Probe: PAGE 2 Signed ReportCBC W/AUTO [id number] 10:27:00 Test Item Value Reference Range Comments [...] (test NO, ONLY SCAN NEEDED code=MDIFF) DIFFERENTIAL [id number] 10:27:00 Test Item Value Reference Range Comments STAIN ACCEPTABILITY (test code=STN STAIN ACCEPTABLE ACCEPTABLE) POIKILOCYTOSIS (test code=POIK) 2+ ANISOCYTOSIS (test code=ANISO) 2+ MICROCYTOSIS (test code=MICR) 2+ PLATELET ESTIMATE (test code=PLTEST) ADEQUATE PLATELET MORPHOLOGY (test code=PLTMORPH) NORMAL CBC W/AUTO [id number] 10:02:00 Test Item Value Reference Range Comments [...] (test NO, ONLY SCAN NEEDED code=MDIFF) DIFFERENTIAL [id number] 10:02:00 Test Item Value Reference Range Comments STAIN ACCEPTABILITY (test code=STN ACCEPTABLE) MORPHOLOGY COMMENT (test code=MOC) PLATELET ESTIMATE (test code=PLTEST) PLATELET MORPHOLOGY (test code=PLTMORPH) CBC W/AUTO [id number] 10:01:00 Test Item Value Reference Range Comments [...] (test NO, ONLY SCAN NEEDED code=MDIFF) DIFFERENTIAL [id number] 10:01:00 Test Item Value Reference Range Comments STAIN ACCEPTABILITY (test code=STN ACCEPTABLE) CABOT RINGS (test code=CAB) MORPHOLOGY COMMENT (test code=MOC) PLATELET ESTIMATE (test code=PLTEST) PLATELET MORPHOLOGY (test code=PLTMORPH) CBC W/AUTO [id number] 10:01:00 Test Item Value Reference Range Comments [...] (test NO, ONLY SCAN NEEDED code=MDIFF) DIFFERENTIAL [id number] 10:01:00 Test Item Value Reference Range Comments STAIN ACCEPTABILITY (test code=STN ACCEPTABLE) MORPHOLOGY COMMENT (test code=MOC) PLATELET ESTIMATE (test code=PLTEST) PLATELET MORPHOLOGY (test code=PLTMORPH) CBC W/AUTO [id number] 10:01:00 Test Item Value Reference Range Comments [...] (test NO, ONLY SCAN NEEDED code=MDIFF) DIFFERENTIAL [id number] 10:01:00 Test Item Value Reference Range Comments STAIN ACCEPTABILITY (test code=STN ACCEPTABLE) CABOT RINGS (test code=CAB) MORPHOLOGY COMMENT (test code=MOC) PLATELET ESTIMATE (test code=PLTEST) PLATELET MORPHOLOGY (test code=PLTMORPH) CBC W/AUTO [id number] 02:43:00 Test Item Value Reference Range Comments [...] (test code=MDIFF) NO, ONLY SCAN NEEDED DIFFERENTIAL [id number] 02:43:00 Test Item Value Reference Range Comments STAIN ACCEPTABILITY (test code=STN STAIN ACCEPTABLE ACCEPTABLE) POLYCHROMASIA (test code=POLC) 1+ HYPOCHROMIA (test code=HYPO) 2+ POIKILOCYTOSIS (test code=POIK) 1+ ANISOCYTOSIS (test code=ANISO) 3+ MICROCYTOSIS (test code=MICR) 3+ ELLIPTOCYTES (test code=ELL) 1+ PLATELET ESTIMATE (test code=PLTEST) ADEQUATE PLATELET MORPHOLOGY (test code=PLTMORPH) NORMAL COMPREHENSIVE METABOLIC [id number] 02:29:00 Test Item Value Reference Range Comments [...] due to change in reagent. THYROID STIMULATING [id number] 02:29:00 Test Item Value Reference Range Comments THYROID STIMULATING HORMONE 1.140 uIU/mL 0.36-3.74 TSH REFERENCE RANGES: (test code=TSH) EUTHYROID: 0.35 - 4.3 mIU/mL HYPO : > 5.5 mIU/mL HYPER : < 0.35 mIU/mL COMPREHENSIVE METABOLIC [id number] 02:09:00 Test Item Value Reference Range Comments [...] TOTAL (test code=ALKP) IUnit/L 45-117 THYROID STIMULATING [id number] 02:09:00 Test Item Value Reference Range Comments THYROID STIMULATING HORMONE (test code=TSH) uIU/mL 0.36-3.74 CBC W/AUTO [id number] 02:02:00 Test Item Value Reference Range Comments [...] (test code=MDIFF) NO, ONLY SCAN NEEDED DIFFERENTIAL [id number] 02:02:00 Test Item Value Reference Range Comments STAIN ACCEPTABILITY (test code=STN ACCEPTABLE) CABOT RINGS (test code=CAB) MORPHOLOGY COMMENT (test code=MOC) PLATELET ESTIMATE (test code=PLTEST) PLATELET MORPHOLOGY (test code=PLTMORPH) CBC W/AUTO [id number] 02:02:00 Test Item Value Reference Range Comments [...] (test code=MDIFF) NO, ONLY SCAN NEEDED DIFFERENTIAL [id number] 02:02:00 Test Item Value Reference Range Comments STAIN ACCEPTABILITY (test code=STN ACCEPTABLE) CABOT RINGS (test code=CAB) MORPHOLOGY COMMENT (test code=MOC) PLATELET ESTIMATE (test code=PLTEST) PLATELET MORPHOLOGY (test code=PLTMORPH) CBC W/AUTO [id number] 02:02:00 Test Item Value Reference Range Comments [...] (test code=MDIFF) NO, ONLY SCAN NEEDED DIFFERENTIAL [id number] 02:02:00 Test Item Value Reference Range Comments STAIN ACCEPTABILITY (test code=STN ACCEPTABLE) MORPHOLOGY COMMENT (test code=MOC) PLATELET ESTIMATE (test code=PLTEST) PLATELET MORPHOLOGY (test code=PLTMORPH) CBC W/AUTO [id number] 02:02:00 Test Item Value Reference Range Comments [...] (test code=MDIFF) NO, ONLY SCAN NEEDED DIFFERENTIAL [id number] 02:02:00 Test Item Value Reference Range Comments STAIN ACCEPTABILITY (test code=STN ACCEPTABLE) CABOT RINGS (test code=CAB) MORPHOLOGY COMMENT (test code=MOC) PLATELET ESTIMATE (test code=PLTEST) PLATELET MORPHOLOGY (test code=PLTMORPH) [id number] 21:10:00 Test Item Value Reference Range Comments PHOSPHORUS (test code=PHOS) 4.0 mg/dL 2.5-4.9 [id number] 21:10:00 Test Item Value Reference Range Comments MAGNESIUM (test code=MAG) 2.2 mg/dL 1.8-2.4 VITAMIN [id number] 21:10:00 Test Item Value Reference Range Comments VITAMIN B12 (test code=VITB12) 327 pg/mL 193-986 FOLIC [id number] 21:10:00 Test Item Value Reference Range Comments FOLIC ACID (test code=FOL) 54.3 ng/mL 3.10-17.50 URINALYSIS [id number] 20:54:00 Test Item Value Reference Range Comments UA COLOR (test code=COLU) YELLOW YELLOW UA APPEARANCE (test code=APPU) CLEAR CLEAR UA GLUCOSE DIPSTICK (test code=DGLUU) NEGATIVE mg/dL NEGATIVE UA BILIRUBIN DIPSTICK (test code=BILU) NEGATIVE mg/dL NEGATIVE UA KETONE DIPSTICK (test code=KETU) 20 (1+) mg/dL NEGATIVE UA SPECIFIC GRAVITY (test code=SGU) 1.028 1.001-1.035 UA BLOOD DIPSTICK (test code=PRASHANTH) Negative mg/dL NEGATIVE UA PH DIPSTICK (test code=ROGRES) 6.0 5.0-8.0 UA PROTEIN DIPSTICK (test code=PROU) [...] #/LPF FEW Urine Source? Clean CatchUR HCG [id number] 20:54:00 Test Item Value Reference Range Comments UR HCG QUAL (test NEGATIVE This HCGQL test is NOT applicable code=HCGQLU) for MALE patients.Check with nurse about probable order error.If Tumor Marker Test needed, nurse should order test "HCGTU"(Test #550.99831) Urine Source? Clean CatchDRUGS OF ABUSE SCREEN [id number] 20:54:00 Test Item Value Reference Range Comments [...] <300 ng/mL code=METHAURN) Urine Source? Clean CatchPROTHROMBIN [id number] 20:51:00 Test Item Value Reference Range Comments [...] (2.5-3.5) IS PATIENT ON ANTICOAGULANTS? NTHROMBOPLASTIN TIME [id number] 20:51:00 Test Item Value Reference Range Comments THROMBOPLASTIN TIME PARTIAL (test code=PTT) 31.3 seconds 25.0-36.5 IS PATIENT ON ANTICOAGULANTS? NFE W/TOTAL IRON BINDING CAP.[id number] 20:30:00 Test Item Value Reference Range Comments SERUM IRON (test code=IRON) 11 ug/dL 50-175 TOTAL IRON BINDING CAPACITY (test code=TIBC) 437 mcg/dL 250-450 IRON SATURATION (test code=FESAT) 2.52 % 13-45 [id number] 20:30:00 Test Item Value Reference Range Comments FERRITIN (test code=ELAINE) 3 ng/mL 8-388 [id number] 20:25:00 Test Item Value Reference Range Comments AMMONIA (test code=AMM) 19 umol/L 11-32 URINALYSIS [id number] 20:21:00 Test Item Value Reference Range Comments [...] #/LPF FEW Urine Source? Clean CatchUR HCG [id number] 20:21:00 Test Item Value Reference Range Comments UR HCG QUAL (test NEGATIVE This HCGQL test is NOT applicable code=HCGQLU) for MALE patients.Check with nurse about probable order error.If Tumor Marker Test needed, nurse should order test "HCGTU"(Test #550.84271) Urine Source? Clean CatchDRUGS OF ABUSE SCREEN [id number] 20:21:00 Test Item Value Reference Range Comments URN COCAINE (test code=COCAURN) <300 ng/mL URN CANNABINOIDS (test code=CANNABURN) <50 ng/mL URN AMPHETAMINE (test code=AMPHETURN) <1000 ng/mL URN BARBITURATE (test code=BARBITURN) <200 ng/mL URN BENZODIAZEPINE (test code=BENZOURN) <200 ng/mL URN OPIATES (test code=OPIATURN) <300 ng/mL URN PHENCYCLIDINE (PCP) (test code=PHENCURN) <25 ng/mL URN METHADONE (test code=METHAURN) <300 ng/mL Urine Source? Clean CatchURINALYSIS [id number] 20:01:00 Test Item Value Reference Range Comments [...] #/LPF FEW Urine Source? Clean CatchUR HCG [id number] 20:01:00 Test Item Value Reference Range Comments UR HCG QUAL (test code=HCGQLU) Urine Source? Clean CatchDRUGS OF ABUSE SCREEN [id number] 20:01:00 Test Item Value Reference Range Comments [...] (test code=CK) 51 IUnit/L 26-208 BASIC METABOLIC [id number] 17:18:00 Test Item Value Reference Range Comments [...] (test code=CA) 8.7 mg/dL 8.5-10.1 HEPATIC FUNCTION [id number] 17:18:00 Test Item Value Reference Range Comments [...] due to change in reagent. HCG SERUM [id number] 17:18:00 Test Item Value Reference Range Comments HCG SERUM QUAL (test NEGATIVE NEGATIVE This HCGQL test is NOT code=HCGQL) applicable for MALE patients.Check with nurse about probable order error.If Tumor Marker Test needed, nurse should order test "HCGTU"(Test #550.67596) -- [id number] 17:18:00 Test Item Value Reference Range Comments ALCOHOL (test code=ALC) 5 mg/dL 0.0-3.0 INTERPRETIVE DATA NOTE: POSITIVE SCREENING RESULTS SHOULD BE CONSIDERED PRESUMPTIVE.WHEN COLLECTED FOR MEDICAL PURPOSES ONLY. SPECIMEN WILL NOTBE COLLECTED BY CHAIN OF CUSTODY.IF A CONFIRMATION OF POSITIVE RESULTS IS DESIRED, ACONFIRMATION TEST MUST BE REQUESTED BY THE PHYSICIAN AT ANADDITIONAL CHARGE TO THE PATIENT. BASIC METABOLIC [id number] 17:03:00 Test Item Value Reference Range Comments [...] CALCIUM (test code=CA) mg/dL 8.5-10.1 HEPATIC FUNCTION [id number] 17:03:00 Test Item Value Reference Range Comments TOTAL PROTEIN (test code=PROT) gram/dL 6.4-8.2 ALBUMIN (test code=ALB) g/dL 3.4-5.0 GLOBULIN (test code=GLOB) gram/dL 2.7-4.2 ALBUMIN/GLOBULIN RATIO (test code=A/G) 0.75-1.50 BILIRUBIN TOTAL (test code=BILT) mg/dL 0.0-1.0 BILIRUBIN DIRECT (test code=BILD) mg/dL 0.0-0.20 SGOT/AST (test code=AST) IUnit/L 15-37 SGPT/ALT (test code=ALT) IUnit/L 12-78 ALKALINE PHOSPHATASE TOTAL (test code=ALKP) IUnit/L 45-117 HCG SERUM [id number] 17:03:00 Test Item Value Reference Range Comments HCG SERUM QUAL (test NEGATIVE NEGATIVE This HCGQL test is NOT code=HCGQL) applicable for MALE patients.Check with nurse about probable order error.If Tumor Marker Test needed, nurse should order test "HCGTU"(Test #550.92780) -- [id number] 17:03:00 Test Item Value Reference Range Comments ALCOHOL (test code=ALC) mg/dL 0-3 BASIC METABOLIC [id number] 17:00:00 Test Item Value Reference Range Comments [...] CALCIUM (test code=CA) mg/dL 8.5-10.1 HEPATIC FUNCTION [id number] 17:00:00 Test Item Value Reference Range Comments TOTAL PROTEIN (test code=PROT) gram/dL 6.4-8.2 ALBUMIN (test code=ALB) g/dL 3.4-5.0 GLOBULIN (test code=GLOB) gram/dL 2.7-4.2 ALBUMIN/GLOBULIN RATIO (test code=A/G) 0.75-1.50 BILIRUBIN TOTAL (test code=BILT) mg/dL 0.0-1.0 BILIRUBIN DIRECT (test code=BILD) mg/dL 0.0-0.20 SGOT/AST (test code=AST) IUnit/L 15-37 SGPT/ALT (test code=ALT) IUnit/L 12-78 ALKALINE PHOSPHATASE TOTAL (test code=ALKP) IUnit/L 45-117 HCG SERUM [id number] 17:00:00 Test Item Value Reference Range Comments HCG SERUM QUAL (test NEGATIVE NEGATIVE This HCGQL test is NOT code=HCGQL) applicable for MALE patients.Check with nurse about probable order error.If Tumor Marker Test needed, nurse should order test "HCGTU"(Test #550.81865) -- [id number] 17:00:00 Test Item Value Reference Range Comments ALCOHOL (test code=ALC) mg/dL 0-3 CBC W/O [id number] 16:52:00 Test Item Value Reference Range Comments [...]
[2019-04-26] MEDS ORDERED: NA CHLORIDE 0.9% 1,000 ML ONE (20:05)
[2019-04-26 20:07] LABS: Urine Blood TRACE (NEG); Urine Glucose NEGATIVE (NEG); Urine Protein NEGATIVE (NEG); Urine pH 5.5 (5.0-7.0)
[2019-04-26 20:33] LABS: Absolute Lymphocytes (CBC) 2.6 K/uL (0.7-4.9); Basophils % 0.8 % (0-1.3); Hematocrit 31.6 % (36.0-45.0); MPV 7.5 fL (7.6-11.3); RBC Red Blood Cell Count 3.91 M/uL (3.86-4.86)
[2019-04-26 20:47] LABS: BUN Blood Urea Nitrogen 10 mg/dL (7-18); Bicarbonate 28 mmol/L (21-32); Glucose Level 103 mg/dL (74-106); Potassium 3.9 mmol/L (3.5-5.1); Sodium Level 141 mmol/L (136-145)
--- NOTE | 2019-04-26 21:05 | ER ---
Nurse's Notes [facility] Name: Gi Bentley Age: 44 yrs Sex: Female : 1975 Arrival Date: 04/26/2019 Time: 19:17 Bed 5 Private MD: Diagnosis: Dizziness. Uterine fibroids Presentation: 04/25 19:18 Chief complaint: EMS states: "the pt is reporting that she thinks her blood count is jd3 low. she has similar symptoms as last time with a metallic taste and a dizzy feeling. she also is reporting some vaginal bleeding.". Coronavirus screen: The patient has NOT traveled to a country currently being monitored by the [facility] within the last 14 days. The patient has NOT had contact with any known and/or suspected case of coronavirus. Proceed with normal triage procedures. Ebola Screen: Patient negative for fever greater than or equal to 101.5 degrees Fahrenheit, and additional compatible Ebola Virus Disease symptoms. Initial Sepsis Screen: Does the patient meet any 2 criteria? No. Patient's initial sepsis screen is negative. Does the patient have a suspected source of infection? No. Patient's initial sepsis screen is negative. Risk Assessment: Do you want to hurt yourself or someone else? Patient reports no desire to harm self or others. 19:18 Acuity: FIDE 3 j 19:18 Method Of Arrival: EMS: [facility] 19:18 Transition of care: patient was received from another setting of care (rehabilitation [facility] facility). 19:24 Onset of symptoms was April 26, 2019. jd3 19:27 Care prior to arrival: Glucose check: 78. 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: 22:08 LMP N/A - Irregular menses j Historical: - Allergies: 19:24 No Known Allergies; jd3 - Home Meds: 19:24 fluoxetine 20 mg Oral tab 1 tab once daily [Active]; hydroxyzine pamoate 100 mg Oral jd3 cap 1 cap three times a day [Active]; naltrexone 50 mg Oral tab 1 tab once daily [Active]; olanzapine 20 mg Oral tab 1 tab once daily [Active]; trazodone 100 mg Oral tab 1 tab nightly [Active]; gabapentin 300 mg oral cap 1 cap 3 times per day [Active]; ferrous sulfate 325 mg (65 mg iron) Oral tab [Active]; - PMHx: 19:24 Bipolar disorder; Anxiety; Schizophrenia; jd3 - PSHx: 19:24 None; jd3 - Immunization history:: Adult Immunizations up to date. - Social history:: Smoking status: Patient reports the use of cigarette tobacco products, smokes one pack cigarettes per day. Screenin:24 Abuse screen: Denies threats or abuse. Nutritional screening: No deficits noted. jd3 Tuberculosis screening: No symptoms or risk factors identified. Fall Risk Ambulatory Aid- None/Bed Rest/Nurse Assist (0 pts). Gait- Normal/Bed Rest/Wheelchair (0 pts) Mental Status- Oriented to own ability (0 pts). Total Crook Fall Scale indicates No Risk (0-24 pts). Assessment: 19:28 General: Appears in no apparent distress. comfortable, well groomed, Behavior is calm, jd3 cooperative, appropriate for age. Pain: Complains of pain in right lower quadrant and left lower quadrant Pain currently is 8 out of 10 on a pain scale. Quality of pain is described as aching, crampy, heavy, pressure, Pain began 2 hours ago. Neuro: Level of Consciousness is awake, alert, obeys commands, Oriented to person, place, time, situation. Cardiovascular: Heart tones S1 S2 present Capillary refill < 3 seconds Patient's skin is warm and dry. Respiratory: Airway is patent Trachea midline Respiratory effort is even, unlabored, Respiratory pattern is regular, symmetrical, Breath sounds are clear bilaterally. GI: Abdomen is flat, non-distended, Bowel sounds present X 4 quads. Abd is soft X 4 quads Abdomen is tender to palpation in right lower quadrant and left lower quadrant. : Reports states" I was recently diagnosed with a UTI about a week ago and I am also currently passing large clots". EENT: No signs and/or symptoms were reported regarding the EENT system. Derm: Skin is intact, is healthy with good turgor, Skin is dry, Skin is normal, Skin temperature is warm. Musculoskeletal: Circulation, motion, and sensation intact. Range of motion: intact in all extremities. 20:55 Reassessment: Patient appears in no apparent distress at this time. Patient and/or jd3 family updated on plan of care and expected duration. Pain level reassessed. Patient is alert, oriented x 3, equal unlabored respirations, skin warm/dry/pink. patient states" I feel like the room is spinning and I am extremely dizzy but I'm ok" denies any nausea at this time Patient denies pain at this time. 21:54 Reassessment: Patient appears in no apparent distress at this time. Patient and/or jd3 family updated on plan of care and expected duration. Pain level reassessed. Patient is alert, oriented x 3, equal unlabored respirations, skin warm/dry/pink. Patient denies pain at this time. General: Appears comfortable. Neuro: Level of Consciousness is awake, alert, obeys commands. Cardiovascular:. Respiratory: Respiratory effort is even, unlabored, Respiratory pattern is regular, symmetrical. Vital Signs: 19:18 BP 119 / 81; Pulse 70; Resp 17; Temp 98.2; Pulse Ox 100% on R/A; Weight 58.97 kg; ll1 Height 5 ft. 2 in. (157.48 cm); Pain 8/10; 20:57 BP 96 / 52; Pulse 74; Resp 17; Pulse Ox 98% on R/A; Pain 0/10; jd3 21:56 BP 107 / 68; Pulse 73; Resp 17; Pulse Ox 99% on R/A; Pain 0/10; jd3 19:18 Body Mass Index 23.78 (58.97 kg, 157.48 cm) ll1 ED Course: 19:17 Patient arrived in ED. jd3 19:18 Red Kennedy MD is Attending Physician. pkl 19:18 Rodolfo Chandler, DAHLIA is Primary Nurse. jd3 19:20 Triage completed. jd3 19:24 Arm band placed on. jd3 19:24 Patient has correct armband on for positive identification. Bed in low position. Call jd3 light in reach. Side rails up X 1. 20:00 Inserted saline lock: 20 gauge in right antecubital area, using aseptic technique. jd3 placed by Marcy SULLIVAN. 20:24 Inserted saline lock: 22 gauge in left forearm, using aseptic technique. Blood ll1 collected. 22:06 No provider procedures requiring assistance completed. IV discontinued, intact, jd3 bleeding controlled, No redness/swelling at site. Pressure dressing applied. Administered Medications: 20:23 Drug: NS 0.9% 1000 ml Route: IV; Rate: 125 ml/hr; Site: right antecubital; jd3 21:59 Follow up: Response: No adverse reaction; IV Status: Order to discontinue infusion; IV jd3 Intake: 175ml ; patient to be discharged Intake: 21:59 IV: 175ml; Total: 175ml. jd3 Outcome: 21:05 Discharge ordered by MD. moran 22:07 Discharged to Rehab Facility jd3 22:07 Condition: stable 22:07 Discharge instructions given to patient, Instructed on discharge instructions, follow up and referral plans. Demonstrated understanding of instructions, follow-up care. 22:09 Patient left the ED. jd3 Signatures: Red Kennedy MD MD pkl Davies, Jonathon, RN RN jd3 Nelson Gayle RN RN ll1 Corrections: (The following items were deleted from the chart) 21:58 19:28 : Reports states" I was recently diagnosed with a UTI about a week ago" jpuma jd3
--- NOTE | 2019-04-26 21:05 | EDPHYS ---
Physician Documentation [facility] Name: Gi Bentley Age: 44 yrs Sex: Female : 1975 Arrival Date: 04/26/2019 Time: 19:17 Bed 5 Private MD: ED Physician Red Kennedy HPI: 04/25 19:33 This 44 yrs old Female presents to ER via EMS with unknown complaint. pkl 19:33 The patient presents with lightheadedness. Onset: The symptoms/episode began/occurred pkl today. The patient has been recently seen at the [facility] Emergency Department, last month, for similar complaints Said she was transfused 2 units for anemia for heavy vaginal bleeding from uterine fibroids. Pending appointment to see Registered Pharmacist.. 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 - Irregular menses jd3 Historical: - Allergies: 19:24 No Known Allergies; jd3 - Home Meds: 19:24 fluoxetine 20 mg Oral tab 1 tab once daily [Active]; hydroxyzine pamoate 100 mg Oral jd3 cap 1 cap three times a day [Active]; naltrexone 50 mg Oral tab 1 tab once daily [Active]; olanzapine 20 mg Oral tab 1 tab once daily [Active]; trazodone 100 mg Oral tab 1 tab nightly [Active]; gabapentin 300 mg oral cap 1 cap 3 times per day [Active]; ferrous sulfate 325 mg (65 mg iron) Oral tab [Active]; - PMHx: 19:24 Bipolar disorder; Anxiety; Schizophrenia; jd3 - PSHx: 19:24 None; jd3 - Immunization history:: Adult Immunizations up to date. - Social history:: Smoking status: Patient reports the use of cigarette tobacco products, smokes one pack cigarettes per day. ROS: 19:33 Eyes: Negative for injury, pain, redness, and discharge, ENT: Negative for injury, pkl pain, and discharge, Neck: Negative for injury, pain, and swelling, Cardiovascular: Negative for chest pain, palpitations, and edema, Respiratory: Negative for shortness of breath, cough, wheezing, and pleuritic chest pain, Abdomen/GI: Negative for abdominal pain, nausea, vomiting, diarrhea, and constipation, Back: Negative for injury and pain, : Negative for injury, bleeding, discharge, and swelling, MS/Extremity: Negative for injury and deformity, Skin: Negative for injury, rash, and discoloration. 19:33 Neuro: Positive for dizziness. Exam: 19:33 Head/Face: Normocephalic, atraumatic. Eyes: Pupils equal round and reactive to light, pkl extra-ocular motions intact. Lids and lashes normal. Conjunctiva and sclera are non-icteric and not injected. Cornea within normal limits. Periorbital areas with no swelling, redness, or edema. ENT: Nares patent. No nasal discharge, no septal abnormalities noted. Tympanic membranes are normal and external auditory canals are clear. Oropharynx with no redness, swelling, or masses, exudates, or evidence of obstruction, uvula midline. Mucous membranes moist. Neck: Trachea midline, no thyromegaly or masses palpated, and no cervical lymphadenopathy. Supple, full range of motion without nuchal rigidity, or vertebral point tenderness. No Meningismus. Chest/axilla: Normal chest wall appearance and motion. Nontender with no deformity. No lesions are appreciated. Cardiovascular: Regular rate and rhythm with a normal S1 and S2. No gallops, murmurs, or rubs. Normal PMI, no JVD. No pulse deficits. Respiratory: Lungs have equal breath sounds bilaterally, clear to auscultation and percussion. No rales, rhonchi or wheezes noted. No increased work of breathing, no retractions or nasal flaring. Abdomen/GI: Soft, non-tender, with normal bowel sounds. No distension or tympany. No guarding or rebound. No evidence of tenderness throughout. Back: No spinal tenderness. No costovertebral tenderness. Full range of motion. Skin: Warm, dry with normal turgor. Normal color with no rashes, no lesions, and no evidence of cellulitis. MS/ Extremity: Pulses equal, no cyanosis. Neurovascular intact. Full, normal range of motion. Neuro: Awake and alert, GCS 15, oriented to person, place, time, and situation. Cranial nerves II-XII grossly intact. Motor strength 5/5 in all extremities. Sensory grossly intact. Cerebellar exam normal. Normal gait. Vital Signs: 19:18 BP 119 / 81; Pulse 70; Resp 17; Temp 98.2; Pulse Ox 100% on R/A; Weight 58.97 kg; ll1 Height 5 ft. 2 in. (157.48 cm); Pain 8/10; 20:57 BP 96 / 52; Pulse 74; Resp 17; Pulse Ox 98% on R/A; Pain 0/10; jd3 21:56 BP 107 / 68; Pulse 73; Resp 17; Pulse Ox 99% on R/A; Pain 0/10; jd3 19:18 Body Mass Index 23.78 (58.97 kg, 157.48 cm) ll1 MDM: 19:18 Patient medically screened. pkl 21:00 Data reviewed: vital signs, nurses notes, lab test result(s). ED course: Discussed lab. pkl results with patient. Advised patient to make appointment with Registered Pharmacist regarding her vaginal bleeding and uterine fibroids. Patient understood instructions. 04/25 19:32 Order name: CBC with Diff pkl 04/25 19:32 Order name: Chem 7 pkl 04/25 20:00 Order name: Urine Dipstick--Ancillary (enter results) ar5 04/25 20:00 Order name: Urine --Ancillary (enter results) ar5 04/25 20:08 Order name: Urine --Ancillary; Complete Time: 20:12 EDMS 04/25 20:08 Order name: Urine Dipstick-Ancillary; Complete Time: 20:12 EDMS 04/25 20:40 Order name: Urine Dipstick-Ancillary (obtain specimen); Complete Time: 20:40 jd3 04/25 20:40 Order name: Urine Test (obtain specimen); Complete Time: 20:40 jd3 04/25 20:49 Order name: Basic Metabolic Panel; Complete Time: 20:59 EDMS 04/25 20:55 Order name: CBC with Automated Diff; Complete Time: 22:06 EDMS 04/25 21:36 Order name: CBC Smear Scan; Complete Time: 22:06 EDMS Administered Medications: 20:23 Drug: NS 0.9% 1000 ml Route: IV; Rate: 125 ml/hr; Site: right antecubital; jd3 21:59 Follow up: Response: No adverse reaction; IV Status: Order to discontinue infusion; IV jd3 Intake: 175ml ; patient to be discharged Disposition: 04/26/19 21:05 Discharged to Home. Impression: Dizziness. Uterine fibroids. - Condition is Stable. - Medication Reconciliation Form, Thank You Letter, Antibiotic Education, Prescription Opioid Use form. - Follow up: Private Physician; When: 2 - 3 days; Reason: Re-evaluation by your physician. - Problem is new. - Symptoms have improved. Signatures: Dispatcher [employer] Red Coleman MD MD pkl Robert Ramos, WELL LOGGING CAPTAIN-C WELL LOGGING CAPTAIN-Cla1 Rodolfo Chandler, RN RN jd3 Corrections: (The following items were deleted from the chart) 22:09 21:05 04/26/2019 21:05 Discharged to Home. Impression: Dizziness. Uterine fibroids. jd3 Condition is Stable. Forms are Medication Reconciliation Form, Thank You Letter, Antibiotic Education, Prescription Opioid Use. Follow up: Private Physician; When: 2 - 3 days; Reason: Re-evaluation by your physician. Problem is new. Symptoms have improved. pkl
[2019-04-26 21:29] LABS: Anisocytosis 3+; Blood Morphology Comment NOTED (NOT SEEN); Platelet Estimate ADEQ; Poikilocytosis 2+; White Blood Cell Scan OK
[2019-04-26 21:34] LABS: Ovalocytes 2+; Teardrop Cell FEW
[2019-04-26 22:23] VITALS: TEMP 98.2
[2019-04-26 22:26] VITALS: BP 107/68; O2SAT 99
== END 2019-04-26 22:09 | disposition home or self-care (01) ==
LOC: ER 19:16
DX: D25.9 Leiomyoma of uterus, unspecified (principal); R42 Dizziness and giddiness; F17.210 Nicotine dependence, cigarettes, uncomplicated
CPT/HCPCS: 36415; 80048; 81003; 81025; 85025; 96360; 96361; 99284; J7030

== ENCOUNTER 2019-05-03 18:30 | Emergency (ER) | payer SELFPAY ==
--- OUTSIDE RECORDS SUMMARY | 2019-05-03 18:38 | XMS REPORT ---
:1975 [facility] [address] [place] [address] Care Team Providers Name Role Phone Unavailable [...] Clinicians Facility Department ID 2017-03-25 2017-03-25 Emergency [facility] [id number] 21:46:10 21:46:10 2017-03-25 2017-03-25 Emergency [facility] [id number] 20:41:10 20:41:10 Results Test Description Test Time [...] (test code=CA) 9.0 mg/dL 8.5-10.1 HEPATIC FUNCTION [id number] 15:25:00 Test Item Value Reference Range Comments [...] due to change in reagent. HCG SERUM [id number] 15:25:00 Test Item Value Reference Range Comments HCG SERUM QUAL (test NEGATIVE NEGATIVE This HCGQL test is NOT code=HCGQL) applicable for MALE patients.Check with nurse about probable order error.If Tumor Marker Test needed, nurse should order test "HCGTU"(Test #550.02935) -- [id number] 15:25:00 Test Item Value Reference Range Comments ALCOHOL (test code=ALC) < 3 mg/dL 0.0-3.0 INTERPRETIVE DATA NOTE: POSITIVE SCREENING RESULTS SHOULD BE CONSIDERED PRESUMPTIVE.WHEN COLLECTED FOR MEDICAL PURPOSES ONLY. SPECIMEN WILL NOTBE COLLECTED BY CHAIN OF CUSTODY.IF A CONFIRMATION OF POSITIVE RESULTS IS DESIRED, ACONFIRMATION TEST MUST BE REQUESTED BY THE PHYSICIAN AT ANADDITIONAL CHARGE TO THE PATIENT. URINALYSIS [id number] 15:25:00 Test Item Value Reference Range Comments [...] Urine Source? Clean CatchDRUGS OF ABUSE SCREEN [id number] 15:25:00 Test Item Value Reference Range Comments [...] ng/mL code=METHAURN) Urine Source? Clean CatchBASIC METABOLIC [id number] 15:14:00 Test Item Value Reference Range Comments [...] CALCIUM (test code=CA) mg/dL 8.5-10.1 HEPATIC FUNCTION [id number] 15:14:00 Test Item Value Reference Range Comments TOTAL PROTEIN (test code=PROT) gram/dL 6.4-8.2 ALBUMIN (test code=ALB) g/dL 3.4-5.0 GLOBULIN (test code=GLOB) gram/dL 2.7-4.2 ALBUMIN/GLOBULIN RATIO (test code=A/G) 0.75-1.50 BILIRUBIN TOTAL (test code=BILT) mg/dL 0.0-1.0 BILIRUBIN DIRECT (test code=BILD) mg/dL 0.0-0.20 SGOT/AST (test code=AST) IUnit/L 15-37 SGPT/ALT (test code=ALT) IUnit/L 12-78 ALKALINE PHOSPHATASE TOTAL (test code=ALKP) IUnit/L 45-117 HCG SERUM [id number] 15:14:00 Test Item Value Reference Range Comments HCG SERUM QUAL (test NEGATIVE NEGATIVE This HCGQL test is NOT code=HCGQL) applicable for MALE patients.Check with nurse about probable order error.If Tumor Marker Test needed, nurse should order test "HCGTU"(Test #550.02556) -- [id number] 15:14:00 Test Item Value Reference Range Comments ALCOHOL (test code=ALC) mg/dL 0-3 BASIC METABOLIC [id number] 15:10:00 Test Item Value Reference Range Comments [...] CALCIUM (test code=CA) mg/dL 8.5-10.1 HEPATIC FUNCTION [id number] 15:10:00 Test Item Value Reference Range Comments TOTAL PROTEIN (test code=PROT) gram/dL 6.4-8.2 ALBUMIN (test code=ALB) g/dL 3.4-5.0 GLOBULIN (test code=GLOB) gram/dL 2.7-4.2 ALBUMIN/GLOBULIN RATIO (test code=A/G) 0.75-1.50 BILIRUBIN TOTAL (test code=BILT) mg/dL 0.0-1.0 BILIRUBIN DIRECT (test code=BILD) mg/dL 0.0-0.20 SGOT/AST (test code=AST) IUnit/L 15-37 SGPT/ALT (test code=ALT) IUnit/L 12-78 ALKALINE PHOSPHATASE TOTAL (test code=ALKP) IUnit/L 45-117 HCG SERUM [id number] 15:10:00 Test Item Value Reference Range Comments HCG SERUM QUAL (test NEGATIVE NEGATIVE This HCGQL test is NOT code=HCGQL) applicable for MALE patients.Check with nurse about probable order error.If Tumor Marker Test needed, nurse should order test "HCGTU"(Test #550.73818) -- [id number] 15:10:00 Test Item Value Reference Range Comments ALCOHOL (test code=ALC) mg/dL 0-3 CBC W/O [id number] 14:51:00 Test Item Value Reference Range Comments [...] (test code=MPV) 8.9 fL 6.7-11.0 CBC W/O [id number] 14:49:00 Test Item Value Reference Range Comments [...] PLATELET VOLUME (test code=MPV) fL 6.7-11.0 URINALYSIS [id number] 14:20:00 Test Item Value Reference Range Comments [...] Urine Source? Clean CatchDRUGS OF ABUSE SCREEN [id number] 14:20:00 Test Item Value Reference Range Comments URN COCAINE (test code=COCAURN) <300 ng/mL URN CANNABINOIDS (test code=CANNABURN) <50 ng/mL URN AMPHETAMINE (test code=AMPHETURN) <1000 ng/mL URN BARBITURATE (test code=BARBITURN) <200 ng/mL URN BENZODIAZEPINE (test code=BENZOURN) <200 ng/mL URN OPIATES (test code=OPIATURN) <300 ng/mL URN PHENCYCLIDINE (PCP) (test code=PHENCURN) <25 ng/mL URN METHADONE (test code=METHAURN) <300 ng/mL Urine Source? Clean CatchCBC W/O [id number] 05:41:00 Test Item Value Reference Range Comments [...] VOLUME (test code=MPV) 9.5 fL 6.7-11.0 URINALYSIS [id number] 05:28:00 Test Item Value Reference Range Comments [...] Urine Source? Clean CatchDRUGS OF ABUSE SCREEN [id number] 05:28:00 Test Item Value Reference Range Comments [...] (test code=VALP) <3.0 mcg/mL 50.0-100.0 BASIC METABOLIC [id number] 05:10:00 Test Item Value Reference Range Comments [...] (test code=CA) 8.9 mg/dL 8.5-10.1 HEPATIC FUNCTION [id number] 05:10:00 Test Item Value Reference Range Comments [...] code=ALKP) range due to change in reagent. [id number] 05:10:00 Test Item Value Reference Range Comments ALCOHOL (test code=ALC) < 3 mg/dL 0.0-3.0 INTERPRETIVE DATA NOTE: POSITIVE SCREENING RESULTS SHOULD BE CONSIDERED PRESUMPTIVE.WHEN COLLECTED FOR MEDICAL PURPOSES ONLY. SPECIMEN WILL NOTBE COLLECTED BY CHAIN OF CUSTODY.IF A CONFIRMATION OF POSITIVE RESULTS IS DESIRED, ACONFIRMATION TEST MUST BE REQUESTED BY THE PHYSICIAN AT ANADDITIONAL CHARGE TO THE PATIENT. HCG SERUM [id number] 05:08:00 Test Item Value Reference Range Comments HCG SERUM QUAL (test NEGATIVE NEGATIVE This HCGQL test is NOT code=HCGQL) applicable for MALE patients.Check with nurse about probable order error.If Tumor Marker Test needed, nurse should order test "HCGTU"(Test #550.37940) -- [id number] 05:08:00 Test Item Value Reference Range Comments ACETAMINOPHEN (test code=ACET) < 10 mcg/mL 10-30 A RANGE OF 10-30 mcg/mL IS A THERAPEUTIC RANGE. TOXIC CONCENTRATIONS: >150 mcg/mL AT 4 HOURS AFTER INGESTION >=50 mcg/mL AT 12 HOURS AFTER INGESTION [id number] 05:08:00 Test Item Value Reference Range Comments SALICYLATE (test code=CLAUDIO) < 1.7 mg/dL 2.8-20.0 BASIC METABOLIC [id number] 05:04:00 Test Item Value Reference Range Comments [...] CALCIUM (test code=CA) mg/dL 8.5-10.1 HEPATIC FUNCTION [id number] 05:04:00 Test Item Value Reference Range Comments TOTAL PROTEIN (test code=PROT) gram/dL 6.4-8.2 ALBUMIN (test code=ALB) g/dL 3.4-5.0 GLOBULIN (test code=GLOB) gram/dL 2.7-4.2 ALBUMIN/GLOBULIN RATIO (test code=A/G) 0.75-1.50 BILIRUBIN TOTAL (test code=BILT) mg/dL 0.0-1.0 BILIRUBIN DIRECT (test code=BILD) mg/dL 0.0-0.20 SGOT/AST (test code=AST) IUnit/L 15-37 SGPT/ALT (test code=ALT) IUnit/L 12-78 ALKALINE PHOSPHATASE TOTAL (test code=ALKP) IUnit/L 45-117 [id number] 05:04:00 Test Item Value Reference Range Comments ALCOHOL (test code=ALC) mg/dL 0-3 HCG SERUM [id number] 05:00:00 Test Item Value Reference Range Comments HCG SERUM QUAL (test NEGATIVE NEGATIVE This HCGQL test is NOT code=HCGQL) applicable for MALE patients.Check with nurse about probable order error.If Tumor Marker Test needed, nurse should order test "HCGTU"(Test #550.00712) -- [id number] 05:00:00 Test Item Value Reference Range Comments ACETAMINOPHEN (test code=ACET) mcg/mL 10-30 [id number] 05:00:00 Test Item Value Reference Range Comments SALICYLATE (test code=CLAUDIO) mg/dL 2.8-20.0 URINALYSIS [id number] 04:59:00 Test Item Value Reference Range Comments [...] Urine Source? Clean CatchDRUGS OF ABUSE SCREEN [id number] 04:59:00 Test Item Value Reference Range Comments URN COCAINE (test code=COCAURN) <300 ng/mL URN CANNABINOIDS (test code=CANNABURN) <50 ng/mL URN AMPHETAMINE (test code=AMPHETURN) <1000 ng/mL URN BARBITURATE (test code=BARBITURN) <200 ng/mL URN BENZODIAZEPINE (test code=BENZOURN) <200 ng/mL URN OPIATES (test code=OPIATURN) <300 ng/mL URN PHENCYCLIDINE (PCP) (test code=PHENCURN) <25 ng/mL URN METHADONE (test code=METHAURN) <300 ng/mL Urine Source? Clean CatchCBC W/AUTO [id number] 10:50:00 Test Item Value Reference Range Comments [...] (test code=MDIFF) NO, ONLY SCAN NEEDED DIFFERENTIAL [id number] 10:50:00 Test Item Value Reference Range Comments STAIN ACCEPTABILITY (test code=STN STAIN ACCEPTABLE ACCEPTABLE) POLYCHROMASIA (test code=POLC) 1+ HYPOCHROMIA (test code=HYPO) 1+ POIKILOCYTOSIS (test code=POIK) 2+ ANISOCYTOSIS (test code=ANISO) 2+ MICROCYTOSIS (test code=MICR) 2+ TEAR DROP CELLS (test code=TEAR) 1+ ELLIPTOCYTES (test code=ELL) 1+ CRENATED CELLS (test code=CREN) 1+ PLATELET ESTIMATE (test code=PLTEST) ADEQUATE PLATELET MORPHOLOGY (test code=PLTMORPH) NORMAL CBC W/AUTO [id number] 09:44:00 Test Item Value Reference Range Comments [...] (test code=MDIFF) NO, ONLY SCAN NEEDED DIFFERENTIAL [id number] 09:44:00 Test Item Value Reference Range Comments STAIN ACCEPTABILITY (test code=STN ACCEPTABLE) CABOT RINGS (test code=CAB) MORPHOLOGY COMMENT (test code=MOC) PLATELET ESTIMATE (test code=PLTEST) PLATELET MORPHOLOGY (test code=PLTMORPH) CBC W/AUTO [id number] 09:44:00 Test Item Value Reference Range Comments [...] (test code=MDIFF) NO, ONLY SCAN NEEDED DIFFERENTIAL [id number] 09:44:00 Test Item Value Reference Range Comments STAIN ACCEPTABILITY (test code=STN ACCEPTABLE) CABOT RINGS (test code=CAB) MORPHOLOGY COMMENT (test code=MOC) PLATELET ESTIMATE (test code=PLTEST) PLATELET MORPHOLOGY (test code=PLTMORPH) CBC W/AUTO [id number] 09:44:00 Test Item Value Reference Range Comments [...] (test code=MDIFF) NO, ONLY SCAN NEEDED DIFFERENTIAL [id number] 09:44:00 Test Item Value Reference Range Comments STAIN ACCEPTABILITY (test code=STN ACCEPTABLE) MORPHOLOGY COMMENT (test code=MOC) PLATELET ESTIMATE (test code=PLTEST) PLATELET MORPHOLOGY (test code=PLTMORPH) CBC W/AUTO [id number] 09:44:00 Test Item Value Reference Range Comments [...] (test code=MDIFF) NO, ONLY SCAN NEEDED DIFFERENTIAL [id number] 09:44:00 Test Item Value Reference Range Comments STAIN ACCEPTABILITY (test code=STN ACCEPTABLE) CABOT RINGS (test code=CAB) MORPHOLOGY COMMENT (test code=MOC) PLATELET ESTIMATE (test code=PLTEST) PLATELET MORPHOLOGY (test code=PLTMORPH) CBC W/AUTO [id number] 06:36:00 Test Item Value Reference Range Comments [...] (test code=MDIFF) NO, ONLY SCAN NEEDED DIFFERENTIAL [id number] 06:36:00 Test Item Value Reference Range Comments STAIN ACCEPTABILITY (test code=STN STAIN ACCEPTABLE ACCEPTABLE) POLYCHROMASIA (test code=POLC) 1+ HYPOCHROMIA (test code=HYPO) 1+ POIKILOCYTOSIS (test code=POIK) 2+ ANISOCYTOSIS (test code=ANISO) 2+ MICROCYTOSIS (test code=MICR) 1+ MACROCYTOSIS (test code=MACR) 1+ OVALOCYTES (test code=OVAL) 1+ SCHISTOCYTES (test code=DAVEY) 1+ PLATELET ESTIMATE (test code=PLTEST) ADEQUATE PLATELET MORPHOLOGY (test code=PLTMORPH) NORMAL CBC W/AUTO [id number] 05:31:00 Test Item Value Reference Range Comments [...] (test code=MDIFF) NO, ONLY SCAN NEEDED DIFFERENTIAL [id number] 05:31:00 Test Item Value Reference Range Comments STAIN ACCEPTABILITY (test code=STN ACCEPTABLE) CABOT RINGS (test code=CAB) MORPHOLOGY COMMENT (test code=MOC) PLATELET ESTIMATE (test code=PLTEST) PLATELET MORPHOLOGY (test code=PLTMORPH) CBC W/AUTO [id number] 05:31:00 Test Item Value Reference Range Comments [...] (test code=MDIFF) NO, ONLY SCAN NEEDED DIFFERENTIAL [id number] 05:31:00 Test Item Value Reference Range Comments STAIN ACCEPTABILITY (test code=STN ACCEPTABLE) CABOT RINGS (test code=CAB) MORPHOLOGY COMMENT (test code=MOC) PLATELET ESTIMATE (test code=PLTEST) PLATELET MORPHOLOGY (test code=PLTMORPH) CBC W/AUTO [id number] 05:31:00 Test Item Value Reference Range Comments [...] (test code=MDIFF) NO, ONLY SCAN NEEDED DIFFERENTIAL [id number] 05:31:00 Test Item Value Reference Range Comments STAIN ACCEPTABILITY (test code=STN ACCEPTABLE) MORPHOLOGY COMMENT (test code=MOC) PLATELET ESTIMATE (test code=PLTEST) PLATELET MORPHOLOGY (test code=PLTMORPH) CBC W/AUTO [id number] 05:31:00 Test Item Value Reference Range Comments [...] (test code=MDIFF) NO, ONLY SCAN NEEDED DIFFERENTIAL [id number] 05:31:00 Test Item Value Reference Range Comments STAIN ACCEPTABILITY (test code=STN ACCEPTABLE) CABOT RINGS (test code=CAB) MORPHOLOGY COMMENT (test code=MOC) PLATELET ESTIMATE (test code=PLTEST) PLATELET MORPHOLOGY (test code=PLTMORPH) URINALYSIS [id number] 11:33:00 Test Item Value Reference Range Comments [...] FEW #/LPF FEW Urine Source? Clean CatchURINALYSIS [id number] 11:32:00 Test Item Value Reference Range Comments [...] Urine Source? Clean Catch- XR CHEST 1 [id number] 09:51:00 FAX: Catherine Arreguin MD [phone] [place]: St: ADM Name: [facility] : 1975 Age/S: 43/F [address] Unit#: [id number] Loc: V.3047 [place] [address] Phys: Catherine Garcia MD Acct: [id number] Dis Date: Status: ADM IN PHONE #: [phone] Exam Date: 0948 FAX #: [phone] Reason: Leukocytosis EXAMS: CPT CODE: [id number] XR CHEST 1 V 66263 HISTORY: Leukocytosis. COMPARISON: April 04, 2010. No acute infiltrates, effusion or congestion is noted. The cardiac and mediastinal silhouette are within normal limits. IMPRESSION: No acute infiltrates, effusion or congestion. at 0951 Reported and signed by: Greg Ortiz M.D. CC : Catherine Garcia MD Technologist: Teressa Ashraf RT(R) Trnscrd Date/Time/By: (0955) : By: [email or web address] Orig Print D/T: S: 09/10/2018 (8881) PAGE 1 Signed ReportCBC W/AUTO [id number] 06:39:00 Test Item Value Reference Range Comments [...] (test code=MDIFF) NO, ONLY SCAN NEEDED DIFFERENTIAL [id number] 06:39:00 Test Item Value Reference Range Comments STAIN ACCEPTABILITY (test code=STN STAIN ACCEPTABLE ACCEPTABLE) HYPOCHROMIA (test code=HYPO) 1+ POIKILOCYTOSIS (test code=POIK) 2+ ANISOCYTOSIS (test code=ANISO) 2+ MICROCYTOSIS (test code=MICR) 2+ ELLIPTOCYTES (test code=ELL) 1+ PLATELET ESTIMATE (test code=PLTEST) ADEQUATE PLATELET MORPHOLOGY (test code=PLTMORPH) NORMAL CBC W/AUTO [id number] 06:16:00 Test Item Value Reference Range Comments [...] (test code=MDIFF) NO, ONLY SCAN NEEDED DIFFERENTIAL [id number] 06:16:00 Test Item Value Reference Range Comments STAIN ACCEPTABILITY (test code=STN ACCEPTABLE) CABOT RINGS (test code=CAB) MORPHOLOGY COMMENT (test code=MOC) PLATELET ESTIMATE (test code=PLTEST) PLATELET MORPHOLOGY (test code=PLTMORPH) CBC W/AUTO [id number] 06:16:00 Test Item Value Reference Range Comments [...] (test code=MDIFF) NO, ONLY SCAN NEEDED DIFFERENTIAL [id number] 06:16:00 Test Item Value Reference Range Comments STAIN ACCEPTABILITY (test code=STN ACCEPTABLE) MORPHOLOGY COMMENT (test code=MOC) PLATELET ESTIMATE (test code=PLTEST) PLATELET MORPHOLOGY (test code=PLTMORPH) CBC W/AUTO [id number] 06:16:00 Test Item Value Reference Range Comments [...] (test code=MDIFF) NO, ONLY SCAN NEEDED DIFFERENTIAL [id number] 06:16:00 Test Item Value Reference Range Comments STAIN ACCEPTABILITY (test code=STN ACCEPTABLE) MORPHOLOGY COMMENT (test code=MOC) PLATELET ESTIMATE (test code=PLTEST) PLATELET MORPHOLOGY (test code=PLTMORPH) CBC W/AUTO [id number] 06:16:00 Test Item Value Reference Range Comments [...] (test code=MDIFF) NO, ONLY SCAN NEEDED DIFFERENTIAL [id number] 06:16:00 Test Item Value Reference Range Comments STAIN ACCEPTABILITY (test code=STN ACCEPTABLE) CABOT RINGS (test code=CAB) MORPHOLOGY COMMENT (test code=MOC) PLATELET ESTIMATE (test code=PLTEST) PLATELET MORPHOLOGY (test code=PLTMORPH) CBC W/AUTO [id number] 11:46:00 Test Item Value Reference Range Comments [...] (test code=MDIFF) NO, ONLY SCAN NEEDED DIFFERENTIAL [id number] 11:46:00 Test Item Value Reference Range Comments STAIN ACCEPTABILITY (test code=STN STAIN ACCEPTABLE ACCEPTABLE) POLYCHROMASIA (test code=POLC) 1+ POIKILOCYTOSIS (test code=POIK) 2+ ANISOCYTOSIS (test code=ANISO) 2+ MICROCYTOSIS (test code=MICR) 2+ ELLIPTOCYTES (test code=ELL) 1+ ACANTHOCYTES (test code=ACAN) 1+ NONE PLATELET ESTIMATE (test code=PLTEST) ADEQUATE PLATELET MORPHOLOGY (test code=PLTMORPH) NORMAL CBC W/AUTO [id number] 11:03:00 Test Item Value Reference Range Comments [...] (test code=MDIFF) NO, ONLY SCAN NEEDED DIFFERENTIAL [id number] 11:03:00 Test Item Value Reference Range Comments STAIN ACCEPTABILITY (test code=STN ACCEPTABLE) CABOT RINGS (test code=CAB) MORPHOLOGY COMMENT (test code=MOC) PLATELET ESTIMATE (test code=PLTEST) PLATELET MORPHOLOGY (test code=PLTMORPH) CBC W/AUTO [id number] 11:03:00 Test Item Value Reference Range Comments [...] (test code=MDIFF) NO, ONLY SCAN NEEDED DIFFERENTIAL [id number] 11:03:00 Test Item Value Reference Range Comments STAIN ACCEPTABILITY (test code=STN ACCEPTABLE) CABOT RINGS (test code=CAB) MORPHOLOGY COMMENT (test code=MOC) PLATELET ESTIMATE (test code=PLTEST) PLATELET MORPHOLOGY (test code=PLTMORPH) CBC W/AUTO [id number] 11:03:00 Test Item Value Reference Range Comments [...] (test code=MDIFF) NO, ONLY SCAN NEEDED DIFFERENTIAL [id number] 11:03:00 Test Item Value Reference Range Comments STAIN ACCEPTABILITY (test code=STN ACCEPTABLE) MORPHOLOGY COMMENT (test code=MOC) PLATELET ESTIMATE (test code=PLTEST) PLATELET MORPHOLOGY (test code=PLTMORPH) CBC W/AUTO [id number] 11:03:00 Test Item Value Reference Range Comments [...] (test code=MDIFF) NO, ONLY SCAN NEEDED DIFFERENTIAL [id number] 11:03:00 Test Item Value Reference Range Comments STAIN ACCEPTABILITY (test code=STN ACCEPTABLE) CABOT RINGS (test code=CAB) MORPHOLOGY COMMENT (test code=MOC) PLATELET ESTIMATE (test code=PLTEST) PLATELET MORPHOLOGY (test code=PLTMORPH) - US PELVIS [id number] 20:39:00 Name: [facility] : 1975 Age/S: 43 / F [address] [facility] Unit #: [id number] Loc: [place] [address] Phys: Catherine Garcia MD Acct: [id number] Dis Date: Status : ADM IN PHONE #: [phone] Exam Date: 09/07/20182008 FAX #: [phone] Reason: Menorrhagia,anemia EXAMS: CPTCODE: [id number] US PELVIS COMPLETE 78720 REASON FOR EXAM: Menorrhagia,anemia EXAM ORDER DATE: [...] 1 Signed Report (CONTINUED) Name: [facility] : 1975 Age/S: 43 / F [address] [facility] Unit #: [id number] Loc: [place] [address] Phys: Catheirne Garcia MD Acct: [id number] Dis Date: Status: ADM IN PHONE #: [phone] Exam Date: 09/07/20182008 FAX #: [phone] Reason: Menorrhagia,anemia EXAMS: CPT CODE: [id number] US PELVIS COMPLETE 31895 < Continued> Simple cyst in the bilateral [...] ) Probe: PAGE 2 Signed ReportCBC W/AUTO [id number] 10:27:00 Test Item Value Reference Range Comments [...] (test NO, ONLY SCAN NEEDED code=MDIFF) DIFFERENTIAL [id number] 10:27:00 Test Item Value Reference Range Comments STAIN ACCEPTABILITY (test code=STN STAIN ACCEPTABLE ACCEPTABLE) POIKILOCYTOSIS (test code=POIK) 2+ ANISOCYTOSIS (test code=ANISO) 2+ MICROCYTOSIS (test code=MICR) 2+ PLATELET ESTIMATE (test code=PLTEST) ADEQUATE PLATELET MORPHOLOGY (test code=PLTMORPH) NORMAL CBC W/AUTO [id number] 10:02:00 Test Item Value Reference Range Comments [...] (test NO, ONLY SCAN NEEDED code=MDIFF) DIFFERENTIAL [id number] 10:02:00 Test Item Value Reference Range Comments STAIN ACCEPTABILITY (test code=STN ACCEPTABLE) MORPHOLOGY COMMENT (test code=MOC) PLATELET ESTIMATE (test code=PLTEST) PLATELET MORPHOLOGY (test code=PLTMORPH) CBC W/AUTO [id number] 10:01:00 Test Item Value Reference Range Comments [...] (test NO, ONLY SCAN NEEDED code=MDIFF) DIFFERENTIAL [id number] 10:01:00 Test Item Value Reference Range Comments STAIN ACCEPTABILITY (test code=STN ACCEPTABLE) CABOT RINGS (test code=CAB) MORPHOLOGY COMMENT (test code=MOC) PLATELET ESTIMATE (test code=PLTEST) PLATELET MORPHOLOGY (test code=PLTMORPH) CBC W/AUTO [id number] 10:01:00 Test Item Value Reference Range Comments [...] (test NO, ONLY SCAN NEEDED code=MDIFF) DIFFERENTIAL [id number] 10:01:00 Test Item Value Reference Range Comments STAIN ACCEPTABILITY (test code=STN ACCEPTABLE) MORPHOLOGY COMMENT (test code=MOC) PLATELET ESTIMATE (test code=PLTEST) PLATELET MORPHOLOGY (test code=PLTMORPH) CBC W/AUTO [id number] 10:01:00 Test Item Value Reference Range Comments [...] (test NO, ONLY SCAN NEEDED code=MDIFF) DIFFERENTIAL [id number] 10:01:00 Test Item Value Reference Range Comments STAIN ACCEPTABILITY (test code=STN ACCEPTABLE) CABOT RINGS (test code=CAB) MORPHOLOGY COMMENT (test code=MOC) PLATELET ESTIMATE (test code=PLTEST) PLATELET MORPHOLOGY (test code=PLTMORPH) CBC W/AUTO [id number] 02:43:00 Test Item Value Reference Range Comments [...] (test code=MDIFF) NO, ONLY SCAN NEEDED DIFFERENTIAL [id number] 02:43:00 Test Item Value Reference Range Comments STAIN ACCEPTABILITY (test code=STN STAIN ACCEPTABLE ACCEPTABLE) POLYCHROMASIA (test code=POLC) 1+ HYPOCHROMIA (test code=HYPO) 2+ POIKILOCYTOSIS (test code=POIK) 1+ ANISOCYTOSIS (test code=ANISO) 3+ MICROCYTOSIS (test code=MICR) 3+ ELLIPTOCYTES (test code=ELL) 1+ PLATELET ESTIMATE (test code=PLTEST) ADEQUATE PLATELET MORPHOLOGY (test code=PLTMORPH) NORMAL COMPREHENSIVE METABOLIC [id number] 02:29:00 Test Item Value Reference Range Comments [...] due to change in reagent. THYROID STIMULATING [id number] 02:29:00 Test Item Value Reference Range Comments THYROID STIMULATING HORMONE 1.140 uIU/mL 0.36-3.74 TSH REFERENCE RANGES: (test code=TSH) EUTHYROID: 0.35 - 4.3 mIU/mL HYPO : > 5.5 mIU/mL HYPER : < 0.35 mIU/mL COMPREHENSIVE METABOLIC [id number] 02:09:00 Test Item Value Reference Range Comments [...] TOTAL (test code=ALKP) IUnit/L 45-117 THYROID STIMULATING [id number] 02:09:00 Test Item Value Reference Range Comments THYROID STIMULATING HORMONE (test code=TSH) uIU/mL 0.36-3.74 CBC W/AUTO [id number] 02:02:00 Test Item Value Reference Range Comments [...] (test code=MDIFF) NO, ONLY SCAN NEEDED DIFFERENTIAL [id number] 02:02:00 Test Item Value Reference Range Comments STAIN ACCEPTABILITY (test code=STN ACCEPTABLE) CABOT RINGS (test code=CAB) MORPHOLOGY COMMENT (test code=MOC) PLATELET ESTIMATE (test code=PLTEST) PLATELET MORPHOLOGY (test code=PLTMORPH) CBC W/AUTO [id number] 02:02:00 Test Item Value Reference Range Comments [...] (test code=MDIFF) NO, ONLY SCAN NEEDED DIFFERENTIAL [id number] 02:02:00 Test Item Value Reference Range Comments STAIN ACCEPTABILITY (test code=STN ACCEPTABLE) CABOT RINGS (test code=CAB) MORPHOLOGY COMMENT (test code=MOC) PLATELET ESTIMATE (test code=PLTEST) PLATELET MORPHOLOGY (test code=PLTMORPH) CBC W/AUTO [id number] 02:02:00 Test Item Value Reference Range Comments [...] (test code=MDIFF) NO, ONLY SCAN NEEDED DIFFERENTIAL [id number] 02:02:00 Test Item Value Reference Range Comments STAIN ACCEPTABILITY (test code=STN ACCEPTABLE) MORPHOLOGY COMMENT (test code=MOC) PLATELET ESTIMATE (test code=PLTEST) PLATELET MORPHOLOGY (test code=PLTMORPH) CBC W/AUTO [id number] 02:02:00 Test Item Value Reference Range Comments [...] (test code=MDIFF) NO, ONLY SCAN NEEDED DIFFERENTIAL [id number] 02:02:00 Test Item Value Reference Range Comments STAIN ACCEPTABILITY (test code=STN ACCEPTABLE) CABOT RINGS (test code=CAB) MORPHOLOGY COMMENT (test code=MOC) PLATELET ESTIMATE (test code=PLTEST) PLATELET MORPHOLOGY (test code=PLTMORPH) [id number] 21:10:00 Test Item Value Reference Range Comments PHOSPHORUS (test code=PHOS) 4.0 mg/dL 2.5-4.9 [id number] 21:10:00 Test Item Value Reference Range Comments MAGNESIUM (test code=MAG) 2.2 mg/dL 1.8-2.4 VITAMIN [id number] 21:10:00 Test Item Value Reference Range Comments VITAMIN B12 (test code=VITB12) 327 pg/mL 193-986 FOLIC [id number] 21:10:00 Test Item Value Reference Range Comments FOLIC ACID (test code=FOL) 54.3 ng/mL 3.10-17.50 URINALYSIS [id number] 20:54:00 Test Item Value Reference Range Comments [...] #/LPF FEW Urine Source? Clean CatchUR HCG [id number] 20:54:00 Test Item Value Reference Range Comments UR HCG QUAL (test NEGATIVE This HCGQL test is NOT applicable code=HCGQLU) for MALE patients.Check with nurse about probable order error.If Tumor Marker Test needed, nurse should order test "HCGTU"(Test #550.21467) Urine Source? Clean CatchDRUGS OF ABUSE SCREEN [id number] 20:54:00 Test Item Value Reference Range Comments [...] <300 ng/mL code=METHAURN) Urine Source? Clean CatchPROTHROMBIN [id number] 20:51:00 Test Item Value Reference Range Comments [...] (2.5-3.5) IS PATIENT ON ANTICOAGULANTS? NTHROMBOPLASTIN TIME [id number] 20:51:00 Test Item Value Reference Range Comments THROMBOPLASTIN TIME PARTIAL (test code=PTT) 31.3 seconds 25.0-36.5 IS PATIENT ON ANTICOAGULANTS? NFE W/TOTAL IRON BINDING CAP.2018-09-06 20:30:00 Test Item Value Reference Range Comments SERUM IRON (test code=IRON) 11 ug/dL 50-175 TOTAL IRON BINDING CAPACITY (test code=TIBC) 437 mcg/dL 250-450 IRON SATURATION (test code=FESAT) 2.52 % 13-45 [id number] 20:30:00 Test Item Value Reference Range Comments FERRITIN (test code=ELAINE) 3 ng/mL 8-388 [id number] 20:25:00 Test Item Value Reference Range Comments AMMONIA (test code=AMM) 19 umol/L 11-32 URINALYSIS [id number] 20:21:00 Test Item Value Reference Range Comments [...] #/LPF FEW Urine Source? Clean CatchUR HCG [id number] 20:21:00 Test Item Value Reference Range Comments UR HCG QUAL (test NEGATIVE This HCGQL test is NOT applicable code=HCGQLU) for MALE patients.Check with nurse about probable order error.If Tumor Marker Test needed, nurse should order test "HCGTU"(Test #550.15374) Urine Source? Clean CatchDRUGS OF ABUSE SCREEN [id number] 20:21:00 Test Item Value Reference Range Comments URN COCAINE (test code=COCAURN) <300 ng/mL URN CANNABINOIDS (test code=CANNABURN) <50 ng/mL URN AMPHETAMINE (test code=AMPHETURN) <1000 ng/mL URN BARBITURATE (test code=BARBITURN) <200 ng/mL URN BENZODIAZEPINE (test code=BENZOURN) <200 ng/mL URN OPIATES (test code=OPIATURN) <300 ng/mL URN PHENCYCLIDINE (PCP) (test code=PHENCURN) <25 ng/mL URN METHADONE (test code=METHAURN) <300 ng/mL Urine Source? Clean CatchURINALYSIS [id number] 20:01:00 Test Item Value Reference Range Comments [...] #/LPF FEW Urine Source? Clean CatchUR HCG [id number] 20:01:00 Test Item Value Reference Range Comments UR HCG QUAL (test code=HCGQLU) Urine Source? Clean CatchDRUGS OF ABUSE SCREEN [id number] 20:01:00 Test Item Value Reference Range Comments [...] (test code=CK) 51 IUnit/L 26-208 BASIC METABOLIC [id number] 17:18:00 Test Item Value Reference Range Comments [...] (test code=CA) 8.7 mg/dL 8.5-10.1 HEPATIC FUNCTION [id number] 17:18:00 Test Item Value Reference Range Comments [...] due to change in reagent. HCG SERUM [id number] 17:18:00 Test Item Value Reference Range Comments HCG SERUM QUAL (test NEGATIVE NEGATIVE This HCGQL test is NOT code=HCGQL) applicable for MALE patients.Check with nurse about probable order error.If Tumor Marker Test needed, nurse should order test "HCGTU"(Test #550.31136) -- [id number] 17:18:00 Test Item Value Reference Range Comments ALCOHOL (test code=ALC) 5 mg/dL 0.0-3.0 INTERPRETIVE DATA NOTE: POSITIVE SCREENING RESULTS SHOULD BE CONSIDERED PRESUMPTIVE.WHEN COLLECTED FOR MEDICAL PURPOSES ONLY. SPECIMEN WILL NOTBE COLLECTED BY CHAIN OF CUSTODY.IF A CONFIRMATION OF POSITIVE RESULTS IS DESIRED, ACONFIRMATION TEST MUST BE REQUESTED BY THE PHYSICIAN AT ANADDITIONAL CHARGE TO THE PATIENT. BASIC METABOLIC [id number] 17:03:00 Test Item Value Reference Range Comments [...] CALCIUM (test code=CA) mg/dL 8.5-10.1 HEPATIC FUNCTION [id number] 17:03:00 Test Item Value Reference Range Comments TOTAL PROTEIN (test code=PROT) gram/dL 6.4-8.2 ALBUMIN (test code=ALB) g/dL 3.4-5.0 GLOBULIN (test code=GLOB) gram/dL 2.7-4.2 ALBUMIN/GLOBULIN RATIO (test code=A/G) 0.75-1.50 BILIRUBIN TOTAL (test code=BILT) mg/dL 0.0-1.0 BILIRUBIN DIRECT (test code=BILD) mg/dL 0.0-0.20 SGOT/AST (test code=AST) IUnit/L 15-37 SGPT/ALT (test code=ALT) IUnit/L 12-78 ALKALINE PHOSPHATASE TOTAL (test code=ALKP) IUnit/L 45-117 HCG SERUM [id number] 17:03:00 Test Item Value Reference Range Comments HCG SERUM QUAL (test NEGATIVE NEGATIVE This HCGQL test is NOT code=HCGQL) applicable for MALE patients.Check with nurse about probable order error.If Tumor Marker Test needed, nurse should order test "HCGTU"(Test #550.87738) -- [id number] 17:03:00 Test Item Value Reference Range Comments ALCOHOL (test code=ALC) mg/dL 0-3 BASIC METABOLIC [id number] 17:00:00 Test Item Value Reference Range Comments [...] CALCIUM (test code=CA) mg/dL 8.5-10.1 HEPATIC FUNCTION [id number] 17:00:00 Test Item Value Reference Range Comments TOTAL PROTEIN (test code=PROT) gram/dL 6.4-8.2 ALBUMIN (test code=ALB) g/dL 3.4-5.0 GLOBULIN (test code=GLOB) gram/dL 2.7-4.2 ALBUMIN/GLOBULIN RATIO (test code=A/G) 0.75-1.50 BILIRUBIN TOTAL (test code=BILT) mg/dL 0.0-1.0 BILIRUBIN DIRECT (test code=BILD) mg/dL 0.0-0.20 SGOT/AST (test code=AST) IUnit/L 15-37 SGPT/ALT (test code=ALT) IUnit/L 12-78 ALKALINE PHOSPHATASE TOTAL (test code=ALKP) IUnit/L 45-117 HCG SERUM [id number] 17:00:00 Test Item Value Reference Range Comments HCG SERUM QUAL (test NEGATIVE NEGATIVE This HCGQL test is NOT code=HCGQL) applicable for MALE patients.Check with nurse about probable order error.If Tumor Marker Test needed, nurse should order test "HCGTU"(Test #550.23340) -- [id number] 17:00:00 Test Item Value Reference Range Comments ALCOHOL (test code=ALC) mg/dL 0-3 CBC W/O [id number] 16:52:00 Test Item Value Reference Range Comments [...]
[2019-05-03] MEDS ORDERED: LIDOCAINE VISCOUS 2% SOLN 15 ML UDC ONE (19:09)
[2019-05-03] MEDS ORDERED: MAGNE/ALUM HYDROXD 30 ML UCUP ONE (19:09)
--- NOTE | 2019-05-03 19:34 | ER ---
Nurse's Notes [facility] Name: Gi Bentley Age: 44 yrs Sex: Female : 1975 Arrival Date: 05/03/2019 Time: 18:36 Bed 27 Private MD: Diagnosis: Streptococcal pharyngitis;Abnormal uterine and vaginal bleeding, unspecified Presentation: 05/02 18:36 Chief complaint: Patient states: Sore throat since yesterday, states she saw white aj1 patches on her throat. Patient also reports that she has had an increase in vaginal bleeding and clots, state that she has vaginal bleeding all the time but this is heavier than usual starting today. Reports a history of uterine fibroids, states she was told she needed to get a hysterectomy but has not followed up with a PRODUCTION OR PLANT ENGINEER to get that done. Coronavirus screen: The patient has NOT traveled to a country currently being monitored by the CDC within the last 14 days. Ebola Screen: Patient denies travel to an Ebola-affected area in the 21 days before illness onset. Initial Sepsis Screen: Does the patient meet any 2 criteria? No. Patient's initial sepsis screen is negative. Does the patient have a suspected source of infection? No. Patient's initial sepsis screen is negative. Risk Assessment: Do you want to hurt yourself or someone else? Patient reports no desire to harm self or others. 18:36 Method Of Arrival: EMS: [facility] aj1 18:36 Acuity: FIDE 3 aj1 19:31 Onset of symptoms was April 2019. mg2 Triage Assessment: 18:41 General: Appears in no apparent distress. comfortable, Behavior is calm, cooperative, aj1 appropriate for age. Pain: Pain currently is 5 out of 10 on a pain scale. EENT: Reports sore throat. Neuro: Level of Consciousness is awake, alert, obeys commands. : Reports vaginal bleeding that is bright red, with clots, heavy flow. 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 aj1 Historical: - Allergies: 18:41 No Known Allergies; aj1 - Home Meds: 18:41 naltrexone 50 mg Oral tab 1 tab once daily [Active]; ferrous sulfate 325 mg (65 mg aj1 iron) Oral tab 325 mg daily [Active]; trazodone 100 mg Oral tab 1 tab nightly [Active]; olanzapine 20 mg Oral tab 1 tab once daily [Active]; Macrobid 100 mg Oral cap 1 cap every 12 hours [Active]; fluoxetine 20 mg Oral tab 1 tab once daily [Active]; gabapentin 300 mg Oral cap 1 cap 3 times per day [Active]; hydroxyzine pamoate 100 mg Oral cap 1 cap three times a day [Active]; - PMHx: 18:41 Anxiety; Bipolar disorder; Schizophrenia; Anemia; uterine fibroids; aj1 - Immunization history:: Flu vaccine is not up to date. - Social history:: Smoking status: Patient reports the use of cigarette tobacco products, smokes one-half pack cigarettes per day. Screenin:05 Abuse screen: Denies threats or abuse. Denies injuries from another. Nutritional aj1 screening: No deficits noted. Tuberculosis screening: No symptoms or risk factors identified. 19:32 Fall Risk None identified. mg2 Assessment: 18:40 General: Appears in no apparent distress. comfortable, Behavior is calm, cooperative, aj1 appropriate for age. Pain: Complains of pain in suprapubic area, left aspect of posterior pharynx and right aspect of posterior pharynx Pain currently is 5 out of 10 on a pain scale. Neuro: Level of Consciousness is awake, alert, obeys commands, Oriented to person, place, time, situation. Cardiovascular: Patient's skin is warm and dry. Respiratory: Airway is patent Respiratory effort is even, unlabored, Respiratory pattern is regular, symmetrical. GI: No signs and/or symptoms were reported involving the gastrointestinal system. : Reports vaginal bleeding that is bright red, with clots, heavy flow. : Reports. EENT: Throat is reddened has patchy exudate bilaterally. Derm: No signs and/or symptoms reported regarding the dermatologic system. Skin is pink, warm \T\ dry. normal. Musculoskeletal: No signs and/or symptoms reported regarding the musculoskeletal system. Circulation, motion, and sensation intact. Vital Signs: 18:36 BP 115 / 73; Pulse 83; Resp 18; Temp 98.1; Pulse Ox 98% on R/A; Weight 58.97 kg (R); aj1 Height 5 ft. 2 in. (157.48 cm) (R); Pain 5/10; 19:12 BP 108 / 70 Supine; Pulse 74; Resp 18; Pulse Ox 99% on R/A; mg2 19:12 BP 109 / 69 Sitting; Pulse 74; Resp 18; Pulse Ox 99% on R/A; mg2 19:12 BP 109 / 74 Standing; Pulse 84; Resp 18; Pulse Ox 99% on R/A; mg2 18:36 Body Mass Index 23.78 (58.97 kg, 157.48 cm) aj1 ED Course: 18:36 Patient arrived in ED. aj1 18:39 Triage completed. aj1 18:41 Arm band placed on. aj1 18:43 Karyn Tian FNP-C [facility]. kb 18:43 Lowell Butsamante MD is Attending Physician. kb 19:05 Patient has correct armband on for positive identification. Bed in low position. Call aj1 light in reach. Side rails up X 1. 19:05 No provider procedures requiring assistance completed. aj1 19:12 Blu Champion, RN is Primary Nurse. mg2 19:46 Patient did not have IV access during this emergency room visit. mg2 Administered Medications: 19:12 Drug: GI Cocktail without - (Maalox Suspension 30 ml, Lidocaine Liquid 2 % 15 mg2 ml) Route: PO; 19:46 Follow up: Response: No adverse reaction mg2 19:45 Drug: Augmentin 875 mg Route: PO; mg2 19:45 Follow up: Response: No adverse reaction; Medication administered at discharge. mg2 Outcome: 19:34 Discharge ordered by MD. kb 19:46 Discharged to home ambulatory. mg2 19:46 Condition: stable 19:46 Discharge instructions given to patient, Instructed on discharge instructions, follow up and referral plans. medication usage, Demonstrated understanding of instructions, follow-up care, medications, Prescriptions given X 1. 19:46 Patient left the ED. mg2 Signatures: Karyn Tian FNP-C SPRAY UNIT FEEDER-CkAretha Baldwin RN RN aj1 Blu Champion, RN RN mg2 Corrections: (The following items were deleted from the chart) 19:07 19:05 General: Appears in no apparent distress. comfortable, Behavior is calm, aj1 cooperative, appropriate for age, aj1 19:07 19:05 Pain: Complains of pain in suprapubic area, left aspect of posterior pharynx and aj1 right aspect of posterior pharynx Pain currently is 5 out of 10 on a pain scale. aj1 19:07 19:05 Neuro: Level of Consciousness is awake, alert, obeys commands, Oriented to aj1 person, place, time, situation, [facility] : 19:05 Cardiovascular: Patient's skin is warm and dry. [place] [address] 19:05 Respiratory: Airway is patent Respiratory effort is even, unlabored, Respiratory [facility] pattern is regular, symmetrical, [facility] :09 07:05 GI: No signs and/or symptoms were reported involving the gastrointestinal system. [place] [address] :05 : Reports vaginal bleeding that is bright red, with clots, heavy flow [place] [address] 19:05 EENT: Throat is reddened has patchy exudate bil[facility] 19:[facility] : Reports [place] [address] :05 Derm: No signs and/or symptoms reported regarding the dermatologic system. Skin aj1 is pink, warm \T\ dry. normal, [facility] :05 Musculoskeletal: No signs and/or symptoms reported regarding the musculoskeletal aj system. Circulation, motion, and sensation intact. aj1
--- NOTE | 2019-05-03 19:34 | EDPHYS ---
Physician Documentation [facility] Name: Gi Bentley Age: 44 yrs Sex: Female : 1975 Arrival Date: 05/03/2019 Time: 18:36 Bed 27 Private MD: ED Physician Lowell Bustamante HPI: 05/02 21:02 This 44 yrs old Female presents to ER via EMS with complaints of Vaginal kb Bleeding, Sore Throat. 21:02 The patient presents with sore throat. The patient describes throat pain as constant. kb Onset: The symptoms/episode began/occurred yesterday. Severity of symptoms: At their worst the symptoms were moderate, in the emergency department the symptoms are unchanged. Modifying factors: The symptoms are alleviated by nothing, the symptoms are aggravated by swallowing, Patient's oral intake status: limited fluid intake, limited food intake, Denies contact with similarly ill indivduals. Associated signs and symptoms: Pertinent positives: Sore throat. The patient has not experienced similar symptoms in the past. The patient has not recently seen a physician. 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 aj1 Historical: - Allergies: 18:41 No Known Allergies; aj1 - Home Meds: 18:41 naltrexone 50 mg Oral tab 1 tab once daily [Active]; ferrous sulfate 325 mg (65 mg aj1 iron) Oral tab 325 mg daily [Active]; trazodone 100 mg Oral tab 1 tab nightly [Active]; olanzapine 20 mg Oral tab 1 tab once daily [Active]; Macrobid 100 mg Oral cap 1 cap every 12 hours [Active]; fluoxetine 20 mg Oral tab 1 tab once daily [Active]; gabapentin 300 mg Oral cap 1 cap 3 times per day [Active]; hydroxyzine pamoate 100 mg Oral cap 1 cap three times a day [Active]; - PMHx: 18:41 Anxiety; Bipolar disorder; Schizophrenia; Anemia; uterine fibroids; aj1 - Immunization history:: Flu vaccine is not up to date. - Social history:: Smoking status: Patient reports the use of cigarette tobacco products, smokes one-half pack cigarettes per day. ROS: 20:59 Constitutional: Negative for fever, chills, and weight loss, Neck: Negative for injury, kb pain, and swelling, Cardiovascular: Negative for chest pain, palpitations, and edema, Respiratory: Negative for shortness of breath, cough, wheezing, and pleuritic chest pain, Abdomen/GI: Negative for abdominal pain, nausea, vomiting, diarrhea, and constipation, Back: Negative for injury and pain, MS/Extremity: Negative for injury and deformity, Skin: Negative for injury, rash, and discoloration, Neuro: Negative for headache, weakness, numbness, tingling, and seizure. 20:59 ENT: Positive for sore throat. 20:59 : Positive for vaginal bleeding. Exam: 21:01 Constitutional: This is a well developed, well nourished patient who is awake, alert, kb and in no acute distress. Head/Face: Normocephalic, atraumatic. Neck: Trachea midline, no thyromegaly or masses palpated, and no cervical lymphadenopathy. Supple, full range of motion without nuchal rigidity, or vertebral point tenderness. No Meningismus. Chest/axilla: Normal chest wall appearance and motion. Nontender with no deformity. No lesions are appreciated. Cardiovascular: Regular rate and rhythm with a normal S1 and S2. No gallops, murmurs, or rubs. Normal PMI, no JVD. No pulse deficits. Respiratory: Lungs have equal breath sounds bilaterally, clear to auscultation and percussion. No rales, rhonchi or wheezes noted. No increased work of breathing, no retractions or nasal flaring. Abdomen/GI: Soft, non-tender, with normal bowel sounds. No distension or tympany. No guarding or rebound. No evidence of tenderness throughout. Back: No spinal tenderness. No costovertebral tenderness. Full range of motion. Skin: Warm, dry with normal turgor. Normal color with no rashes, no lesions, and no evidence of cellulitis. MS/ Extremity: Pulses equal, no cyanosis. Neurovascular intact. Full, normal range of motion. Neuro: Awake and alert, GCS 15, oriented to person, place, time, and situation. Cranial nerves II-XII grossly intact. Motor strength 5/5 in all extremities. Sensory grossly intact. Cerebellar exam normal. Normal gait. 21:01 ENT: External ear(s): are unremarkable, Ear canal(s): are normal, TM's: are normal, Nose: is normal, Mouth: is normal, Posterior pharynx: Airway: normal, no evidence of obstruction, Tonsils: bilaterally enlarged, with erythema, Uvula: normal, midline, erythema, that is moderate. Vital Signs: 18:36 BP 115 / 73; Pulse 83; Resp 18; Temp 98.1; Pulse Ox 98% on R/A; Weight 58.97 kg (R); aj1 Height 5 ft. 2 in. (157.48 cm) (R); Pain 5/10; 19:12 BP 108 / 70 Supine; Pulse 74; Resp 18; Pulse Ox 99% on R/A; mg2 19:12 BP 109 / 69 Sitting; Pulse 74; Resp 18; Pulse Ox 99% on R/A; mg2 19:12 BP 109 / 74 Standing; Pulse 84; Resp 18; Pulse Ox 99% on R/A; mg2 18:36 Body Mass Index 23.78 (58.97 kg, 157.48 cm) aj1 MDM: 18:44 Patient medically screened. kb 19:31 Data reviewed: vital signs, nurses notes. Data interpreted: Pulse oximetry: on room air kb is 99 %. Interpretation: normal. Counseling: I had a detailed discussion with the patient and/or guardian regarding: the historical points, exam findings, and any diagnostic results supporting the discharge/admit diagnosis, lab results, the need for outpatient follow up, a family practitioner. 05/02 18:44 Order name: Strep; Complete Time: 19:29 kb 05/02 18:44 Order name: Orthostatics; Complete Time: 19:12 kb Administered Medications: 19:12 Drug: GI Cocktail without - (Maalox Suspension 30 ml, Lidocaine Liquid 2 % 15 mg2 ml) Route: PO; 19:46 Follow up: Response: No adverse reaction mg2 19:45 Drug: Augmentin 875 mg Route: PO; mg2 19:45 Follow up: Response: No adverse reaction; Medication administered at discharge. mg2 Disposition: 05/03/19 19:34 Discharged to Home. Impression: Streptococcal pharyngitis, Abnormal uterine and vaginal bleeding, unspecified. - Condition is Stable. - Discharge Instructions: Strep Throat, Stov-fe-Ajhy, Uterine Fibroids, Bvvg-cl-Uaxn. - Prescriptions for Amoxicillin 875 mg Oral Tablet - take 1 tablet by ORAL route every 12 hours for 10 days; 20 tablet. - Medication Reconciliation Form, Thank You Letter, Antibiotic Education, Prescription Opioid Use form. - Follow up: Emergency Department; When: As needed; Reason: Worsening of condition. Follow up: Private Physician; When: 2 - 3 days; Reason: Recheck today's complaints, Continuance of care, Re-evaluation by your physician. Addendum: 05/06/2019 10:45 Co-signature as Attending Physician, Lowell Bustamante MD I agree with the assessment and k dr plan of care. Signatures: Dispatcher [employer] EDOK Karyn Tian, ADULT BASIC STUDIES TEACHER-C ADULT BASIC STUDIES TEACHER-CkAretha Baldwin, RN RN aj1 Lowell Bustamante MD MD kdr Blu Champion RN RN mg2 Corrections: (The following items were deleted from the chart) 05/02 19:46 19:34 05/03/2019 19:34 Discharged to Home. Impression: Streptococcal pharyngitis; mg2 Abnormal uterine and vaginal bleeding, unspecified. Condition is Stable. Forms are Medication Reconciliation Form, Thank You Letter, Antibiotic Education, Prescription Opioid Use. Follow up: Emergency Department; When: As needed; Reason: Worsening of condition. Follow up: Private Physician; When: 2 - 3 days; Reason: Recheck today's complaints, Continuance of care, Re-evaluation by your physician. kb
[2019-05-03] MEDS ORDERED: AMOX/K CLAV 875 MG TAB ONE (19:39)
[2019-05-03 19:58] VITALS: TEMP 98.1
[2019-05-03 20:00] VITALS: BP 109/74; O2SAT 99
== END 2019-05-03 19:46 | disposition home or self-care (01) ==
LOC: ER 18:30
DX: J02.0 Streptococcal pharyngitis (principal); N93.9 Abnormal uterine and vaginal bleeding, unspecified; F31.9 Bipolar disorder, unspecified; F20.9 Schizophrenia, unspecified; Z72.0 Tobacco use
CPT/HCPCS: 87081; 99283